=== PATIENT | female | born 1970 ===

== ENCOUNTER 2020-04-12 15:49 | Outpatient (REF) | payer OTHER, SELFPAY ==
[2020-04-12 18:01] LABS: Albumin Level 4.2 g/dL (3.5-5.0); Calcium 10.2 mg/dL (8.4-10.2); Phosphorus 2.2 mg/dL (2.7-4.5)
[2020-04-12 18:25] LABS: Free T4 (Free Thyroxine) 0.84 ng/dL (0.71-1.85); Thyroid Stimulating Hormone 0.88 mIU/mL (0.32-4.0)
[2020-04-14 20:11] LABS: Calcium (PTHI) 9.9 mg/dL (8.6-10.2); PTHI 131 pg/mL (14-64)
[2020-04-17 10:26] LABS: Calcium, Ionized 5.5 mg/dL (4.8-5.6)
== END 2020-04-12 15:50 | disposition home or self-care (01) ==
LOC: HO.LAB 15:49
PROVIDERS: PCP Internal Medicine; Referring Provider Internal Medicine; Visit Provider Internal Medicine
DX: E20.9 Hypoparathyroidism, unspecified (principal); E21.3 Hyperparathyroidism, unspecified; E55.9 Vitamin D deficiency, unspecified
CPT/HCPCS: 82040; 82306; 82310; 82330; 83970; 84100; 84439; 84443; 99202; 99204

== ENCOUNTER 2021-03-23 16:54 | Emergency (ER) | payer OTHER, SELFPAY ==
--- NOTE | ~2021-03-23 | XR_ITS ---
EXAMINATION: XR CHEST CLINICAL INFORMATION: Chest pain COMPARISON: 05/10/2019 TECHNIQUE: Frontal view of the chest was obtained. FINDINGS: No significant abnormality is noted involving the heart, lungs, mediastinum, bony thorax or soft tissues. XR/XR chest 1V IMPRESSION: Unremarkable examination.
--- NOTE | 2021-03-23 16:56 | ECG_ITS ---
Test Reason : CHEST PAIN Blood Pressure : / mmHG Vent. Rate : 073 BPM Atrial Rate : 073 BPM P-R Int : 134 ms QRS Dur : 078 ms QT Int : 386 ms P-R-T Axes : 078 003 043 degrees QTc Int : 425 ms Normal sinus rhythm Normal ECG When compared with ECG of 10-MAY-2019 17:54, No significant change was found Referred By: Generic ED Physician Electronically Signed By:ESTEBAN LEOS
[2021-03-23 18:28] VITALS: BP 147/87; PULSE 77; RESP 18; TEMP 36.3; O2SAT 100; BMI 28.5
== END 2021-03-23 19:10 | disposition left against medical advice (07) ==
PROVIDERS: Emergency Provider Emergency Medicine; PCP Internal Medicine
DX: R07.9 Chest pain, unspecified (principal)
CPT/HCPCS: 71045; 93005; 99283

== ENCOUNTER 2021-06-25 13:06 | Outpatient (REF) | payer OTHER, SELFPAY ==
--- NOTE | ~2021-06-25 | XR_ITS ---
EXAMINATION: XR LUMBAR SPINE CLINICAL INFORMATION: Low back pain, unspecified. COMPARISON: Radiograph dated 08/18/2019. TECHNIQUE: AP and lateral views of the lumbar spine and lateral view of the lumbosacral junction. FINDINGS: Vertebral body heights are normal. No fracture or spondylolisthesis. Intervertebral disc heights are maintained without significant degenerative disc disease. Bone mineralization is normal. Soft tissues are unremarkable. Minimal osteoarthritis in the right SI joint. XR/XR lumbar spine 2-3V IMPRESSION: Lumbar spine appears relatively well preserved without significant spondylosis.
== END 2021-06-25 13:07 | disposition home or self-care (01) ==
LOC: HO.HMGCX 13:06
PROVIDERS: PCP Internal Medicine; Visit Provider Internal Medicine
DX: M54.50 Low back pain, unspecified (principal); K21.9 Gastro-esophageal reflux disease without esophagitis
CPT/HCPCS: 72100

== ENCOUNTER 2021-07-30 13:26 | Outpatient (REF) | payer OTHER, SELFPAY ==
--- NOTE | ~2021-07-30 | XR_ITS ---
EXAMINATION: XR CHEST CLINICAL INFORMATION: Dyspnea COMPARISON: Previous chest x-ray most recent March 2021 TECHNIQUE: 2 views of the chest were obtained. FINDINGS: No significant abnormality is noted involving the heart, lungs, mediastinum, bony thorax or soft tissues. XR/XR chest 2V IMPRESSION: Unremarkable examination.
== END 2021-07-30 13:27 | disposition home or self-care (01) ==
LOC: HO.XRAY 13:26
PROVIDERS: PCP Internal Medicine; Visit Provider Internal Medicine
DX: R06.00 Dyspnea, unspecified (principal); G47.19 Other hypersomnia
CPT/HCPCS: 71046; 99202

== ENCOUNTER → 2021-09-17 12:49 | Outpatient (REF) | payer OTHER, SELFPAY ==
--- NOTE | 2021-09-17 14:40 | PFT_ITS ---
INDICATION: Dyspnea. SPIROMETRY: FEV1 to FVC 86% with an FEV1 of 2.46 L, which is 82% predicted, and an FVC of 2.87 L, which is 78% predicted. No significant response to bronchodilators noted. Maximum voluntary ventilation 94% predicted. LUNG VOLUMES: Total lung capacity 75% predicted with a residual volume of 69% predicted, and an expiratory reserve volume of 45% predicted. DIFFUSION CAPACITY: DLCO 50% predicted. COMPARISONS: None available. INTERPRETATION: No obstructive ventilatory defect. No significant response to bronchodilators noted and normal maximum voluntary ventilation. However, the patient does have a mild restrictive ventilatory defect consistent with mild restrictive lung disease. In addition to that, there is a decrease in the expiratory reserve volume secondary to an elevated BMI. The patient does have a moderate diffusion impairment secondary to the restrictive disease. Need to consider underlying parenchymal lung conditions. Should also correct for hemoglobin. Clinical correlation warranted. Riaz Luis MD MR/MODL / [id number]
== END ==
LOC: HO.SL 12:49
PROVIDERS: PCP Internal Medicine; Visit Provider Internal Medicine
DX: R06.00 Dyspnea, unspecified (principal); G47.19 Other hypersomnia; F17.210 Nicotine dependence, cigarettes, uncomplicated; Z79.899 Other long term (current) drug therapy
CPT/HCPCS: 94060; 94727; 94729; 95806; 99212

== ENCOUNTER 2022-09-19 12:38 | Outpatient (REF) | payer OTHER, SELFPAY ==
--- NOTE | ~2022-09-19 | XR_ITS ---
EXAMINATION: XR RIBS, RIGHT CLINICAL INFORMATION: Chest wall pain COMPARISON: Previous chest x-ray July 2021. TECHNIQUE: 3 views of the right ribs were obtained. Single chest x-ray performed. FINDINGS: Lungs are clear. No consolidation, pneumothorax, or pleural effusion. The cardiomediastinal silhouette and pulmonary vasculature are normal. There is a fracture of the distal anterior aspect of the right ninth rib. No other distinct fractures are seen. XR/XR ribs RT min 3V w CXR1V IMPRESSION: Fracture of the distal anterior right ninth rib. No airspace consolidation or pneumothorax seen.
== END 2022-09-19 12:39 | disposition home or self-care (01) ==
LOC: HO.HMGCX 12:38
PROVIDERS: PCP Internal Medicine; Visit Provider Internal Medicine
DX: R07.81 Pleurodynia (principal)
CPT/HCPCS: 71101

== ENCOUNTER 2022-10-07 15:16 | Outpatient (REF) | payer OTHER, SELFPAY ==
--- NOTE | ~2022-10-07 | CT_ITS ---
EXAMINATION: Chest CT without contrast/high-resolution CLINICAL INFORMATION: Other nonspecific abnormal finding of lung field COMPARISON: Previous chest x-ray September 2022 and chest CTA May 2019 TECHNIQUE: Axial images through the chest without contrast. Thin cut high-resolution axial images also performed. Sagittal and coronal reconstructions obtained on the technologist's workstation. This CT examination was performed using dose optimization techniques as appropriate, variously including the following: *Automated exposure control *Adjustment of mA and/or kV according to patient size (this includes techniques or standardized protocols for targeted exams where dose is matched to indication/reason for exam; i.e. extremities or head) *Use of iterative reconstruction technique DLP 1 3 8 mg/cm FINDINGS: There are several small bilateral upper lobe pulmonary nodules or micronodules. Largest left pulmonary nodule measures 2 mm for example axial image 33 series 6. Largest right pulmonary nodule measures 2 mm for example axial image 63 series 6. There is a 3 mm semisolid right middle lobe nodule near the minor fissure axial image 88 series 6. 4 mm calcified right middle lobe nodule axial image 115 series 6. 4 mm peripheral or subpleural right middle lobe nodule adjacent to the major fissure axial image 122 series 6. No evidence of interstitial lung disease. No evidence of emphysema. No bronchiectasis. No endobronchial or endotracheal lesion. The mediastinum is normal. No pleural effusion or pleural thickening. No chest wall mass or enlarged axillary lymph nodes. 3 cm cyst in the right lobe of the liver. Small right renal stones. Question mild compression fractures versus Schmorl's nodes superior endplate of the T4 vertebral body and inferior endplate of the T5 vertebral body. CT/CT chest wo con - High Res IMPRESSION: No evidence of interstitial lung disease. Small pulmonary nodules. According to the UPDATED 2017 Fleischner Society recommendations, the advised follow-up imaging for less than 6 mm solid nodule: Low risk, no chest CT follow-up and high risk, optional chest CT follow-up in one year.:
== END 2022-10-07 15:17 | disposition home or self-care (01) ==
LOC: HO.CT 15:16
PROVIDERS: PCP Internal Medicine; Visit Provider Internal Medicine
DX: R91.8 Other nonspecific abnormal finding of lung field (principal); Z87.891 Personal history of nicotine dependence
CPT/HCPCS: 71250

== ENCOUNTER → 2022-10-30 14:27 | Outpatient (BNVA) | payer OTHER, SELFPAY | PROVIDERS: PCP Internal Medicine; Visit Provider Internal Medicine | DX: G47.33 Obstructive sleep apnea (adult) (pediatric) (principal); R91.8 Other nonspecific abnormal finding of lung field; F17.210 Nicotine dependence, cigarettes, uncomplicated | CPT/HCPCS: 99212 ==

== ENCOUNTER → 2022-12-26 15:03 | Outpatient (BNVA) | payer OTHER, SELFPAY | PROVIDERS: PCP Internal Medicine; Visit Provider Internal Medicine | DX: G47.33 Obstructive sleep apnea (adult) (pediatric) (principal); R91.8 Other nonspecific abnormal finding of lung field; F17.210 Nicotine dependence, cigarettes, uncomplicated | CPT/HCPCS: 99212 ==

== ENCOUNTER 2024-01-20 13:23 | Outpatient (AMB) | payer OTHER, SELFPAY ==
--- NOTE | 2024-01-20 13:33 | MHC.PC.OV ---
Vital Signs 01/20/24 13:34 Height 5 ft 7 in Weight 163 lb BMI 25.5 BP 138/70 Blood Pressure Location Lt brachial Position Sitting Pulse 78 Pulse Source Pulse Oximeter Pulse Oximetry (%) 99 Oxygen Delivery Method Room Air Intake Visit Reasons: Bone spur on right knee Intake Note: Pt is here today c/o Rt knee pain due to spurs Allergies ibuprofen [IBUPROFEN] Allergy (Intermediate, Verified 01/20/24 13:34) STOMACH UPSET, GI upset Medication List - Last Reconciled 01/25/24 by Rose Shine MD bupropion HCl XL 300 mg PO DAILY clobetasol 0.05% 1 appl topical BID 2 weeks clonazepam 0.5 - 1 mg PO DAILY PRN nicotine 1 patch transdermal DAILY 28 days omeprazole 40 mg PO DAILY risperidone 6 mg PO DAILY venlafaxine ER 150 mg PO DAILY Tobacco use date assessed: 01/20/24 Dental Screening Dental Screen Date: 01/20/24 Did you have a dental visit in the last 12 months?: No Did you have a dental problem in the last 6 months where you did not have access to dental care?: No Was dental information given to patient?: Patient has dentist HPI Bone spur on right knee HPI Details 53-year-old lady with history of anxiety depression, followed by psychiatrist at [facility], here today complaining of pain in her right knee joint, mainly in the medial aspect. No history of trauma or falls. Has tried [id number] Tylenol and ibuprofen which affords only temporary relief. Has psoriasis now complaining of recurrent flare-ups of a rash on knees and flexural areas. Would like a referral to see Dermatology again [facility] Medical History (Updated 01/20/24 @ 14:11 by Rose Shine MD) Psoriasis Smoker MAYKEL (obstructive sleep apnea) Anxiety and depression Former smoker, stopped smoking in distant past Multiple lung nodules on CT Upper back pain Cigarette smoker motivated to quit Somnolence Sciatica neuralgia Chronic GERD Excessive daytime sleepiness Witnessed apneic spells Loud snoring Lumbago HSV (herpes simplex virus) infection Anxiety Depression Iron deficiency anemia GERD (gastroesophageal reflux disease) Psoriatic arthritis Vitamin D deficiency Hypercalcemia Hyperparathyroidism Surgical History Hx of myringotomy Hx of tonsillectomy Hx of tubal ligation Family History Father GI disease Mother Type 2 diabetes mellitus Depressed Mental health disorder Paternal Aunt Breast CA Sister Nephrolithiasis Mental health disorder Daughter Substance use disorder Son Substance use disorder Mental health disorder Daughter Mental health disorder Brother Mental health disorder Brother Mental health disorder Brother Mental health disorder Social History Housing: Apartment Patient Tobacco Use Status: Current everyday Tobacco user Cigarette Packs Per Day: 0.5 Cigarettes Per Day: 10 e-Cigarette/Vaping Use: Never Used service: No Current occupational status: unemployed Cognitive needs: No Hearing needs: No Vision needs: Yes Questionnaire PHQ-9 Over the last 2 weeks, how often have you been bothered by any of the following problems? 1. Little interest or pleasure in doing things: nearly every day 2. Feeling down, depressed, or hopeless: more than half the days 3. Trouble falling or staying asleep, or sleeping too much: more than half the days 4. Feeling tired or having little energy: nearly every day 5. Poor appetite or overeating: more than half the days 6. Feeling bad about yourself - or that you are a failure or have let yourself or your family down: more than half the days 7. Trouble concentrating on things, such as reading the newspaper or watching television: nearly every day 8. Moving or speaking so slowly that other people could have noticed. Or the opposite - being so fidgety or restless that you have been moving around a lot more than usual: not at all 9. Thoughts that you would be better off or of hurting yourself in some way: not at all Total score: 17 Depression Screening Interpretation: Positive Depression Screening Follow-up: Existing condition, In treatment and Community Mental Health Worker F/U Depression Screening Done: Yes 99218 - PHQ-9 Billing: Yes Source: Developed by Drs. Checo Kwong, Swati Garcia, Cleve Young and colleagues, with an educational jeromy from [employer]. Thrive Questionnaire Date Thrive assessed: 01/20/24 I am a: Patient What is your living situation today?: I have a steady place to live Within the past 12 months, did the food you bought not last and you didn't have the money to get more?: Sometimes True Within the past 12 months, did you worry whether your food would run out before you got money to buy more?: Sometimes True Do you have trouble paying for medicines?: No Do you have trouble getting transportation to medical appointments?: No Do you have trouble paying your heating and electricity bill?: No Do you have trouble taking care of your child, family member or friend?: No Do you have trouble with day-to-day activities such as bathing, preparing meals, shopping, managing finances, etc.?: Yes Are you currently unemployed and looking for a job?: I choose not to answer this question Are you interested in more education?: No Please select the resources that you would like help with: Housing/Jail and Utilities Currently or been in a relationship where the following occur: No concerns reported THRIVE Score: 2 AUDIT C Alcohol Use Questionnaire (AUDIT-C) 1. How often do you have a drink containing alcohol?: Never Total Score: 0 LYNDSAY-7 AMB Questionnaire LYNDSAY-7 Date LYNDSAY - 7 assessed: 01/20/24 Feeling nervous, anxious, or on edge: 3 = Nearly every day Not being able to stop or control worryin = Nearly every day Worrying too much about different things: 3 = Nearly every day Trouble relaxin = Nearly every day Being so restless that it is hard to sit still: 2 = More than half the days Becoming easily annoyed or irritable: 0 = Not at all Feeling afraid as if something awful might happen: 3 = Nearly every day Total LYNDSAY-7 score (0-4 normal; 5-9 mild; 10-14 moderate; 15-21 severe): 17 Source: Developed by Drs. Checo Kwong, Swati Garcia, Cleve Young and colleagues, with an educational jeromy from [employer]. LYNDSAY-7 Assessment Billing LYNDSAY-7 Assessment Tool: LYNDSAY-7 Assessment 05638 Review of Systems Const All systems reviewed & are unremarkable except as noted in HPI and below Eyes Reports no additional complaints ENT Reports no additional complaints Card Denies chest pain, Denies irregular heart rhythm and Denies leg edema Resp Reports as per HPI GI Reports no additional complaints Reports no additional complaints Musc Reports as per HPI Skin/Breast Reports as per HPI Neuro Reports no additional complaints Psych Reports anxiety, Reports depression and Reports panic attacks Endo Reports no additional complaints Aller/Immun Reports no additional complaints Physical exam (Primary Care) Vital Signs: Last Vital Signs Pulse 78 01/20/24 13:34 BP 138/70 01/20/24 13:34 Pulse Ox 99 01/20/24 13:34 Oxygen Delivery Method Room Air 01/20/24 13:34 BMI result Body Mass Index 25.5 Tobacco/Smoking Status: Tobacco use Status Tobacco use date assessed 01/20/24 01/20/24 13:38 Patient Tobacco Use Status Current everyday Tobacco 01/20/24 13:38 e-Cigarette/Vaping Use Never Used 01/20/24 13:38 PHQ-9: PHQ-9 Score PHQ-9: Total score 17 01/20/24 14:12 Depression Screening Interpretation: Positive Depression Screening Follow-up: Existing condition, In treatment and Community Mental Health Worker F/U Thrive Assessment: Date of Thrive Assessment Date Thrive assessed 01/20/24 01/20/24 13:38 Currently or been in a relationship where the following occur: No concerns reported Const Nutritional Appearance: overweight Orientation/consciousness: patient oriented x3 [facility] General nose exam: Normal external nose present Mouth: Normal oral and palatal mucosa present, oropharynx normal and moist mucous membranes Neck Neck: Yes full ROM, Yes no lymphadenopathy and Yes supple Resp Effort & Inspection: normal respiratory effort and able to speak in complete sentences Auscultation: clear to auscultation bilaterally Cardio Rate: regular rate Rhythm: regular rhythm Heart sounds: S1 normal heart sound present and S2 normal heart sound present GI Palpation (GI): Soft to palpation, nontender, no guarding and no masses Auscultation: normal bowel sounds Skin Other: Scaly slightly raised erythematous patch on Flexeril areas on both upper extremities. Neuro General: patient oriented x3, gait normal, tone normal, moves all extremities, Normal light touch and pain sensation and no focal motor deficits Extrem Other: Positive crepitus on right knee, tender to palpation over medial aspect of right knee no gross bone deformity no joint swelling seen Assessment and Plan Assessment & Plan (1) Right medial knee pain: Code(s): M25.561 - Pain in right knee Plan: X-ray of right knee ordered, (2) Psoriasis: Code(s): L40.9 - Psoriasis, unspecified Plan: Prescription sent for clobetasol 0 point 0 5%, to apply sparingly to affected area twice a day for no more than 2 weeks at a time. Dermatology consult ordered Orders: Orders XR knee RT 4V 01/20/24 M25.561 - Pain in right knee Referrals Dermatology Referral L40.9 - Psoriasis, unspecified Medications: New clobetasol 0.05% 1 appl topical BID 2 weeks 30 grams 0RF L40.9 - Psoriasis, unspecified Coding Level of Care Code Est Pt Level 4 (21167) Diagnoses Right medial knee pain M25.561 Psoriasis L40.9 Additional Codes LYNDSAY-7 Assessment Billing - LYNDSAY-7 Assessment Tool: LYNDSAY-7 Assessment 75129 ([id number])
[2024-01-20 13:34] VITALS: BP 138/70; PULSE 78; O2SAT 99; BMI 25.5
== END 2024-01-20 15:56 | disposition home or self-care (01) ==
PROVIDERS: PCP Internal Medicine; Visit Provider Internal Medicine
DX: M25.561 Pain in right knee (principal); L40.9 Psoriasis, unspecified
CPT/HCPCS: 99214

== ENCOUNTER 2024-01-20 14:14 | Outpatient (REF) | payer OTHER, SELFPAY ==
--- NOTE | ~2024-01-20 | XR_ITS ---
EXAMINATION: XR KNEE, RIGHT CLINICAL INFORMATION: Pain in the right knee COMPARISON: 08/18/2019 TECHNIQUE: Four views of the right knee. FINDINGS: No fracture or joint effusion. Alignment is anatomic. Joint spaces are maintained. No abnormal soft tissue calcification. XR/XR knee RT 4V IMPRESSION: Normal right knee.
== END 2024-01-20 14:15 | disposition home or self-care (01) ==
LOC: HO.HMGCX 14:14
PROVIDERS: PCP Internal Medicine; Visit Provider Internal Medicine
DX: M25.561 Pain in right knee (principal)
CPT/HCPCS: 73564

== ENCOUNTER 2024-03-30 08:00 | Outpatient (AMB) | payer OTHER, SELFPAY ==
--- NOTE | 2024-03-30 08:01 | MHC.OFFWIV ---
Intake Vital Signs 03/30/24 08:02 Height 5 ft 7 in Weight 176 lb BMI 27.6 BP 122/84 Blood Pressure Location Rt brachial Position Sitting Pulse 72 Pulse Source Pulse Oximeter Temp 98.1 F Temp Source Oral Pulse Oximetry (%) 99 Oxygen Delivery Method Room Air Intake Visit Reasons: EP-rt ear infection Intake Note: pt c/o RT ear pain. ? infection. Started 2 weeks ago. Worsening Patient Tobacco Use Status: Former Tobacco user Allergies ibuprofen [IBUPROFEN] Allergy (Intermediate, Verified 03/30/24 08:01) STOMACH UPSET, GI upset Do you need a note to return to daycare/school/sports/work: No HPI HPI Comments History of Present Illness Details In his a 53-year-old female complaining of right ear pain for 2 weeks. She denies any changes in her hearing. She states the pain radiates down to her jaw and into her eye [facility] Medical History (Updated 03/30/24 @ 08:42 by Gabriela Valle PA-C) Psoriasis Smoker MAYKEL (obstructive sleep apnea) Anxiety and depression Former smoker, stopped smoking in distant past Multiple lung nodules on CT Upper back pain Cigarette smoker motivated to quit Somnolence Sciatica neuralgia Chronic GERD Excessive daytime sleepiness Witnessed apneic spells Loud snoring Lumbago HSV (herpes simplex virus) infection Anxiety Depression Iron deficiency anemia GERD (gastroesophageal reflux disease) Psoriatic arthritis Vitamin D deficiency Hypercalcemia Hyperparathyroidism Surgical History Hx of myringotomy Hx of tonsillectomy Hx of tubal ligation Family History Father GI disease Mother Type 2 diabetes mellitus Depressed Mental health disorder Paternal Aunt Breast CA Sister Nephrolithiasis Mental health disorder Daughter Substance use disorder Son Substance use disorder Mental health disorder Daughter Mental health disorder Brother Mental health disorder Brother Mental health disorder Brother Mental health disorder Social History Housing: Apartment Patient Tobacco Use Status: Former Tobacco user Cigarette Packs Per Day: 0.5 Cigarettes Per Day: 10 e-Cigarette/Vaping Use: Never Used service: No Current occupational status: unemployed Cognitive needs: No Hearing needs: No Vision needs: Yes Review of Systems Const All systems reviewed & are unremarkable except as noted in HPI and below Physical Exam Vital Signs: Last Vital Signs Temp 98.1 F 03/30/24 08:02 Pulse 72 03/30/24 08:02 BP 122/84 03/30/24 08:02 Pulse Ox 99 03/30/24 08:02 Oxygen Delivery Method Room Air 03/30/24 08:02 BMI result Body Mass Index 27.6 Const General: cooperative, healthy appearing, comfortable and no acute distress Orientation/consciousness: patient oriented x3 HEENT Head: Yes normal to inspection, Yes No palpable skull fracture present and Yes normocephalic Ears: hearing grossly normal bilaterally, external ears normal, TM normal on the left, EAC's normal, mastoids normal (no TTP) bilaterally, Abnormal EAC present (once cerumen removed, right side) erythema and edema, TM abnormal (once cleared of cerumen, right sided) dull, wth effusion, erythematous and with loss of landmarks and unable to visualize TM bilaterally (Cerumen impaction) General nose exam: Normal external nose present Face and sinus: Yes normal facial exam Mouth: Normal oral and palatal mucosa present Teeth and gingiva: dentition normal Throat: Yes posterior oropharynx normal Eyes General: appearance normal, both eyes and all related structures Neck Neck: Yes normal visual inspection, Yes full ROM, Yes no lymphadenopathy, Yes no meningeal signs, Yes trachea midline and Yes supple Resp Effort & Inspection: normal respiratory effort and able to speak in complete sentences Skin General skin exam: no rashes or lesions noted Neuro General: patient oriented x3 and no meningeal signs Office Procedures Cerumen Removal From which ear canal was the cerumen removed: bilateral Removal: irrigation Notes: patient tolerated procedure well, no complications and ear canal clear [id number] Irrigation/Lavage Assessment & Plan Assessment & Plan (1) Otitis media: Code(s): H66.90 - Otitis media, unspecified, unspecified ear Qualifiers: Otitis media type: suppurative Chronicity: acute Laterality: right Recurrence: non-recurrent Spontaneous tympanic membrane rupture: without spontaneous rupture Qualified Code(s): H66.001 - Acute suppurative otitis media without spontaneous rupture of ear drum, right ear Plan: Once ear canals were clean, infection noted in the right ear, sent abx to pharmacy (2) Otitis externa: Code(s): H60.90 - Unspecified otitis externa, unspecified ear Qualifiers: Otitis externa type: other infective Chronicity: acute Laterality: right Qualified Code(s): H60.391 - Other infective otitis externa, right ear Plan: Once ear canals were clean, infection noted in the right ear Sent drops to pharmacy Plan See above Medications: New amoxicillin 500 mg PO Q12H 20 tabs 0RF [id number] 3.5-10,000-1 mg/mL-unit/mL-% 4 drps otic (ear) right QID 7 days 10 mL 0RF Coding Level of Care Code Est Pt Level 4 (64227) Diagnoses Non-recurrent acute suppurative otitis media of right ear without spontaneous rupture of tympanic membrane H66.001 Otitis media type: suppurative Chronicity: acute Laterality: right Recurrence: non-recurrent Spontaneous tympanic membrane rupture: without spontaneous rupture Other infective acute otitis externa of right ear H60.391 Otitis externa type: other infective Chronicity: acute Laterality: right CPT Codes Office Procedure - CPT: 81854-Nem Irrigation/Lavage ([id number])
[2024-03-30 08:02] VITALS: BP 122/84; PULSE 72; TEMP 36.7; O2SAT 99; BMI 27.6
== END 2024-03-30 11:34 | disposition home or self-care (01) ==
PROVIDERS: PCP Internal Medicine; Visit Provider Physician Assistant
DX: H66.001 Acute suppurative otitis media without spontaneous rupture of ear drum, right ear (principal); H60.391 Other infective otitis externa, right ear; H61.23 Impacted cerumen, bilateral

== ENCOUNTER → 2024-03-30 08:00 | Outpatient (BNVA) | payer OTHER, SELFPAY | PROVIDERS: PCP Internal Medicine | DX: H66.001 Acute suppurative otitis media without spontaneous rupture of ear drum, right ear (principal); H61.23 Impacted cerumen, bilateral | CPT/HCPCS: 69209; 99212 ==

== ENCOUNTER 2024-04-08 08:01 | Outpatient (AMB) | payer OTHER, SELFPAY ==
[2024-04-08 08:06] VITALS: BP 130/80; PULSE 72; O2SAT 98; BMI 27.6
--- NOTE | 2024-04-08 08:06 | AM.OFFWIN_ITS ---
Intake Vital Signs 04/08/24 08:06 Height 5 ft 7 in Weight 176 lb BMI 27.6 BP 130/80 Blood Pressure Location Rt brachial Position Sitting Pulse 72 Pulse Source Pulse Oximeter Pulse Oximetry (%) 98 Oxygen Delivery Method Room Air Intake Visit Reasons: EP RT ear pain/infection not better. Intake Note: Ptient here for right ear pain and was here last week, was put on antibiotics which have not helped and has now traveled to the left ear Patient Tobacco Use Status: Former Tobacco user Allergies ibuprofen [IBUPROFEN] Allergy (Intermediate, Verified 04/08/24 08:08) STOMACH UPSET, GI upset Do you need a note to return to daycare/school/sports/work: No HPI HPI Comments History of Present Illness Details Patient is a 53-year-old female complaining of continued right ear pain that radiates into her jaw as well as now left ear pain. She denies any changes in her hearing or fevers. She was seen in this clinic on 03/30 and pr escribed polymyxin B eardrops as well as amoxicillin. She states she took both medications in fall with no resolution in her symptoms. She denies any history of ear problems or seeing an ENT previously. She denies history of diabetes. [facility] Medical History (Updated 04/08/24 @ 08:24 by Gabriela Valle PA-C) Psoriasis Smoker MAYKLE (obstructive sleep apnea) Anxiety and depression Former smoker, stopped smoking in distant past Multiple lung nodules on CT Upper back pain Cigarette smoker motivated to quit Somnolence Sciatica neuralgia Chronic GERD Excessive daytime sleepiness Witnessed apneic spells Loud snoring Lumbago HSV (herpes simplex virus) infection Anxiety Depression Iron deficiency anemia GERD (gastroesophageal reflux disease) Psoriatic arthritis Vitamin D deficiency Hypercalcemia Hyperparathyroidism Surgical History Hx of myringotomy Hx of tonsillectomy Hx of tubal ligation Family History Father GI disease Mother Type 2 diabetes mellitus Depressed Mental health disorder Paternal Aunt Breast CA Sister Nephrolithiasis Mental health disorder Daughter Substance use disorder Son Substance use disorder Mental health disorder Daughter Mental health disorder Brother Mental health disorder Brother Mental health disorder Brother Mental health disorder Social History Housing: Apartment Patient Tobacco Use Status: Former Tobacco user Cigarette Packs Per Day: 0.5 Cigarettes Per Day: 10 e-Cigarette/Vaping Use: Never Used service: No Current occupational status: unemployed Cognitive needs: No Hearing needs: No Vision needs: Yes Review of Systems Const All systems reviewed & are unremarkable except as noted in HPI and below Physical Exam Vital Signs: Last Vital Signs Pulse 72 04/08/24 08:06 BP 130/80 04/08/24 08:06 Pulse Ox 98 04/08/24 08:06 Oxygen Delivery Method Room Air 04/08/24 08:06 BMI result Body Mass Index 27.6 Const General: cooperative, healthy appearing, comfortable and no acute distress Orientation/consciousness: patient oriented x3 HEENT Head: Yes normal to inspection, Yes No palpable skull fracture present and Yes normocephalic Ears: hearing grossly normal bilaterally, external ears normal, mastoids normal (no TTP) bilaterally, Abnormal EAC present erythema on the right and edema on the right and TM abnormal (bilateral) wth effusion and with loss of landmarks General nose exam: Normal external nose present Face and sinus: Yes normal facial exam Mouth: Normal oral and palatal mucosa present Teeth and gingiva: dentition normal Throat: Yes posterior oropharynx normal Eyes General: appearance normal, both eyes and all related structures Neck Neck: Yes normal visual inspection, Yes full ROM, Yes no lymphadenopathy, Yes no meningeal signs, Yes trachea midline and Yes supple Resp Effort & Inspection: normal respiratory effort and able to speak in complete sentences Skin General skin exam: no rashes or lesions noted Neuro General: patient oriented x3 and no meningeal signs Assessment & Plan Assessment & Plan (1) Otitis media: Code(s): H66.90 - Otitis media, unspecified, unspecified ear Qualifiers: Otitis media type: suppurative Chronicity: acute Laterality: bilateral Recurrence: recurrent Spontaneous tympanic membrane rupture: without spontaneous rupture Qualified Code(s): H66.006 - Acute suppurative otitis media without spontaneous rupture of ear drum, recurrent, bilateral Plan: Increased antibiotics to Augmentin for 10 days, also sent drops for her right ear because it is swollen and erythematous. Advised if this round of antibiotics does not work, she should be referred to an ENT for further workup. Plan See above Medications: New prednisolone acetate 1% Apply one drop to right EAR up to 4 times daily 1 drp ophthalmic (eye) QID 10 mL 0RF amoxicillin-pot clavulanate 875-125 mg 1 tab PO Q12H 10 tabs 0RF Discontinued amoxicillin Discontinued Reason: Patient Completed Course 500 mg PO Q12H 20 tabs 0RF Coding Level of Care Code Est Pt Level 3 (49014) Diagnoses Recurrent acute suppurative otitis media without spontaneous rupture of tympanic membrane of both sides H66.006 Otitis media type: suppurative Chronicity: acute Laterality: bilateral Recurrence: recurrent Spontaneous tympanic membrane rupture: without spontaneous rupture
== END 2024-04-08 08:49 | disposition home or self-care (01) ==
PROVIDERS: PCP Internal Medicine; Visit Provider Physician Assistant
DX: H66.006 Acute suppurative otitis media without spontaneous rupture of ear drum, recurrent, bilateral (principal)

== ENCOUNTER → 2024-04-08 08:01 | Outpatient (BNVA) | payer OTHER, SELFPAY | PROVIDERS: PCP Internal Medicine | DX: H66.006 Acute suppurative otitis media without spontaneous rupture of ear drum, recurrent, bilateral (principal) | CPT/HCPCS: 99212 ==

== ENCOUNTER 2024-05-12 11:54 | Outpatient (AMB) | payer OTHER, SELFPAY ==
--- NOTE | 2024-05-12 12:50 | AM.OFFWIN_ITS ---
Intake Vital Signs 05/12/24 12:52 Height 5 ft 7 in Weight 177 lb BMI 27.7 BP 102/64 Blood Pressure Location Lt brachial Position Sitting Pulse 73 Pulse Source Pulse Oximeter Pulse Oximetry (%) 98 Oxygen Delivery Method Room Air Intake Visit Reasons: EP pain on LT hip, nausea, adominal pain Intake Note: Patient here for lower left back pain, nausea, abdominal pain that has been present for about 3-4 days. denies any UTI symptoms. Patient Tobacco Use Status: Former Tobacco user Allergies ibuprofen [IBUPROFEN] Allergy (Intermediate, Verified 05/12/24 12:51) STOMACH UPSET, GI upset Do you need a note to return to daycare/school/sports/work: No HPI EP pain on LT hip, nausea, adominal pain HPI Details This note is constructed using voice recognition software. While every effort has been made to ensure accuracy, transplant worker errors may have been included. The patient is a 53 year old female who presents to the clinic today with left lower back pain radiating around to the pelvic region with nausea for the past 3 days. She reports normal BM, typically every other day, last yesterday without blood. She denies frequency, urgency, burning on urination or any change in color, odor or volume. She does report a history of kidney stones. She is postmenopausal for the past 2 years. [facility] Medical History (Updated 04/08/24 @ 08:24 by Gabriela Valle PA-C) Psoriasis Smoker MAYKEL (obstructive sleep apnea) Anxiety and depression Former smoker, stopped smoking in distant past Multiple lung nodules on CT Upper back pain Cigarette smoker motivated to quit Somnolence Sciatica neuralgia Chronic GERD Excessive daytime sleepiness Witnessed apneic spells Loud snoring Lumbago HSV (herpes simplex virus) infection Anxiety Depression Iron deficiency anemia GERD (gastroesophageal reflux disease) Psoriatic arthritis Vitamin D deficiency Hypercalcemia Hyperparathyroidism Surgical History Hx of myringotomy Hx of tonsillectomy Hx of tubal ligation Family History Father GI disease Mother Type 2 diabetes mellitus Depressed Mental health disorder Paternal Aunt Breast CA Sister Nephrolithiasis Mental health disorder Daughter Substance use disorder Son Substance use disorder Mental health disorder Daughter Mental health disorder Brother Mental health disorder Brother Mental health disorder Brother Mental health disorder Social History Housing: Apartment Patient Tobacco Use Status: Former Tobacco user Cigarette Packs Per Day: 0.5 Cigarettes Per Day: 10 e-Cigarette/Vaping Use: Never Used service: No Current occupational status: unemployed Cognitive needs: No Hearing needs: No Vision needs: Yes Review of Systems Const All systems reviewed & are unremarkable except as noted in HPI and below Physical Exam Vital Signs: Last Vital Signs Pulse 73 05/12/24 12:52 BP 102/64 05/12/24 12:52 Pulse Ox 98 05/12/24 12:52 Oxygen Delivery Method Room Air 05/12/24 12:52 BMI result Body Mass Index 27.7 Const General: cooperative, healthy appearing, comfortable, no acute distress and well developed Orientation/consciousness: patient oriented x3 Limitations: no limitations Neck Neck: Yes normal visual inspection and Yes full ROM Resp Effort & Inspection: normal respiratory effort and able to speak in complete sentences Auscultation: clear to auscultation bilaterally Cardio Rate: regular rate Rhythm: regular rhythm Heart sounds: normal S1 and S2 GI Inspection: Yes normal to inspection Palpation (GI): Soft to palpation and nontender Back/Spine/Pelvis Other: No area tender to palpation, however has tenderness in left flank on lateral rotation. Skin General skin exam: no rashes or lesions noted Neuro General: patient oriented x3 Extrem General: Yes normal to inspection Assessment & Plan Assessment & Plan (1) Kidney stone: Code(s): N20.0 - Calculus of kidney Plan: In office urine positive for blood and otherwise negative, likely consistent with kidney stone, which would fit picture with physical examination and history. Advised increased hydration. Patient to continue with [id number] NSAIDs for pain management. Advised ER with sudden acute worsening of pain, or inability to urinate. Discussed potential treatment with alpha blockers for expulsion, however patient is already on a medication in his class. In discussing diagnosis, she reports that she had been seeing a specialist in the past, advised to follow up with PCP for referral to Urology should she continue to have symptoms. Plan See above for full details and plan. Coding Level of Care Code Est Pt Level 3 (62728) Diagnoses Kidney stone N20.0
[2024-05-12 12:52] VITALS: BP 102/64; PULSE 73; O2SAT 98; BMI 27.7
== END 2024-05-12 14:53 | disposition home or self-care (01) ==
PROVIDERS: PCP Internal Medicine; Visit Provider Registered Nurse
DX: Z13.9 Encounter for screening, unspecified (principal); N20.0 Calculus of kidney

== ENCOUNTER → 2024-05-12 11:54 | Outpatient (BNVA) | payer OTHER, SELFPAY | PROVIDERS: PCP Internal Medicine; Visit Provider Registered Nurse | DX: N20.0 Calculus of kidney (principal) | CPT/HCPCS: 81003; 99212 ==

== ENCOUNTER 2024-05-17 11:49 | Outpatient (AMB) | payer OTHER, SELFPAY ==
--- NOTE | 2024-05-17 12:09 | MHC.OFFWIV ---
Intake Vital Signs 05/17/24 12:10 Height 5 ft 7 in Weight 175 lb BMI 27.4 BP 110/72 Blood Pressure Location Rt brachial Position Sitting Pulse 83 Pulse Source Pulse Oximeter Pulse Oximetry (%) 100 Intake Visit Reasons: EP severe pain ? kidney stones was here last week Intake Note: pt is here for c/o severe pain, patient states she was told she has kdney stones Patient Tobacco Use Status: Former Tobacco user Allergies ibuprofen [IBUPROFEN] Allergy (Intermediate, Verified 05/17/24 12:14) STOMACH UPSET, GI upset Do you need a note to return to daycare/school/sports/work: No HPI EP severe pain ? kidney stones was here last week HPI Details This note is constructed using voice recognition software. While every effort has been made to ensure accuracy, sack sewer machine errors may have been included. The patient is a 53 year old female who presents to the clinic today with lower abdominal pain, concern for kidney stone. She was last seen in clinic on May 12 for the same, and was advised to be seen in the emergency room should she develop worsening pain. Her pain has gotten worse since that time, and decided to present to the walk-in clinic in the event that there was some different intervention that we could do. She notes she has a history of kidney stones, and used to follow urologist, but has been unable to get back to Urology after insurance changes. She has not requested a referral from her primary care to Urology as she reports that it is difficult to get into an appointment with her primary care. she is taking Tylenol with little to no effect. She reports some nausea with the pain. She denies fever, chills, flank pain. She denies any urgency, burning, or frequency of urine. There are no bowel pattern changes. [facility] Medical History (Updated 04/08/24 @ 08:24 by Gabriela Valle PA-C) Psoriasis Smoker MAYKEL (obstructive sleep apnea) Anxiety and depression Former smoker, stopped smoking in distant past Multiple lung nodules on CT Upper back pain Cigarette smoker motivated to quit Somnolence Sciatica neuralgia Chronic GERD Excessive daytime sleepiness Witnessed apneic spells Loud snoring Lumbago HSV (herpes simplex virus) infection Anxiety Depression Iron deficiency anemia GERD (gastroesophageal reflux disease) Psoriatic arthritis Vitamin D deficiency Hypercalcemia Hyperparathyroidism Surgical History Hx of myringotomy Hx of tonsillectomy Hx of tubal ligation Family History Father GI disease Mother Type 2 diabetes mellitus Depressed Mental health disorder Paternal Aunt Breast CA Sister Nephrolithiasis Mental health disorder Daughter Substance use disorder Son Substance use disorder Mental health disorder Daughter Mental health disorder Brother Mental health disorder Brother Mental health disorder Brother Mental health disorder Social History Housing: Apartment Patient Tobacco Use Status: Former Tobacco user Cigarette Packs Per Day: 0.5 Cigarettes Per Day: 10 e-Cigarette/Vaping Use: Never Used service: No Current occupational status: unemployed Cognitive needs: No Hearing needs: No Vision needs: Yes Review of Systems Const All systems reviewed & are unremarkable except as noted in HPI and below Physical Exam Vital Signs: Last Vital Signs Pulse 83 05/17/24 12:10 BP 110/72 05/17/24 12:10 Pulse Ox 100 05/17/24 12:10 BMI result Body Mass Index 27.4 Const General: cooperative, healthy appearing, comfortable, no acute distress and well developed Orientation/consciousness: patient oriented x3 Limitations: no limitations Resp Effort & Inspection: normal respiratory effort and able to speak in complete sentences Auscultation: clear to auscultation bilaterally Cardio Rate: regular rate Rhythm: regular rhythm Heart sounds: normal S1 and S2 GI Inspection: Yes normal to inspection Palpation (GI): Soft to palpation and nontender General: Yes no CVA tenderness Back/Spine/Pelvis Back: no CVA tenderness Skin General skin exam: no rashes or lesions noted Neuro General: patient oriented x3 Extrem General: Yes normal to inspection Results AMB Urinalysis, Automated UA Leukoctes 0 Adamaris/uL Last Edit by Uyen Palacios CMA on 05/17/24 12:16 UA Nitrite Negative Last Edit by Uyen Palacios CMA on 05/17/24 12:16 UA Urobilinogen 0.2 mg/dL Last Edit by Uyen Palacios CMA on 05/17/24 12:16 UA Protein 0 mg/dL Last Edit by Uyen Palacios CMA on 05/17/24 12:16 UA pH 6.0 Last Edit by Uyen Palacios CMA on 05/17/24 12:16 UA Blood 25 David/uL Last Edit by Uyen Palacios CMA on 05/17/24 12:16 UA Specific Weldon 1.030 Last Edit by Uyen Palacios CMA on 05/17/24 12:16 UA Ketone Negative Last Edit by Uyen Palacios CMA on 05/17/24 12:16 UA Bilirubin 0 mg/dL Last Edit by Uyen Palacios CMA on 05/17/24 12:16 UA Glucose 0 mg/dL Last Edit by Uyen Palacios CMA on 05/17/24 12:16 Results Reviewed Results Reviewed: Laboratory Last Values Urine pH (Auto) 6.0 05/17/24 12:15 Specific Weldon (Auto) 1.030 05/17/24 12:15 Urine Protein (Auto) 0 mg/dL 05/17/24 12:15 Glucose (UA)(Auto) 0 mg/dL 05/17/24 12:15 Urine Ketones (Auto) Negative 05/17/24 12:15 Urine Blood (Auto) 25 David/uL 05/17/24 12:15 Urine Nitrite (Auto) Negative 05/17/24 12:15 Urine Bilirubin (Auto) 0 mg/dL 05/17/24 12:15 Urine Urobilinogen (Auto) 0.2 mg/dL 05/17/24 12:15 Leukocyte Esterase (Auto) 0 Adamaris/uL 05/17/24 12:15 Assessment & Plan Assessment & Plan (1) Kidney stone: Code(s): N20.0 - Calculus of kidney Plan: It is unclear if the patient does have a kidney stone, however she continues to have blood in her urine consistent with likely kidney stone and symptoms that are consistent, with a history of kidney stones. Given that she has had worsening pain since the last visit to the walk-in clinic I advised her to be seen in the emergency room as she may require imaging to determine the source of her pain. I contacted the emergency room of her choice, based 8, and advised them of the expect. She declined need for EMS, and we will drive by private car. Advised patient to follow up with her PCP after discharge from the emergency room. Plan See above for full details and plan. Orders: Orders AMB Urinalysis Automated Today Z13.9 - Encounter for screening, unspecified Coding Level of Care Code Est Pt Level 3 (72971) Diagnoses Kidney stone N20.0
[2024-05-17 12:10] VITALS: BP 110/72; PULSE 83; O2SAT 100; BMI 27.4
== END 2024-05-17 12:34 | disposition home or self-care (01) ==
PROVIDERS: PCP Internal Medicine; Visit Provider Registered Nurse
DX: N20.0 Calculus of kidney (principal); Z13.9 Encounter for screening, unspecified

== ENCOUNTER → 2024-05-17 11:49 | Outpatient (BNVA) | payer OTHER, SELFPAY | PROVIDERS: PCP Internal Medicine; Visit Provider Registered Nurse | DX: N20.0 Calculus of kidney (principal) | CPT/HCPCS: 81003; 99212 ==

== ENCOUNTER 2024-05-20 13:24 | Outpatient (AMB) | payer OTHER, SELFPAY ==
[2024-05-20 13:35] VITALS: BP 128/78; BMI 24.6
--- NOTE | 2024-05-20 13:35 | MHC.OFFVIS ---
Vital Signs 05/20/24 13:35 Height 5 ft 7 in Weight 157 lb BMI 24.6 BP 128/78 Intake Visit Reasons: STD testing ONLY ok per Ericka Tenter Feeder Required: No Information Interpreted: clinical only Final Operations Technician: Final Operations Technician Present Allergies ibuprofen [IBUPROFEN] Allergy (Intermediate, Verified 05/20/24 13:37) STOMACH UPSET, GI upset Medication List - Last Reconciled 05/20/24 by Zaynab Cordoba CNM bupropion HCl XL 300 mg PO DAILY bupropion HCl XL 150 mg PO DAILY clobetasol 0.05% 1 appl topical BID 2 weeks clonazepam 0.5 - 1 mg PO DAILY PRN diphenhydramine HCl (Banophen) 50 mg PO BEDTIME csqlmjta-tuczqhwyx-[id number] 3.5-10,000-1 mg/mL-unit/mL-% 4 drps otic (ear) right QID 7 days olanzapine 15 mg PO BEDTIME omeprazole 40 mg PO DAILY prazosin 2 mg PO BEDTIME prednisolone acetate 1% 1 drp ophthalmic (eye) QID risperidone 6 mg PO DAILY venlafaxine ER 150 mg PO DAILY venlafaxine ER 75 mg PO DAILY Post menopausal: Yes (2021) HPI HPI STD testing ONLY ok per Ericka: Details: Patient is here because she wants to get checked for STD results she said she was in the emergency room the other day and they told her to follow-up with property appraiser and also urologist. She does not have a urologist in the area she has her primary care provider who she has been seen for several years but has not established with urology here she says she has a known history of kidney stones but they told her at [facility] ER that the stones are not moving and there should be causing pain they are not in her ureters. Her pain is in her pelvic region if feels deep and inside and it is also her mons pubis area that is what she keeps pointing to she calls it her groin. She wants it checking for STDs though she is not particularly worried she has been with her partner for 13 years she is not having any abnormal odor discharge itching or anything. The last time she had sex was 3 weeks ago she is not having any urgency of her urination or pain either before or after urination. The pain is constant and steady in her lower abdomen. She said that nothing showed up at [facility] and they could not find anything to explain her pain. She said that she brought her records to the 5th floor and they were received there but review of the system does not reveal any records that are scanned in from any ER she was seen at urgent care on 05/17 in [place] and assessed there and had a UA that was within normal limits but it was not sent for culture. Please see their note. [facility] Medical History Psoriasis Smoker MAYKEL (obstructive sleep apnea) Anxiety and depression Former smoker, stopped smoking in distant past Multiple lung nodules on CT Upper back pain Cigarette smoker motivated to quit Somnolence Sciatica neuralgia Chronic GERD Excessive daytime sleepiness Witnessed apneic spells Loud snoring Lumbago HSV (herpes simplex virus) infection Anxiety Depression Iron deficiency anemia GERD (gastroesophageal reflux disease) Psoriatic arthritis Vitamin D deficiency Hypercalcemia Hyperparathyroidism Surgical History Hx of myringotomy Hx of tonsillectomy Hx of tubal ligation Family History Father GI disease Mother Type 2 diabetes mellitus Depressed Mental health disorder Paternal Aunt Breast CA Sister Nephrolithiasis Mental health disorder Daughter Substance use disorder Son Substance use disorder Mental health disorder Daughter Mental health disorder Brother Mental health disorder Brother Mental health disorder Brother Mental health disorder Social History Housing: Apartment Patient Tobacco Use Status: Former Tobacco user Cigarette Packs Per Day: 0.5 Cigarettes Per Day: 10 e-Cigarette/Vaping Use: Never Used service: No Current occupational status: unemployed Cognitive needs: No Hearing needs: No Vision needs: Yes Female Reproductive History Menstrual Age of Menarche: 12 control method: permanent sterilization Full term: 3 Date of last pap smear: 08/05/19 (negative per patient) History of abnormal pap smear: Yes (30 yrs ago) Physical Exam Vital Signs: Last Vital Signs BP 128/78 05/20/24 13:35 BMI result Body Mass Index 24.6 Other: Normal pelvic exam no abnormal discharge thin white discharge patient is very tense with exam before the exam was initiated. Her tenderness is suprapubically and over her mons pubis but does not include her uterus or adnexa it is more in her bladder area or potentially her peritoneum gastrointestinal organs. Results Reviewed Results Reviewed: There were no scanned documents currently in her chart from [facility] ER no scanned CT scan no lab culture results. Assessment & Plan Assessment & Plan (1) Pelvic pain: Code(s): R10.2 - Pelvic and perineal pain Category: Medical Plan Patient is here because she wants to get checked for STD results she said she was in the emergency room the other day and they told her to follow-up with property appraiser and also urologist. She does not have a urologist in the area she has her primary care provider who she has been seen for several years but has not established with urology here she says she has a known history of kidney stones but they told her at [facility] ER that the stones are not moving and there should be causing pain they are not in her ureters. Her pain is in her pelvic region if feels deep and inside and it is also her mons pubis area that is what she keeps pointing to she calls it her groin. She wants it checking for STDs though she is not particularly worried she has been with her partner for 13 years she is not having any abnormal odor discharge itching or anything. The last time she had sex was 3 weeks ago she is not having any urgency of her urination or pain either before or after urination. The pain is constant and steady in her lower abdomen. She said that nothing showed up at [facility] and they could not find anything to explain her pain. She said that she brought her records to the 5th floor and they were received there but review of the system does not reveal any records that are scanned in from any ER she was seen at urgent care on 05/17 in [place] and assessed there and had a UA that was within normal limits but it was not sent for culture. Please see their note. Patient is tense with the pelvic exam her cervix is pink and smooth there is a thin white discharge no particular abnormal discharge noted. She is nontender with her uterus and adnexa she is tender suprapubically and she also complains of tenderness in her mons pubis. She has some healing folliculitis scars in groin area. Testing was done for gonorrhea chlamydia trichomoniasis Gardnerella and Keely I shared with the patient that I do not see anything that can explain her pain from a gynecologic point of view since there no CT scans available I can not hair. Patient says she has not been seen by welder repair since a visit with me about more than 3 years ago when this computer system has been in use in last 3 years. She may call for the results tomorrow as she is not on the portal she should be scheduled for welder repair annual exam as well I am also going to order a pelvic ultrasound for her and that will get reviewed in the future. Most of all she needs to follow-up with her primary care provider and urology and possibly gastroenterology. Orders: Orders US pelvic and transvaginal Today R10.2 - Pelvic and perineal pain Coding Level of Care Code New Pt Level 4 (99813) Diagnoses Pelvic pain R10.2 Time Spent (min) 35 Comment
== END 2024-05-20 14:39 | disposition home or self-care (01) ==
PROVIDERS: PCP Internal Medicine; Visit Provider Advanced Practice Midwife
DX: R10.2 Pelvic and perineal pain (principal)
CPT/HCPCS: 99204

== ENCOUNTER 2024-05-20 13:24 | Outpatient (REF) | payer OTHER, SELFPAY ==
[2024-05-21 04:55] LABS: CT PCR NOT DETECTED (Not Detect.); NG PCR NOT DETECTED (Not Detect.)
[2024-05-21 09:47] LABS: Bacterial Vaginosis PCR POSITIVE (Negative); Candida Group PCR NOT DETECTED (Not Detect); Candida glab krusei PCR NOT DETECTED (Not Detect); Trichomonas vaginalis PCR NOT DETECTED (Not Detect)
== END 2024-05-20 13:25 | disposition home or self-care (01) ==
LOC: HO.LAB 13:24
PROVIDERS: PCP Internal Medicine; Visit Provider Advanced Practice Midwife
DX: R10.2 Pelvic and perineal pain (principal); Z20.2 Contact with and (suspected) exposure to infections with a predominantly sexual mode of transmission; N89.8 Other specified noninflammatory disorders of vagina
CPT/HCPCS: 0352U; 87086; 87491; 87591; 99202

== ENCOUNTER 2024-05-20 15:15 | Outpatient (REF) | payer OTHER, SELFPAY | END 2024-05-20 15:16 | disposition home or self-care (01) | LOC: HO.LNP 15:15 | PROVIDERS: Visit Provider Advanced Practice Midwife | DX: Z13.89 Encounter for screening for other disorder (principal) ==

== ENCOUNTER 2024-05-27 07:41 | Outpatient (AMB) | payer OTHER, SELFPAY ==
--- NOTE | 2024-05-27 07:54 | A.OFFPC_ITS ---
Vital Signs 05/27/24 07:55 Height 5 ft 7 in Weight 172 lb BMI 26.9 BP 90/60 Blood Pressure Location Lt brachial Position Sitting Pulse 72 Pulse Source Pulse Oximeter Pulse Oximetry (%) 98 Oxygen Delivery Method Room Air Intake Visit Reasons: ER f/u Intake Note: Pt is here today for her ER f/u Allergies ibuprofen [IBUPROFEN] Allergy (Intermediate, Verified 05/27/24 08:12) STOMACH UPSET, GI upset Medication List - Last Reconciled 05/27/24 by Rose Shine MD bupropion HCl XL 300 mg PO DAILY bupropion HCl XL 150 mg PO DAILY clobetasol 0.05% 1 appl topical BID 2 weeks clonazepam 0.5 - 1 mg PO DAILY PRN diphenhydramine HCl (Banophen) 50 mg PO BEDTIME olanzapine 15 mg PO BEDTIME omeprazole 40 mg PO DAILY prazosin 2 mg PO BEDTIME risperidone 6 mg PO DAILY venlafaxine ER 150 mg PO DAILY venlafaxine ER 75 mg PO DAILY Tobacco use date assessed: 05/27/24 Dental Screening Dental Screen Date: 01/20/24 HPI ER f/u HPI Details The patient is a 53-year-old female presenting with lower abdominal and pelvic pain. She reports a history of nephrolithiasis, with recent kidney stone diagnosis following a visit to the emergency room on May 17. Past similar pains were less intense than the current episode. The pain, described as severe and debilitating, radiates throughout the lower abdomen and vaginal area, significantly hindering mobility. No interventions for stone removal were performed at the previous facility. An ultrasound was scheduled for the following month. Recent CAT scan revealed multiple non-obstructing calculi in the right kidney, a normal uterus and ovaries, and an under-distended bladder with haziness. Blood in the urine has been persistent, and currently, the pain is constant in the lower back and vaginal region, yet urinary frequency and dysuria are absent. [facility] Medical History (Updated 05/27/24 @ 08:42 by Rose Shine MD) Nephrolithiasis Microhematuria Psoriasis Smoker MAYKEL (obstructive sleep apnea) Anxiety and depression Former smoker, stopped smoking in distant past Multiple lung nodules on CT Upper back pain Cigarette smoker motivated to quit Somnolence Sciatica neuralgia Chronic GERD Excessive daytime sleepiness Witnessed apneic spells Loud snoring Lumbago HSV (herpes simplex virus) infection Anxiety Depression Iron deficiency anemia GERD (gastroesophageal reflux disease) Psoriatic arthritis Vitamin D deficiency Hypercalcemia Hyperparathyroidism Surgical History Hx of myringotomy Hx of tonsillectomy Hx of tubal ligation Family History Father GI disease Mother Type 2 diabetes mellitus Depressed Mental health disorder Paternal Aunt Breast CA Sister Nephrolithiasis Mental health disorder Daughter Substance use disorder Son Substance use disorder Mental health disorder Daughter Mental health disorder Brother Mental health disorder Brother Mental health disorder Brother Mental health disorder Social History Housing: Apartment Patient Tobacco Use Status: Former Tobacco user Cigarette Packs Per Day: 0.5 Cigarettes Per Day: 10 e-Cigarette/Vaping Use: Never Used service: No Current occupational status: unemployed Cognitive needs: No Hearing needs: No Vision needs: Yes Female Reproductive History Menstrual Age of Menarche: 12 Questionnaire Thrive Questionnaire Date Thrive assessed: 01/20/24 I am a: Patient What is your living situation today?: I have a steady place to live Within the past 12 months, did the food you bought not last and you didn't have the money to get more?: Sometimes True Within the past 12 months, did you worry whether your food would run out before you got money to buy more?: Sometimes True Do you have trouble paying for medicines?: No Do you have trouble getting transportation to medical appointments?: No Do you have trouble paying your heating and electricity bill?: No Do you have trouble taking care of your child, family member or friend?: No Do you have trouble with day-to-day activities such as bathing, preparing meals, shopping, managing finances, etc.?: Yes Are you currently unemployed and looking for a job?: I choose not to answer this question Are you interested in more education?: No Currently or been in a relationship where the following occur: No concerns reported THRIVE Score: 2 LYNDSAY-7 AMB Questionnaire LYNDSAY-7 Date LYNDSAY - 7 assessed: 01/20/24 Source: Developed by Drs. Checo Kwong, Swati B.Cleve Corrigan and colleagues, with an educational jeromy from [employer]. Review of Systems Const All systems reviewed & are unremarkable except as noted in HPI and below Physical exam (Primary Care) Vital Signs: Last Vital Signs Pulse 72 05/27/24 07:55 BP 90/60 05/27/24 07:55 Pulse Ox 98 05/27/24 07:55 Oxygen Delivery Method Room Air 05/27/24 07:55 BMI result Body Mass Index 26.9 Tobacco/Smoking Status: Tobacco use Status Tobacco use date assessed 05/27/24 05/27/24 08:00 Patient Tobacco Use Status Former Tobacco user 05/27/24 08:00 e-Cigarette/Vaping Use Never Used 05/27/24 08:00 Thrive Assessment: Date of Thrive Assessment Date Thrive assessed 01/20/24 05/27/24 08:00 Currently or been in a relationship where the following occur: No concerns reported Const Nutritional Appearance: overweight Orientation/consciousness: patient oriented x3 HENMT General nose exam: Normal external nose present Mouth: Normal oral and palatal mucosa present, oropharynx normal and moist mucous membranes Neck Neck: Yes full ROM, Yes no lymphadenopathy and Yes supple Resp Effort & Inspection: normal respiratory effort and able to speak in complete sentences Auscultation: clear to auscultation bilaterally Cardio Rate: regular rate Rhythm: regular rhythm Heart sounds: S1 normal heart sound present and S2 normal heart sound present GI Palpation (GI): Soft to palpation, nontender, no guarding and no masses Auscultation: normal bowel sounds Neuro General: patient oriented x3, gait normal, tone normal, moves all extremities, Normal light touch and pain sensation and no focal motor deficits Results AMB Urinalysis, Automated UA Leukoctes 0 Adamaris/uL Last Edit by Uyen Palacios CMA on 05/27/24 08:14 UA Nitrite Negative Last Edit by Uyen Palacios CMA on 05/27/24 08:14 UA Urobilinogen 0.2 mg/dL Last Edit by Uyen Palacios CMA on 05/27/24 08:14 UA Protein 0 mg/dL Last Edit by Uyen Palacios CMA on 05/27/24 08:14 UA pH 6.0 Last Edit by Uyen Palacios CMA on 05/27/24 08:14 UA Blood 80 David/uL Last Edit by Uyen Palacios CMA on 05/27/24 08:14 UA Specific [place] 1.030 Last Edit by Uyen Palacios CMA on 05/27/24 08:14 UA Ketone Last Edit by Uyen Palacios CMA on 05/27/24 08:14 UA Bilirubin 0 mg/dL Last Edit by Uyen Palacios CMA on 05/27/24 08:14 UA Glucose 0 mg/dL Last Edit by Uyen Palacios CMA on 05/27/24 08:14 Results Reviewed Results Reviewed: Laboratory Last Values Urine pH (Auto) 6.0 05/27/24 08:03 Specific [place] (Auto) 1.030 05/27/24 08:03 Urine Protein (Auto) 0 mg/dL 05/27/24 08:03 Glucose (UA)(Auto) 0 mg/dL 05/27/24 08:03 Urine Blood (Auto) 80 David/uL 05/27/24 08:03 Urine Nitrite (Auto) Negative 05/27/24 08:03 Urine Bilirubin (Auto) 0 mg/dL 05/27/24 08:03 Urine Urobilinogen (Auto) 0.2 mg/dL 05/27/24 08:03 Leukocyte Esterase (Auto) 0 Adamaris/uL 05/27/24 08:03 Coding Level of Care Code Est Pt Level 4 (61227) Diagnoses Chronic suprapubic pain R10.2; G89.29 Abnormal computed tomography of bladder R93.41 Assessment & Plan Assessment & Plan (1) Chronic suprapubic pain: Code(s): R10.2 - Pelvic and perineal pain; G89.29 - Other chronic pain (2) Abnormal computed tomography of bladder: Code(s): R93.41 - Abnormal radiologic findings on diagnostic imaging of renal pelvis, ureter, or bladder Plan - Nephrolithiasis: Continue monitoring as the stones are non-obstructing. No immediate intervention required. - Blood in urine: Initiate antibiotic therapy with Bactrim for possible bladder wall inflammation. Follow up with urinalysis to assess for resolution of hematuria. - Bladder wall inflammation: Start Bactrim for 10 days, reassess symptoms. referred to Urology to further examine bladder anomalies. Patient was informed and verbally consented to the use of an ambient scribe for clinic note documentation during this visit. Orders: Orders AMB Urinalysis Automated 05/27/24 Z13.9 - Encounter for screening, unspecified Referrals Urology Referral G89.29 - Other chronic pain, N20.0 - Calculus of kidney, R10.2 - Pelvic and perineal pain, R31.29 - Other microscopic hematuria, R93.41 - Abnormal radiologic findings on diagnostic imaging of renal pelvis, ureter, or bladder Medications: New sulfamethoxazole-trimethoprim 800-160 mg (Bactrim DS) 1 tab PO Q12H 20 tabs 0RF
[2024-05-27 07:55] VITALS: BP 90/60; PULSE 72; O2SAT 98; BMI 26.9
== END 2024-05-27 08:38 | disposition home or self-care (01) ==
PROVIDERS: PCP Internal Medicine; Visit Provider Internal Medicine
DX: R10.2 Pelvic and perineal pain (principal); G89.29 Other chronic pain; R93.41 Abnormal radiologic findings on diagnostic imaging of renal pelvis, ureter, or bladder

== ENCOUNTER → 2024-05-27 07:41 | Outpatient (BNVA) | payer OTHER, SELFPAY | PROVIDERS: PCP Internal Medicine; Visit Provider Internal Medicine | DX: R10.2 Pelvic and perineal pain (principal); G89.29 Other chronic pain; R93.41 Abnormal radiologic findings on diagnostic imaging of renal pelvis, ureter, or bladder | CPT/HCPCS: 81003; 99212 ==

== ENCOUNTER 2024-06-28 10:51 | Outpatient (REF) | payer OTHER, SELFPAY ==
--- OUTSIDE RECORDS SUMMARY | 2024-06-28 10:54 | XMS_ITS | Clinical Summary ---
Author Organization Unknown Care Team Providers Care Graphics Specialist Name Role Phone ALECIA DELEON, MUKESH LESTER Unavailable Unavaila isael ELLISON RN, TRAE Unavailable Unavailable Payers Payer Name Policy Type Policy Number Effective Date Expira tion Date [facility] ([facility] [id number] MEDICAID [facility] [id number] Problems Condition Name Condition Details Condition Category Status Onset Date Resolution Date Last Treatment Date Treating Clinician Comments MAJOR DEPRESSIVE DISORDER, RECURRENT, UNSPECIFIED Active 2023-07 00:00: 00 Allergies, Adverse Reactions, Alerts Allergy Name Allergy Type Status Severity Reaction(s) Onset Date Inactive Date Treating Clinician Comments NKA Propensity to adverse reactions Active 2024-06 11:23:0 9 Medications Ordered Medication Name Filled Medication Name Start Date Stop Date Current Medication? Ordering Clinician Indication Dosage Frequency Signature (SIG) Comments Components bupropion HCl XL 300 mg 24 hr tablet, extended release 2023-07 00:00: 00 Yes [id number] 300 mg DAILY 300 mg DAILY (route: oral) Med Classific ation: Central Nervous System Agents clonazepam 0.5 mg disintegrat ing tablet 2023-07 00:00: 00 Yes [id number] 0.5 mg 2 TIMES DAILY 0.5 mg 2 TIMES DAILY (route: oral) Med Classific ation: Central Nervous System Agents diphenhydra mine 50 mg capsule 2023-07 00:00: 00 Yes [id number] 50 mg BEDTIME 50 mg BEDTIME (route: oral) Med Classific ation: Respirato ry Therapy Agents olanzapine 15 mg tablet 2023-07 00:00: 00 Yes [id number] 15 mg BEDTIME 15 mg BEDTIME (route: oral) Med Classific ation: Central Nervous System Agents omeprazole 40 mg capsule,del ayed release 2023-07 00:00: 00 Yes [id number] 40 mg DAILY 40 mg DAILY (route: oral) Med Classific ation: Gastroint estinal Therapy Agents prazosin 2 mg capsule 2023-07 00:00: 00 Yes [id number] 2 mg BEDTIME 2 mg BEDTIME (route: oral) Med Classific ation: Cardiovas cular Therapy Agents venlafaxine ER 225 mg tablet,exte nded release 24 hr 2023-07 00:00: 00 Yes [id number] 225 mg DAILY 225 mg DAILY (route: oral) Med Classific ation: Central Nervous System Agents Vital Signs Vital Name Observation Time Observation Value Commen ts Temperature 2024-06-21 22:32:00.000 98 [degF] Temperature 2024-06-18 11:48:00.000 98 [degF] Temperature 2024-06-12 21:10:00.000 98 [degF] BMI (%) 2024-06-12 21:10:00.000 28 kg/m2 Height 2024-06-12 21:10:00.000 64 [in_us] Pulse 2024-06-21 22:32:00.000 77 /min Pulse 2024-06-18 11:48:00.000 79 /min Pulse 2024-06-12 21:10:00.000 80 /min Respirations 2024-06-21 22:32:00.000 14 /min Respirations 2024-06-18 11:48:00.000 14 /min Respirations 2024-06-12 21:10:00.000 14 /min Weight (lbs) 2024-06-12 21:10:00.000 165 [lb_av] Systolic Blood Pressure 2024-06-21 22:32:00.000 122 mm [Hg] Systolic Blood Pressure 2024-06-18 11:48:00.000 121 mm [Hg] Systolic Blood Pressure 2024-06-12 21:10:00.000 135 mm [Hg] Diastolic Blood Pressure 2024-06-21 22:32:00.000 75 mm [Hg] Diastolic Blood Pressure 2024-06-18 11:48:00.000 70 mm [Hg] Diastolic Blood Pressure 2024-06-12 21:10:00.000 83 mm [Hg] Plan of Treatment Planned Activity Planned Date Details Comments Future Scheduled Test SKILLED NU RSE TO EVALUATE PATIENT, IDENTIFY PRIMARY AND CO-MORBID CONDITIONS CODED PER CODING GUIDELINES, AND DEVELOP PATIENT SPECIFIC PLAN OF CARE THAT INCLUDES PATIENT GOAL FOR HOME HEALTH. [code = SKILLED NURSE TO EVALUATE PATIENT, IDENTIFY PRIMARY AND CO-MORBID CONDITIONS CODED PER CODING GUIDELINES, AND DEVELOP PATIENT SPECIFIC PLAN OF CARE THAT INCLUDES PATIENT GOAL FOR HOME HEALTH.] Future Scheduled Test SKILLED NU RSE TO REVIEW PATIENT MEDICATIONS. INSTRUCT PATIENT/CAREGIVER ON MONITORING OF EFFECTIVENESS, ADVERSE DRUG REACTIONS, SIDE EFFECTS OF ALL MEDICATIONS (PRESCRIPTION/-OTC), AND HOW AND WHEN TO REPORT PROBLEMS. [code = SKILLED NURSE TO REVIEW PATIENT MEDICATIONS. INSTRUCT PATIENT/CAREGIVER ON MONITORING OF EFFECTIVENESS, ADVERSE DRUG REACTIONS, SIDE EFFECTS OF ALL MEDICATIONS (PRESCRIPTION/-OTC), AND HOW AND WHEN TO REPORT PROBLEMS.] Future Scheduled Test SKILLED NU RSE TO PRE-POUR MEDICATION PER MEDICATION LIST EVERY SN VISIT [code = SKILLED NURSE TO PRE-POUR MEDICATION PER MEDICATION LIST EVERY SN VISIT] Future Scheduled Test SKILLED NU RSE TO O/A OF PATIENTS MENTAL/BEHAVIORAL STATUS, ASSESS VITAL SIGNS WEEKLY. ALLOW 2 PRNS FOR MEDICATION MANAGEMENT. [code = SKILLED NURSE TO O/A OF PATIENTS MENTAL/BEHAVIORAL STATUS, ASSESS VITAL SIGNS WEEKLY. ALLOW 2 PRNS FOR MEDICATION MANAGEMENT.] Future Scheduled Test SKILLED NU RSE FOR O/A OF PATIENT'S RISK FOR VIOLENCE (TOWARD SELF OR OTHERS) AND TO PROVIDE INTERVENTION TECHNIQUES TO PROMOTE SAFETY TO PATIENT AND OTHERS [code = SKILLED NURSE FOR O/A OF PATIENT'S RISK FOR VIOLENCE (TOWARD SELF OR OTHERS) AND TO PROVIDE INTERVENTION TECHNIQUES TO PROMOTE SAFETY TO PATIENT AND OTHERS] Future Scheduled Test SKILLED NU RSE FOR O/A AND SKILLED TEACHING OF COPING SKILLS TO MANAGE ANXIETY AND MAINTAIN SAFETY. [code = SKILLED NURSE FOR O/A AND SKILLED TEACHING OF COPING SKILLS TO MANAGE ANXIETY AND MAINTAIN SAFETY.] Future Scheduled Test SKILLED NU RSE FOR O/A AND SKILLED TEACHING RELATED TO MANAGEMENT OF DEPRESSIVE SYMPTOMS AND/OR DEPRESSION. SN TO REPORT SIGNIFICANT CHANGE IN DEPRESSIVE SYMPTOMS TO CLINICAL PROVIDER FOR EARLY INTERVENTION. [code = SKILLED NURSE FOR O/A AND SKILLED TEACHING RELATED TO MANAGEMENT OF DEPRESSIVE SYMPTOMS AND/OR DEPRESSION. SN TO REPORT SIGNIFICANT CHANGE IN DEPRESSIVE SYMPTOMS TO CLINICAL PROVIDER FOR EARLY INTERVENTION.] Future Scheduled Test SKILLED NU RSE TO PROVIDE INSTRUCTION TO PATIENT/CAREGIVER RELATED TO DISCHARGE PLANNING. [code = SKILLED NURSE TO PROVIDE INSTRUCTION TO PATIENT/CAREGIVER RELATED TO DISCHARGE PLANNING.] Future Scheduled Test MEDICAL SO CIAL WORKER TO EVALUATE PATIENT FOR COMMUNITY RESOURCES RT HOUSING. [code = PAPER STEAMER TO EVALUATE PATIENT FOR COMMUNITY RESOURCES RT HOUSING. ] Future Scheduled Test SKILLED NU RSE FOR O/A OF CLIENT'S CURRENT DEGREE OF HOPELESSNESS AND PROVIDE THERAPEUTIC INTERVENTIONS AND TEACHING DESIGNED TO ENHANCE THE CLIENT'S WELL BEING. [code = SKILLED NURSE FOR O/A OF CLIENT'S CURRENT DEGREE OF HOPELESSNESS AND PROVIDE THERAPEUTIC INTERVENTIONS AND TEACHING DESIGNED TO ENHANCE THE CLIENT'S WELL BEING.] Future Scheduled Test SKILLED NU RSE TO ASSESS PATIENTS PSYCHOSOCIAL STATUS TO IDENTIFY POTENTIAL ISSUES THAT MAY COMPLICATE THE PROVISION OF THE PLAN OF CARE INCLUDING THE PATIENTS ABILITY TO ACCESS COMMUNITY RESOURCES AND PSYCHOSOCIAL SUPPORT SERVICES. [code = SKILLED NURSE TO ASSESS PATIENTS PSYCHOSOCIAL STATUS TO IDENTIFY POTENTIAL ISSUES THAT MAY COMPLICATE THE PROVISION OF THE PLAN OF CARE INCLUDING THE PATIENTS ABILITY TO ACCESS COMMUNITY RESOURCES AND PSYCHOSOCIAL SUPPORT SERVICES.] Future Scheduled Test SKILLED NU RSE TO ASSESS HIGH RISK PATIENT FOR CHANGE IN CONDITION: MOOD/BEHAVIOR, MISSED MEDICATIONS, CHANGE IN LIVING SITUATION, HOMICIDAL IDEATION, ACTIVE SUBSTANCE USE WITH MOOD ALTERING SUBSTANCES INCLUDING BUT NOT LIMITED TO COCAINE, CRACK, HEROIN, FENTANYL AND ENSURE EARLY IDENTIFICATION TO MAINTAIN SAFETY. SKILLED NURSE WILL MAINTAIN SITUATIONAL AWARENESS FOR SAFETY AND WILL NOTIFY CLINICAL SHAKER REPAIRER AND PHYSICIAN/PROVIDER WITH ANY CHANGE IN CONDITION. [code = SKILLED NURSE TO ASSESS HIGH RISK PATIENT FOR CHANGE IN CONDITION: MOOD/BEHAVIOR, MISSED MEDICATIONS, CHANGE IN LIVING SITUATION, HOMICIDAL IDEATION, ACTIVE SUBSTANCE USE WITH MOOD ALTERING SUBSTANCES INCLUDING BUT NOT LIMITED TO COCAINE, CRACK, HEROIN, FENTANYL AND ENSURE EARLY IDENTIFICATION TO MAINTAIN SAFETY. SKILLED NURSE WILL MAINTAIN SITUATIONAL AWARENESS FOR SAFETY AND WILL NOTIFY CLINICAL SHAKER REPAIRER AND PHYSICIAN/PROVIDER WITH ANY CHANGE IN CONDITION.] Future Scheduled Test SKILLED NU RSE WILL MAINTAIN SITUATIONAL AWARENESS FOR SAFETY AND WILL NOTIFY CLINICAL SHAKER REPAIRER AND PHYSICIAN/PROVIDER WITH ANY CHANGE IN CONDITION. [code = SKILLED NURSE WILL MAINTAIN SITUATIONAL AWARENESS FOR SAFETY AND WILL NOTIFY CLINICAL SHAKER REPAIRER AND PHYSICIAN/PROVIDER WITH ANY CHANGE IN CONDITION.] Future Scheduled Test MEDICAL SO CIAL SERVICES FOR EVALUATION TO ASSESS SOCIAL AND EMOTIONAL FACTORS RELATED TO THE PATIENT'S ILLNESS, NEED FOR CARE, RESPONSE TO TREATMENT AND ADJUSTMENT TO CARE; TO BE FOLLOWED BY COLLABORATION WITH THE PHYSICIAN AND NURSE TO DEVELOP A PLAN OF CARE SUMMARY OF EDGE TRIMMER EVAL/ASSESSMENT FINDINGS AND REASON(S) ASSEMBLY ASSOCIATE IS INDICATED: EDGE TRIMMER EVALUATION: JEAN IS A 53 YEAR OLD FEMALE REFERRED TO [facility] FOLLOWING HOSPITALIZATION FOR SUICIDE ATTEMPT BY INTENTIONAL OVERDOSING ON BENEDRYL AND KL[place]OP[place]. PMH INCLUDES GERD, PSORIASIS, KIDNEY STONES AND INSOMIA. EDGE TRIMMER FACILITATED COMMUNITY RESOURCE ASSESSMENT AND LTC PLANNING ASSESSMENT. ENVIRONMENT: JEAN LIVES IN AN APARTMENT ON THE [address] WITH HER SON. CHERY SON UNABLE TO ASSIST WITH ANY NEEDS. JEAN HAS FAMILY AND HER BOYFRIEND THAT ARE INVOLVED AND SUPPORTIVE. JEAN REPORTS SHES BEEN HAVING TROUBLE WITH CLEANING, LAUNDRY AND GROCERY SHOPPING. JEAN HAS SECTION 8 AND HAS NO PROBLEMS WITH PAYING BILLS CURRENTLY. PRESENTATION: JEAN IS ALERT AND ORIENTED X4. JEAN PRESENTED VERY ANXIOUS AND DEPRESSED DURING VISIT. EDGE TRIMMER PROVIDED THERAPEUTIC SUPPORT. NO CURRENT SI/HI. SHE REPORTS SHE JUST BEEN DEALING WITH ALSO BUT HAVING HER COUSIN AND BOYFRIEND WITH HER AT HOME HAS BEEN HELPING. JEAN HAS A PSYCHOTHERAPIST AND PSYCHIATRIST THROUGH [facility] IN [place]. EDGE TRIMMER PROVIDED CRISIS INFORMATION IF NEEDED. INTERVENTION: SINCE CHERY DEPRESSION HAS BEEN EFFECTING HER DAILY TASK EDGE TRIMMER RECOMMENDED A DMH APPLICATION MAY BE APPROPRIATE FOR ADDITIONAL SUPPORT. EDGE TRIMMER PLANS TO FOLLOW UP 1 X TO COMPLETE DMH APPLICATION ON NEXT VISIT. MEDICAL MEDICAL DATA ENTRY CLERK FOR COMMUNITY RESOURCE PLANNING. [code = MEDICAL MEDICAL DATA ENTRY CLERK FOR EVALUATION TO ASSESS SOCIAL AND EMOTIONAL FACTORS RELATED TO THE PATIENT'S ILLNESS, NEED FOR CARE, RESPONSE TO TREATMENT AND ADJUSTMENT TO CARE; TO BE FOLLOWED BY COLLABORATION WITH THE PHYSICIAN AND NURSE TO DEVELOP A PLAN OF CARE SUMMARY OF EDGE TRIMMER EVAL/ASSESSMENT FINDINGS AND REASON(S) ASSEMBLY ASSOCIATE IS INDICATED: EDGE TRIMMER EVALUATION: JEAN IS A 53 YEAR OLD FEMALE REFERRED TO [facility] FOLLOWING HOSPITALIZATION FOR SUICIDE ATTEMPT BY INTENTIONAL OVERDOSING ON BENEDRYL AND KL[place]OPIN. PMH INCLUDES GERD, PSORIASIS, KIDNEY STONES AND INSOMIA. EDGE TRIMMER FACILITATED COMMUNITY RESOURCE ASSESSMENT AND LTC PLANNING ASSESSMENT. ENVIRONMENT: JEAN LIVES IN AN APARTMENT ON THE [address] WITH HER SON. [place]OL[place]OLS SON UNABLE TO ASSIST WITH ANY NEEDS. JEAN HAS FAMILY AND HER BOYFRIEND THAT ARE INVOLVED AND SUPPORTIVE. JEAN REPORTS SHES BEEN HAVING TROUBLE WITH CLEANING, LAUNDRY AND GROCERY SHOPPING. JEAN HAS SECTION 8 AND HAS NO PROBLEMS WITH PAYING BILLS CURRENTLY. PRESENTATION: JEAN IS ALERT AND ORIENTED X4. JEAN PRESENTED VERY ANXIOUS AND DEPRESSED DURING VISIT. EDGE TRIMMER PROVIDED THERAPEUTIC SUPPORT. NO CURRENT SI/HI. SHE REPORTS SHE JUST BEEN DEALING WITH ALSO BUT HAVING HER COUSIN AND BOYFRIEND WITH HER AT HOME HAS BEEN HELPING. JEAN HAS A PSYCHOTHERAPIST AND PSYCHIATRIST THROUGH [facility] IN [place]. EDGE TRIMMER PROVIDED CRISIS INFORMATION IF NEEDED. INTERVENTION: SINCE CHERY DEPRESSION HAS BEEN EFFECTING HER DAILY TASK EDGE TRIMMER RECOMMENDED A DMH APPLICATION MAY BE APPROPRIATE FOR ADDITIONAL SUPPORT. EDGE TRIMMER PLANS TO FOLLOW UP 1 X TO COMPLETE DMH APPLICATION ON NEXT VISIT. MEDICAL MEDICAL DATA ENTRY CLERK FOR COMMUNITY RESOURCE PLANNING.] Goal Patient Goal - L EARN HOW TO TAKE MEDS RIGHT. Goal Provider Goal - A PLAN OF CARE WILL BE ESTABLISHED THAT MEETS PATIENT'S LONG-TERM NEEDS AND INCLUDES PATIENT GOAL FOR HOME HEALTH. Goal Provider Goal - PATIENT/CAREGIVER WILL VERBALIZE UNDERSTANDING OF EDUCATION PROVIDED ON MEDICATIONS BY THE END OF THE CERTIFICATION PERIOD. Goal Provider Goal - PATIENT WILL COMPLY WITH MEDICATION WHEN SKILLED NURSE PRE-POURS MEDICATION THROUGHOUT CERTIFICATION PERIOD. Goal Provider Goal - ALTERED MENTAL/BEHAVIORAL STATUS WILL BE IDENTIFIED PROMPTLY AND INTERVENTION INITIATED QUICKLY TO MINIMIZE ASSOCIATED RISKS THROUGHOUT CERTIFICATION PERIOD. Goal Provider Goal - PATIENT WILL REMAIN SAFE IN COMMUNITY WITHOUT EVIDENCE OF INJURY/HARM TO SELF OR OTHERS THROUGHOUT CERTIFICATION PERIOD. Goal Provider Goal - PATIENT WILL BE ABLE TO PERFORM DAILY FUNCTIONS AND HAVE OPTIMAL IMPROVEMENT IN LEVEL OF ANXIETY THROUGHOUT CERTIFICATION PERIOD. Goal Provider Goal - PATIENT WILL REMAIN SAFE WITHOUT DECOMPENSATION IN DEPRESSIVE CONDITION, WHILE MAINTAINING OPTIMAL LEVEL OF MENTAL HEALTH AND WELL BEING THROUGHOUT CERTIFICATION PERIOD. Goal Provider Goal - PATIENT/CAREGIVER WILL VERBALIZE UNDERSTANDING OF DISCHARGE PLANNING INSTRUCTIONS BY DATE OF DISCHARGE. Goal Provider Goal - PAPER STEAMER TO COMPLETE EVALUATION TO ADDRESS THE PATIENTS SOCIAL AND EMOTIONAL FACTORS AND/OR WRITTEN PLAN OF TREATMENT ESTABLISHED FOR THE PHYSICIAN'S SIGNATURE. Goal Provider Goal - PATIENT WILL VERBALIZE OWN ASSOCIATION OF FEELINGS OF HOPELESSNESS, AND 3 THERAPEUTIC TECHNIQUES TO DECREASE THESE FEELINGS BY THE END OF THIS CERTIFICATION. Goal Provider Goal - PSYCHOSOCIAL NEEDS WILL BE IDENTIFIED AND PLAN IMPLEMENTED TO MINIMIZE RISK THROUGHOUT CERTIFICATION PERIOD. Goal Provider Goal - HIGH RISK PATIENT WILL REMAIN SAFE IN THE COMMUNITY AND WILL BE FREE FROM DANGER TO SELF AND OTHERS THROUGHOUT CERTIFICATION PERIOD. Goal Provider Goal - PATIENT WILL REMAIN SAFE IN THE COMMUNITY AND WILL BE FREE OF DANGER TO SELF AND OTHERS THROUGHOUT THE CERTIFICATION PERIOD. Goal Provider Goal - A MEDICAL MEDICAL DATA ENTRY CLERK CONSULT PRN WILL BE COMPLETED FOR THE ENHANCEMENT OF THE PATIENT'S SOCIAL AND EMOTIONAL FACTORS, NEED FOR CARE, RESPONSE TO TREATMENT AND ADJUSTMENT TO CARE, TO FOSTER INDEPENDENT LIVING AT HOME USING COMMUNITY RESOURCES, INCREASED FAMILY INVOLVEMENT OR BOTH WITHIN 2 WEEKS. PATIENT/CAREGIVER WILL VERBALIZE/DEMONSTRATE EFFECTIVE COMMUNITY RESOURCE PLANNING, EVIDENCED BY ACCEPTANCE OF ASSISTANCE FROM THOSE SERVICES FOR WHICH THEY ARE ELIGIBLE, EXTENDING THE PERIOD OF INDEPENDENCE IN THE HOME. Progress Notes Progress Notes <paragraph>[Visit Date: 2023 by HONORIO JIANG]:</paragraph><paragraph>EDGE TRIMMER REVISIT: EDGE TRIMMER MET WITH JEAN TODAY FOR FOLLOW UP AND REASSESSMENT OF NEEDS. ENVIRONMENT IS UNCHANGED SINCE LAST VISIT. JEAN REPORTS STILL FEELING DEPRESSED BUT NO SI/HI. EDGE TRIMMER COMPLETED DMH APPLICATION DURING VISIT TODAY. EDGE TRIMMER WILL FAX APPLICATION FOLLOWING VISIT. JEAN DOES NOT NEED ANY FURTHER ASSISTANCE FROM EDGE TRIMMER AT THIS TIME. EDGE TRIMMER PROVIDED CLOSURE BY RESTATING RESOURCES AVAILABLE IN THE COMMUNITY AND ENCOURAGED HER TO CONTACT EDGE TRIMMER IF THERE WAS ANYTHING ELSE THE EDGE TRIMMER COULD ASSIST WITH.</paragraph> Encounters Start Date/Time End Date/Time Encounter Type Admission Type Attending [facility] Care Department Encounter ID Discharge Date Discharge Status Discharge Condition Discharge Reason Percent Goals Met 2024-06-11 00:00:00 2024-08-09 00:00:00 Outpatient NEW ADMISSION BERENICEElías TRAE [facility] [id number] 36.11
== END 2024-06-28 10:52 | disposition home or self-care (01) ==
LOC: HO.US 10:51
PROVIDERS: PCP Internal Medicine; Visit Provider Advanced Practice Midwife
DX: R10.2 Pelvic and perineal pain (principal)
CPT/HCPCS: 76830; 76856

== ENCOUNTER 2024-07-21 12:49 | Outpatient (REF) | payer OTHER, SELFPAY ==
--- OUTSIDE RECORDS SUMMARY | 2024-07-21 15:52 | XMS_ITS | Clinical Summary ---
Author Organization Unknown Care Team Providers Care American History Professor Name Role Phone ALECIA DELEON, MUKESH LESTER Unavailable Unavaila isael ELLISON RN, TRAE Unavailable Unavailable Payers Payer Name Policy Type Policy Number Effective Date Expira tion Date [facility] ([facility] [id number] MEDICAID [facility] [id number] Problems Condition Name Condition Details Condition Category [...] tablet, extended release 2023-07 00:00: 00 Yes [id number] 300 mg DAILY 300 mg DAILY (route: oral) Med Classific ation: Central Nervous System Agents clonazepam 0.5 mg disintegrat ing tablet 2023-07 00:00: 00 Yes [id number] 0.5 mg 2 TIMES DAILY 0.5 mg 2 TIMES DAILY (route: oral) Med Classific ation: Central Nervous System Agents diphenhydra mine 50 mg capsule 2023-07 00:00: 00 Yes [id number] 50 mg BEDTIME 50 mg BEDTIME (route: oral) Med Classific ation: Respirato ry Therapy Agents olanzapine 15 mg tablet 2023-07 00:00: 00 Yes [id number] 15 mg BEDTIME 15 mg BEDTIME (route: oral) Med Classific ation: Central Nervous System Agents omeprazole 40 mg capsule,del ayed release 2023-07 00:00: 00 Yes [id number] 40 mg DAILY 40 mg DAILY (route: oral) Med Classific ation: Gastroint estinal Therapy Agents prazosin 2 mg capsule 2023-07 00:00: 00 Yes [id number] 2 mg BEDTIME 2 mg BEDTIME (route: oral) Med Classific ation: Cardiovas cular Therapy Agents venlafaxine ER 225 mg tablet,exte nded release 24 hr 2023-07 00:00: 00 Yes [id number] 225 mg DAILY 225 mg DAILY (route: [...] FOR COMMUNITY RESOURCES RT HOUSING. [code = DOOR OPENER TO EVALUATE PATIENT FOR COMMUNITY RESOURCES RT [...] AWARENESS FOR SAFETY AND WILL NOTIFY CLINICAL NET SORTER AND PHYSICIAN/PROVIDER WITH ANY CHANGE IN CONDITION. [...] AWARENESS FOR SAFETY AND WILL NOTIFY CLINICAL NET SORTER AND PHYSICIAN/PROVIDER WITH ANY CHANGE IN CONDITION.] Future Scheduled Test SKILLED NU RSE WILL MAINTAIN SITUATIONAL AWARENESS FOR SAFETY AND WILL NOTIFY CLINICAL NET SORTER AND PHYSICIAN/PROVIDER WITH ANY CHANGE IN CONDITION. [code = SKILLED NURSE WILL MAINTAIN SITUATIONAL AWARENESS FOR SAFETY AND WILL NOTIFY CLINICAL NET SORTER AND PHYSICIAN/PROVIDER WITH ANY CHANGE IN CONDITION.] Future Scheduled Test MEDICAL SO CIAL SERVICES FOR EVALUATION TO ASSESS SOCIAL AND EMOTIONAL FACTORS RELATED TO THE PATIENT'S ILLNESS, NEED FOR CARE, RESPONSE TO TREATMENT AND ADJUSTMENT TO CARE; TO BE FOLLOWED BY COLLABORATION WITH THE PHYSICIAN AND NURSE TO DEVELOP A PLAN OF CARE SUMMARY OF RETIREMENT PLAN SPECIALIST EVAL/ASSESSMENT FINDINGS AND REASON(S) CARTON MARKER MACHINE IS INDICATED: RETIREMENT PLAN SPECIALIST EVALUATION: JEAN IS A 53 YEAR OLD FEMALE RE[facility]ERRED [facility] FOLLOWING HOSPITALIZATION FOR SUICIDE ATTEMPT BY INTENTIONAL OVERDOSING ON BENEDRYL AND [place]. PMH INCLUDES GERD, PSORIASIS, KIDNEY STONES AND INSOMIA. RETIREMENT PLAN SPECIALIST FACILITATED COMMUNITY RESOURCE ASSESSMENT AND LTC PLANNING [...] PRESENTED VERY ANXIOUS AND DEPRESSED DURING VISIT. RETIREMENT PLAN SPECIALIST PROVIDED THERAPEUTIC SUPPORT. NO CURRENT SI/HI. SHE REPORTS SHE JUST BEEN DEALING WITH ALSO BUT HAVING HER COUSIN AND BOYFRIEND WITH HER AT HOME HAS BEEN HELPING. JEAN HAS A PSYCHOTHERAPIST AND PSYCHIATRIST THROUGH [facility] IN [place]. RETIREMENT PLAN SPECIALIST PROVIDED CRISIS INFORMATION IF NEEDED. INTERVENTION: SINCE CHERY DEPRESSION HAS BEEN EFFECTING HER DAILY TASK RETIREMENT PLAN SPECIALIST RECOMMENDED A [facility] APPLICATION MAY BE APPROPRIATE FOR ADDITIONAL SUPPORT. RETIREMENT PLAN SPECIALIST PLANS TO FOLLOW UP 1 X TO COMPLETE [facility] APPLICATION ON NEXT VISIT. MEDICAL FOOD SCIENCE PROFESSOR FOR COMMUNITY RESOURCE PLANNING. [code = MEDICAL FOOD SCIENCE PROFESSOR FOR EVALUATION TO ASSESS SOCIAL AND EMOTIONAL FACTORS RELATED TO THE PATIENT'S ILLNESS, NEED FOR CARE, RESPONSE TO TREATMENT AND ADJUSTMENT TO CARE; TO BE FOLLOWED BY COLLABORATION WITH THE PHYSICIAN AND NURSE TO DEVELOP A PLAN OF CARE SUMMARY OF RETIREMENT PLAN SPECIALIST EVAL/ASSESSMENT FINDINGS AND REASON(S) CARTON MARKER MACHINE IS INDICATED: RETIREMENT PLAN SPECIALIST EVALUATION: JEAN IS A 53 YEAR OLD FEMALE [facility] FOLLOWING HOSPITALIZATION FOR SUICIDE ATTEMPT BY INTENTIONAL OVERDOSING ON BENEDRYL AND [place]. PMH INCLUDES GERD, PSORIASIS, KIDNEY STONES AND INSOMIA. RETIREMENT PLAN SPECIALIST FACILITATED COMMUNITY RESOURCE ASSESSMENT AND LTC PLANNING [...] PRESENTED VERY ANXIOUS AND DEPRESSED DURING VISIT. RETIREMENT PLAN SPECIALIST PROVIDED THERAPEUTIC SUPPORT. NO CURRENT SI/HI. SHE REPORTS SHE JUST BEEN DEALING WITH ALSO BUT HAVING HER COUSIN AND BOYFRIEND WITH HER AT HOME HAS BEEN HELPING. JEAN HAS A PSYCHOTHERAPIST AND PSYCHIATRIST THROUGH [facility] IN [place]. RETIREMENT PLAN SPECIALIST PROVIDED CRISIS INFORMATION IF NEEDED. INTERVENTION: SINCE CHERY DEPRESSION HAS BEEN EFFECTING HER DAILY TASK RETIREMENT PLAN SPECIALIST RECOMMENDED A [facility] APPLICATION MAY BE APPROPRIATE FOR ADDITIONAL SUPPORT. RETIREMENT PLAN SPECIALIST PLANS TO FOLLOW UP 1 X TO COMPLETE [facility] APPLICATION ON NEXT VISIT. MEDICAL FOOD SCIENCE PROFESSOR FOR COMMUNITY RESOURCE PLANNING.] Goal Patient Goal - L EARN HOW TO TAKE MEDS RIGHT. Goal Provider Goal - A PLAN OF CARE WILL BE ESTABLISHED THAT MEETS PATIENT'S HALF-WAY NEEDS AND INCLUDES PATIENT GOAL FOR HOME [...] DATE OF DISCHARGE. Goal Provider Goal - DOOR OPENER TO COMPLETE EVALUATION TO ADDRESS THE PATIENTS [...] PERIOD. Goal Provider Goal - A MEDICAL FOOD SCIENCE PROFESSOR CONSULT PRN WILL BE COMPLETED FOR THE [...] End Date/Time Encounter Type Admission Type Attending [facility] Facility Care Department Encounter ID Discharge Date Discharge Status Discharge Condition Discharge Reason Percent Goals Met 2024-06-11 00:00:00 2024-08-09 00:00:00 Outpatient NEW ADMISSION TRAE ELLISON [facility] [id number] 19.44
--- OUTSIDE RECORDS SUMMARY | 2024-07-21 15:52 | XMS_ITS | Clinical Summary ---
Author Organization Unknown Care Team Providers Care Risk And Compliance Analytics Director Name Role Phone ALECIA DELEON, MUKESH LESTER Unavailable Unavaila isael ELLISON RN, TRAE Unavailable Unavailable Payers Payer Name Policy Type Policy Number Effective Date Expira tion Date [facility] [place] [id number] MEDICAID [facility] [id number] Problems Condition Name Condition Details Condition Category [...] tablet, extended release 2023-07 00:00: 00 Yes [id number] 300 mg DAILY 300 mg DAILY (route: oral) Med Classific ation: Central Nervous System Agents clonazepam 0.5 mg disintegrat ing tablet 2023-07 00:00: 00 Yes [id number] 0.5 mg 2 TIMES DAILY 0.5 mg 2 TIMES DAILY (route: oral) Med Classific ation: Central Nervous System Agents diphenhydra mine 50 mg capsule 2023-07 00:00: 00 Yes [id number] 50 mg BEDTIME 50 mg BEDTIME (route: oral) Med Classific ation: Respirato ry Therapy Agents olanzapine 15 mg tablet 2023-07 00:00: 00 Yes [id number] 15 mg BEDTIME 15 mg BEDTIME (route: oral) Med Classific ation: Central Nervous System Agents omeprazole 40 mg capsule,del ayed release 2023-07 00:00: 00 Yes [id number] 40 mg DAILY 40 mg DAILY (route: oral) Med Classific ation: Gastroint estinal Therapy Agents prazosin 2 mg capsule 2023-07 00:00: 00 Yes [id number] 2 mg BEDTIME 2 mg BEDTIME (route: oral) Med Classific ation: Cardiovas cular Therapy Agents venlafaxine ER 225 mg tablet,exte nded release 24 hr 2023-07 00:00: 00 Yes [id number] 225 mg DAILY 225 mg DAILY (route: [...] FOR COMMUNITY RESOURCES RT HOUSING. [code = INSULATION SUPERVISOR TO EVALUATE PATIENT FOR COMMUNITY RESOURCES RT [...] AWARENESS FOR SAFETY AND WILL NOTIFY CLINICAL IMPROVEMENT COORDINATOR AND PHYSICIAN/PROVIDER WITH ANY CHANGE IN CONDITION. [...] AWARENESS FOR SAFETY AND WILL NOTIFY CLINICAL IMPROVEMENT COORDINATOR AND PHYSICIAN/PROVIDER WITH ANY CHANGE IN CONDITION.] Future Scheduled Test SKILLED NU RSE WILL MAINTAIN SITUATIONAL AWARENESS FOR SAFETY AND WILL NOTIFY CLINICAL IMPROVEMENT COORDINATOR AND PHYSICIAN/PROVIDER WITH ANY CHANGE IN CONDITION. [code = SKILLED NURSE WILL MAINTAIN SITUATIONAL AWARENESS FOR SAFETY AND WILL NOTIFY CLINICAL IMPROVEMENT COORDINATOR AND PHYSICIAN/PROVIDER WITH ANY CHANGE IN CONDITION.] Future Scheduled Test MEDICAL SO CIAL SERVICES FOR EVALUATION TO ASSESS SOCIAL AND EMOTIONAL FACTORS RELATED TO THE PATIENT'S ILLNESS, NEED FOR CARE, RESPONSE TO TREATMENT AND ADJUSTMENT TO CARE; TO BE FOLLOWED BY COLLABORATION WITH THE PHYSICIAN AND NURSE TO DEVELOP A PLAN OF CARE SUMMARY OF DRAWING BOX TENDER EVAL/ASSESSMENT FINDINGS AND REASON(S) FIBERGLASS SKI MAKER IS INDICATED: DRAWING BOX TENDER EVALUATION: JEAN IS A 53 YEAR OLD FEMALE RE[facility]ERRED [facility]LLOWING H[facility]PITALIZATION FOR SUICIDE ATTEMPT BY INTENTIONAL OVERDOSING ON BENEDRYL AND [place]. PMH INCLUDES GERD, PSORIASIS, KIDNEY STONES AND INSOMIA. DRAWING BOX TENDER FACILITATED COMMUNITY RESOURCE ASSESSMENT AND LTC PLANNING [...] PRESENTED VERY ANXIOUS AND DEPRESSED DURING VISIT. DRAWING BOX TENDER PROVIDED THERAPEUTIC SUPPORT. NO CURRENT SI/HI. SHE REPORTS SHE JUST BEEN DEALING WITH ALSO BUT HAVING HER COUSIN AND BOYFRIEND WITH HER AT HOME HAS BEEN HELPING. JEAN HAS A PSYCHOTHERAPIST AND PSYCHIATRIST THROUGH [facility] IN [place]. DRAWING BOX TENDER PROVIDED CRISIS INFORMATION IF NEEDED. INTERVENTION: SINCE CHERY DEPRESSION HAS BEEN EFFECTING HER DAILY TASK DRAWING BOX TENDER RECOMMENDED A DMH APPLICATION MAY BE APPROPRIATE FOR ADDITIONAL SUPPORT. DRAWING BOX TENDER PLANS TO FOLLOW UP 1 X TO COMPLETE DMH APPLICATION ON NEXT VISIT. MEDICAL POLEYARD SUPERVISOR FOR COMMUNITY RESOURCE PLANNING. [code = MEDICAL POLEYARD SUPERVISOR FOR EVALUATION TO ASSESS SOCIAL AND EMOTIONAL FACTORS RELATED TO THE PATIENT'S ILLNESS, NEED FOR CARE, RESPONSE TO TREATMENT AND ADJUSTMENT TO CARE; TO BE FOLLOWED BY COLLABORATION WITH THE PHYSICIAN AND NURSE TO DEVELOP A PLAN OF CARE SUMMARY OF DRAWING BOX TENDER EVAL/ASSESSMENT FINDINGS AND REASON(S) FIBERGLASS SKI MAKER IS INDICATED: DRAWING BOX TENDER EVALUATION: JEAN IS A 53 YEAR OLD FEMALE [facility] FOLLOWING HOSPITALIZATION FOR SUICIDE ATTEMPT BY INTENTIONAL OVERDOSING ON BENEDRYL AND [place]. PMH INCLUDES GERD, PSORIASIS, KIDNEY STONES AND INSOMIA. DRAWING BOX TENDER FACILITATED COMMUNITY RESOURCE ASSESSMENT AND LTC PLANNING [...] PRESENTED VERY ANXIOUS AND DEPRESSED DURING VISIT. DRAWING BOX TENDER PROVIDED THERAPEUTIC SUPPORT. NO CURRENT SI/HI. SHE REPORTS SHE JUST BEEN DEALING WITH ALSO BUT HAVING HER COUSIN AND BOYFRIEND WITH HER AT HOME HAS BEEN HELPING. JEAN HAS A PSYCHOTHERAPIST AND PSYCHIATRIST THROUGH [facility] IN [place]. DRAWING BOX TENDER PROVIDED CRISIS INFORMATION IF NEEDED. INTERVENTION: SINCE CHERY DEPRESSION HAS BEEN EFFECTING HER DAILY TASK DRAWING BOX TENDER RECOMMENDED A DMH APPLICATION MAY BE APPROPRIATE FOR ADDITIONAL SUPPORT. DRAWING BOX TENDER PLANS TO FOLLOW UP 1 X TO COMPLETE DMH APPLICATION ON NEXT VISIT. MEDICAL POLEYARD SUPERVISOR FOR COMMUNITY RESOURCE PLANNING.] Goal Patient Goal [...] DATE OF DISCHARGE. Goal Provider Goal - INSULATION SUPERVISOR TO COMPLETE EVALUATION TO ADDRESS THE PATIENTS [...] PERIOD. Goal Provider Goal - A MEDICAL POLEYARD SUPERVISOR CONSULT PRN WILL BE COMPLETED FOR THE [...] End Date/Time Encounter Type Admission Type Attending [facility] Facility Care Department Encounter ID Discharge Date Discharge Status Discharge Condition Discharge Reason Percent Goals Met 2024-06-11 00:00:00 2024-08-09 00:00:00 Outpatient NEW ADMISSION TRAE ELLISON [facility] [id number] 19.44
[2024-07-21 17:08] LABS: Urine Cytology See Pathology rpt
== END 2024-07-21 12:50 | disposition home or self-care (01) ==
LOC: HO.LAB 12:49
PROVIDERS: PCP Internal Medicine; Visit Provider Nurse Practitioner Family
DX: R31.29 Other microscopic hematuria (principal); F17.200 Nicotine dependence, unspecified, uncomplicated; N20.0 Calculus of kidney; N39.46 Mixed incontinence
CPT/HCPCS: 81003; 88112; 99202

== ENCOUNTER 2024-07-21 12:49 | Outpatient (AMB) | payer OTHER, SELFPAY ==
--- NOTE | 2024-07-21 13:03 | A.OFFVIS_ITS ---
Intake Visit Reasons: microscopic hematuria/ rahul pain Intake Note: New patient Presents for Microscopic Hematuria/Flank Pain Any Urology Medication: None Antibiotic Allergies:None Blood Thinners: None Matlab Developer Required: No Accompanied by: Self / Same As Patient Allergies ibuprofen [IBUPROFEN] Allergy (Intermediate, Verified 07/21/24 13:28) STOMACH UPSET, GI upset Medication List - Last Reconciled 07/21/24 by ALFREDA SmithP- bupropion HCl XL 300 mg PO DAILY bupropion HCl XL 150 mg PO DAILY clobetasol 0.05% 1 appl topical BID 2 weeks clonazepam 0.5 - 1 mg PO DAILY PRN diphenhydramine HCl (Banophen) 50 mg PO BEDTIME olanzapine 15 mg PO BEDTIME omeprazole 40 mg PO DAILY prazosin 2 mg PO BEDTIME risperidone 6 mg PO DAILY venlafaxine ER 150 mg PO DAILY venlafaxine ER 75 mg PO DAILY HPI Comments Details: Eda is a pleasant 53-year-old female patient of . She has a past medical history of nephrolithiasis, psoriasis, nicotine dependence, obstructive sleep apnea, anxiety, depression, somnolence, sciatic neuralgia, chronic GERD, lumbago, vitamin-D deficiency, hypercalcemia, and hair hyperparathyroidism. She presents to the office today as a new patient for nephrolithiasis and microscopic hematuria in the setting of nicotine dependence. In discussion with the patient today she reports having previously followed up with a urologist in [facility] many years ago and underwent an office cystoscopy with bladder biopsy however is unsure as to diagnosis or why she had this performed. She reports having followed up at [facility] late last year for lower back pain she had been experiencing at which time a CT KUB was ordered for further assessment evaluation. In review of patient's chart these results were reviewed CT without contrast noted bilateral kidneys with no hydronephrosis right kidney with nonobstructing stones however sizing of calculi was not documented. In office urinalysis results reviewed with the patient today 3+ microscopic hematuria. She reports a longstanding history of nephrolithiasis however never requiring surgical intervention. When asked she does report episodes of urge/stress incontinence and bladder pressure. She otherwise denies dysuria, foul smelling urine, changes to urinary stream, fever, and or chills. She does continue to report bilateral lower back pain. No CVA tenderness noted bilaterally on exam today. We discussed at length potential causes of microscopic hematuria. We discussed further workup to include imaging with contrast as well as in office cystoscopy for further assessment evaluation. Patient reports she has smoked on and off for over 35 years. She most recently quit this past summer. She discusses her family history of renal disease. She also discusses her parents being first cousins. She otherwise offers no other issues or concerns at this time. [facility] Medical History Nephrolithiasis Microhematuria Psoriasis Smoker MAYKEL (obstructive sleep apnea) Anxiety and depression Former smoker, stopped smoking in distant past Multiple lung nodules on CT Upper back pain Cigarette smoker motivated to quit Somnolence Sciatica neuralgia Chronic GERD Excessive daytime sleepiness Witnessed apneic spells Loud snoring Lumbago HSV (herpes simplex virus) infection Anxiety Depression Iron deficiency anemia GERD (gastroesophageal reflux disease) Psoriatic arthritis Vitamin D deficiency Hypercalcemia Hyperparathyroidism Surgical History Hx of myringotomy Hx of tonsillectomy Hx of tubal ligation Family History Father GI disease Mother Type 2 diabetes mellitus Depressed Mental health disorder Paternal Aunt Breast CA Sister Nephrolithiasis Mental health disorder Daughter Substance use disorder Son Substance use disorder Mental health disorder Daughter Mental health disorder Brother Mental health disorder Brother Mental health disorder Brother Mental health disorder Social History Housing: Apartment Patient Tobacco Use Status: Former Tobacco user Cigarette Packs Per Day: 0.5 Cigarettes Per Day: 10 e-Cigarette/Vaping Use: Never Used service: No Current occupational status: unemployed Cognitive needs: No Hearing needs: No Vision needs: Yes Female Reproductive History Menstrual Age of Menarche: 12 Review of Systems Const All systems reviewed & are unremarkable except as noted in HPI and below Physical Exam Const General: cooperative, healthy appearing, comfortable, no acute distress, well developed, alert and awake Orientation/consciousness: patient oriented x3 Limitations: no limitations HEENT Head: Yes normal to inspection, Yes normocephalic and Yes atraumatic Ears: hearing grossly normal bilaterally Eyes General: appearance normal, both eyes and all related structures Neck Neck: Yes normal visual inspection and Yes trachea midline Chest Chest palpation & inspection: normal inspection of the chest Resp Effort & Inspection: normal respiratory effort and able to speak in complete sentences Cardio Rate: regular rate GI Inspection: Yes normal to inspection General: Yes no CVA tenderness Back/Spine/Pelvis Back: no CVA tenderness Skin General skin exam: no rashes or lesions noted Neuro General: patient oriented x3 Extrem General: Yes normal to inspection Psych Appearance: grossly normal and well kempt Mental Status: mental status grossly normal Speech and movement: Normal speech and movement present and Clear speech present Affect: normal affect Attitude: cooperative Thought process: Normal thought process present Thought content: Normal thought content present Insight: Fair insight present (Psych) Judgement: Fair judgement present (Psych) Results AMB Urinalysis, Automated UA Leukoctes 0 Adamaris/uL Last Edit by Marialuisa Lara [facility] on 07/21/24 13:16 UA Nitrite Negative Last Edit by Marialuisa Lara [facility] on 07/21/24 13:16 UA Urobilinogen 0.2 mg/dL Last Edit by Marialuisa Lara [facility] on 07/21/24 13:1 6 UA Protein 0 mg/dL Last Edit by Marialuisa Lara [facility] on 07/21/24 13:16 UA pH 6.0 Last Edit by Marialuisa Lara [facility] on 07/21/24 13:16 UA Blood 200 David/uL Last Edit by Marialuisa Lara [facility] on 07/21/24 13:16 UA Specific [place] 1.020 Last Edit by Marialuisa Lara [facility] on 07/21/24 13: 16 UA Ketone Negative Last Edit by Marialuisa Lara [facility] on 07/21/24 13:16 UA Bilirubin 0 mg/dL Last Edit by Marialuisa Lara [facility] on 07/21/24 13:16 UA Glucose 0 mg/dL Last Edit by Marialuisa Lara [facility] on 07/21/24 13:16 Results Reviewed Results Reviewed: Laboratory Last Values Urine pH (Auto) 6.0 07/21/24 13:10 Specific [place] (Auto) 1.020 07/21/24 13:10 Urine Protein (Auto) 0 mg/dL 07/21/24 13:10 Glucose (UA)(Auto) 0 mg/dL 07/21/24 13:10 Urine Ketones (Auto) Negative 07/21/24 13:10 Urine Blood (Auto) 200 David/uL 07/21/24 13:10 Urine Nitrite (Auto) Negative 07/21/24 13:10 Urine Bilirubin (Auto) 0 mg/dL 07/21/24 13:10 Urine Urobilinogen (Auto) 0.2 mg/dL 07/21/24 13:10 Leukocyte Esterase (Auto) 0 Adamaris/uL 07/21/24 13:10 Assessment & Plan Assessment & Plan (1) Smoker: Comment: PATIENT HAD QUIT SMOKING AT 1 TIME BUT THEN RESTARTED SMOKING AND NOW DOWN TO 5- 6 CIGARETTES A DAY. TX : COUNSELED THAT SHE MUST QUIT COMPLETELY. CONTINUE USING NICOTINE PATCH 14 MG DAILY Code(s): F17.200 - Nicotine dependence, unspecified, uncomplicated Category: Social Hx (2) Microhematuria: Code(s): R31.29 - Other microscopic hematuria Category: Medical (3) Nephrolithiasis: Code(s): N20.0 - Calculus of kidney Category: Medical (4) Mixed incontinence urge and stress: Code(s): N39.46 - Mixed incontinence Category: Medical Plan In office urinalysis results reviewed with the patient today; as noted above; will send for urine cytology. We discussed and stressed the importance of adequate hydration in relation to nephrolithiasis as well as lower urinary tract symptoms. Will obtain CT urogram for further assessment evaluation. BUN and creatinine ordered for imaging. Discussed potential causes of microscopic hematuria. We discussed further treatment options of stress/urge incontinence. Follow-up next available in office cystoscopy with imaging and labs to be completed prior; or sooner with any issues, concerns, and or questions. Orders: Orders AMB Urinalysis Automated Today Z13.9 - Encounter for screening, unspecified Blood Urea Nitrogen Today F17.200 - Nicotine dependence, unspecified, uncomplicated, N20.0 - Calculus of kidney, R31.29 - Other microscopic hematuria Creatinine Today F17.200 - Nicotine dependence, unspecified, uncomplicated, N20.0 - Calculus of kidney, R31.29 - Other microscopic hematuria Urine Cytology Today R31.29 - Other microscopic hematuria CT urogram Today F17.200 - Nicotine dependence, unspecified, uncomplicated, N20.0 - Calculus of kidney, R31.29 - Other microscopic hematuria Patient Instructions: The patient had an opportunity to ask questions regarding the treatment plan. All questions were answered. Physical exam, labs, and imaging were discussed and reviewed in detail. As well as risks, benefits, and discussion of treatment choices. No major barriers to understanding were identified. The patient expressed understanding and agreement with the above treatment plan. The patient was made aware they should contact our office by phone for worsening of their current condition, the appearance of new symptoms, or with any questions or concerns. Compliance is encouraged with any medications and follow up testing that is ordered. It is a privilege to be allowed the opportunity to participate in? your urological care.? Again, if you have any questions or concerns If you have any questions or concerns please do not hesitate to contact me. The office is [phone]. This note is constructed using voice recognition software. While every effort has been made to ensure accuracy printing shop supervisor errors may have been included. Yours sincerely, JOANN Smith Coding Level of Care Code New Pt Level 3 (42158) Diagnoses Smoker F17.200 Microhematuria R31.29 Nephrolithiasis N20.0 Mixed incontinence urge and stress N39.46
--- OUTSIDE RECORDS SUMMARY | 2024-07-21 15:14 | XMS_ITS | Clinical Summary ---
Author Organization Unknown Care Team Providers Care Pe Manager Name Role Phone ALECIA DELEON, MUKESH LESTER Unavailable Unavaila isael ELLISON RN, TRAE Unavailable Unavailable Payers Payer Name Policy Type Policy Number Effective Date Expira tion Date [facility] [id number] MEDICAID [facility] [id number] Problems Condition Name Condition Details Condition Category [...] tablet, extended release 2023-07 00:00: 00 Yes [id number] 300 mg DAILY 300 mg DAILY (route: oral) Med Classific ation: Central Nervous System Agents clonazepam 0.5 mg disintegrat ing tablet 2023-07 00:00: 00 Yes [id number] 0.5 mg 2 TIMES DAILY 0.5 mg 2 TIMES DAILY (route: oral) Med Classific ation: Central Nervous System Agents diphenhydra mine 50 mg capsule 2023-07 00:00: 00 Yes [id number] 50 mg BEDTIME 50 mg BEDTIME (route: oral) Med Classific ation: Respirato ry Therapy Agents olanzapine 15 mg tablet 2023-07 00:00: 00 Yes [id number] 15 mg BEDTIME 15 mg BEDTIME (route: oral) Med Classific ation: Central Nervous System Agents omeprazole 40 mg capsule,del ayed release 2023-07 00:00: 00 Yes [id number] 40 mg DAILY 40 mg DAILY (route: oral) Med Classific ation: Gastroint estinal Therapy Agents prazosin 2 mg capsule 2023-07 00:00: 00 Yes [id number] 2 mg BEDTIME 2 mg BEDTIME (route: oral) Med Classific ation: Cardiovas cular Therapy Agents venlafaxine ER 225 mg tablet,exte nded release 24 hr 2023-07 00:00: 00 Yes [id number] 225 mg DAILY 225 mg DAILY (route: oral) Med Classific ation: Central Nervous System Agents Vital Signs Vital Name Observation Time Observation Value Commen ts Temperature 2024-07-16 14:44:00.000 98 [degF] Temperature 2024-07-13 22:56:00.000 98 [degF] Temperature 2024-07-06 22:56:00.000 98 [degF] Temperature 2024-07-02 23:01:00.000 98 [degF] Temperature 2024-06-28 20:08:00.000 98 [degF] Temperature 2024-06-24 23:42:00.000 98 [degF] Temperature 2024-06-21 22:32:00.000 98 [degF] Temperature 2024-06-18 11:48:00.000 98 [degF] Temperature 2024-06-12 21:10:00.000 98 [degF] BMI (%) 2024-06-12 21:10:00.000 28 kg/m2 Height 2024-06-12 21:10:00.000 64 [in_us] Pulse 2024-07-16 14:44:00.000 75 /min Pulse 2024-07-13 22:56:00.000 69 /min Pulse 2024-07-06 22:56:00.000 77 /min Pulse 2024-07-02 23:01:00.000 78 /min Pulse 2024-06-28 20:08:00.000 68 /min Pulse 2024-06-24 23:42:00.000 63 /min Pulse 2024-06-21 22:32:00.000 77 /min Pulse 2024-06-18 11:48:00.000 79 /min Pulse 2024-06-12 21:10:00.000 80 /min Respirations 2024-07-16 14:44:00.000 12 /min Respirations 2024-07-13 22:56:00.000 14 /min Respirations 2024-07-06 22:56:00.000 14 /min Respirations 2024-07-02 23:01:00.000 12 /min Respirations 2024-06-28 20:08:00.000 14 /min Respirations 2024-06-24 23:42:00.000 14 /min Respirations 2024-06-21 22:32:00.000 14 /min Respirations 2024-06-18 11:48:00.000 14 /min Respirations 2024-06-12 21:10:00.000 14 /min Weight (lbs) 2024-06-12 21:10:00.000 165 [lb_av] Systolic Blood Pressure 2024-07-16 14:44:00.000 122 mm [Hg] Systolic Blood Pressure 2024-07-13 22:56:00.000 112 mm [Hg] Systolic Blood Pressure 2024-07-06 22:56:00.000 114 mm [Hg] Systolic Blood Pressure 2024-07-02 23:01:00.000 112 mm [Hg] Systolic Blood Pressure 2024-06-28 20:08:00.000 118 mm [Hg] Systolic Blood Pressure 2024-06-24 23:42:00.000 116 mm [Hg] Systolic Blood Pressure 2024-06-21 22:32:00.000 122 mm [Hg] Systolic Blood Pressure 2024-06-18 11:48:00.000 121 mm [Hg] Systolic Blood Pressure 2024-06-12 21:10:00.000 135 mm [Hg] Diastolic Blood Pressure 2024-07-16 14:44:00.000 74 mm [Hg] Diastolic Blood Pressure 2024-07-13 22:56:00.000 68 mm [Hg] Diastolic Blood Pressure 2024-07-06 22:56:00.000 70 mm [Hg] Diastolic Blood Pressure 2024-07-02 23:01:00.000 71 mm [Hg] Diastolic Blood Pressure 2024-06-28 20:08:00.000 70 mm [Hg] Diastolic Blood Pressure 2024-06-24 23:42:00.000 72 mm [Hg] Diastolic Blood Pressure 2024-06-21 22:32:00.000 [...] FOR COMMUNITY RESOURCES RT HOUSING. [code = SALARY MANAGER TO EVALUATE PATIENT FOR COMMUNITY RESOURCES RT [...] AWARENESS FOR SAFETY AND WILL NOTIFY CLINICAL MIDDLE SCHOOL COACH AND PHYSICIAN/PROVIDER WITH ANY CHANGE IN CONDITION. [...] AWARENESS FOR SAFETY AND WILL NOTIFY CLINICAL MIDDLE SCHOOL COACH AND PHYSICIAN/PROVIDER WITH ANY CHANGE IN CONDITION.] Future Scheduled Test SKILLED NU RSE WILL MAINTAIN SITUATIONAL AWARENESS FOR SAFETY AND WILL NOTIFY CLINICAL MIDDLE SCHOOL COACH AND PHYSICIAN/PROVIDER WITH ANY CHANGE IN CONDITION. [code = SKILLED NURSE WILL MAINTAIN SITUATIONAL AWARENESS FOR SAFETY AND WILL NOTIFY CLINICAL MIDDLE SCHOOL COACH AND PHYSICIAN/PROVIDER WITH ANY CHANGE IN CONDITION.] Future Scheduled Test MEDICAL SO CIAL SERVICES FOR EVALUATION TO ASSESS SOCIAL AND EMOTIONAL FACTORS RELATED TO THE PATIENT'S ILLNESS, NEED FOR CARE, RESPONSE TO TREATMENT AND ADJUSTMENT TO CARE; TO BE FOLLOWED BY COLLABORATION WITH THE PHYSICIAN AND NURSE TO DEVELOP A PLAN OF CARE SUMMARY OF SCRUM PRODUCT OWNER EVAL/ASSESSMENT FINDINGS AND REASON(S) LEARNING COORDINATOR IS INDICATED: SCRUM PRODUCT OWNER EVALUATION: JEAN IS A 53 YEAR OLD FEMALE REFERRED TO [facility] FOLLOWING HOSPITALIZATION FOR SUICIDE ATTEMPT BY INTENTIONAL OVERDOSING ON BENEDRYL AND KL[place]OP[place]. PMH INCLUDES GERD, PSORIASIS, KIDNEY STONES AND INSOMIA. SCRUM PRODUCT OWNER FACILITATED COMMUNITY RESOURCE ASSESSMENT AND LTC PLANNING [...] PRESENTED VERY ANXIOUS AND DEPRESSED DURING VISIT. SCRUM PRODUCT OWNER PROVIDED THERAPEUTIC SUPPORT. NO CURRENT SI/HI. SHE REPORTS SHE JUST BEEN DEALING WITH ALSO BUT HAVING HER COUSIN AND BOYFRIEND WITH HER AT HOME HAS BEEN HELPING. JEAN HAS A PSYCHOTHERAPIST AND PSYCHIATRIST THROUGH [facility] IN [place]. SCRUM PRODUCT OWNER PROVIDED CRISIS INFORMATION IF NEEDED. INTERVENTION: SINCE CHERY DEPRESSION HAS BEEN EFFECTING HER DAILY TASK SCRUM PRODUCT OWNER RECOMMENDED A [facility] APPLICATION MAY BE APPROPRIATE FOR ADDITIONAL SUPPORT. SCRUM PRODUCT OWNER PLANS TO FOLLOW UP 1 X TO COMPLETE [facility] APPLICATION ON NEXT VISIT. MEDICAL MODEL ARTISTS' FOR COMMUNITY RESOURCE PLANNING. [code = MEDICAL MODEL ARTISTS' FOR EVALUATION TO ASSESS SOCIAL AND EMOTIONAL FACTORS RELATED TO THE PATIENT'S ILLNESS, NEED FOR CARE, RESPONSE TO TREATMENT AND ADJUSTMENT TO CARE; TO BE FOLLOWED BY COLLABORATION WITH THE PHYSICIAN AND NURSE TO DEVELOP A PLAN OF CARE SUMMARY OF SCRUM PRODUCT OWNER EVAL/ASSESSMENT FINDINGS AND REASON(S) LEARNING COORDINATOR IS INDICATED: SCRUM PRODUCT OWNER EVALUATION: JEAN IS A 53 YEAR OLD FEMALE [facility] FOLLOWING HOSPITALIZATION FOR SUICIDE ATTEMPT BY INTENTIONAL OVERDOSING ON BENEDRYL AND [place]. PMH INCLUDES GERD, PSORIASIS, KIDNEY STONES AND INSOMIA. SCRUM PRODUCT OWNER FACILITATED COMMUNITY RESOURCE ASSESSMENT AND LTC PLANNING [...] PRESENTED VERY ANXIOUS AND DEPRESSED DURING VISIT. SCRUM PRODUCT OWNER PROVIDED THERAPEUTIC SUPPORT. NO CURRENT SI/HI. SHE REPORTS SHE JUST BEEN DEALING WITH ALSO BUT HAVING HER COUSIN AND BOYFRIEND WITH HER AT HOME HAS BEEN HELPING. JEAN HAS A PSYCHOTHERAPIST AND PSYCHIATRIST THROUGH [facility] IN [place]. SCRUM PRODUCT OWNER PROVIDED CRISIS INFORMATION IF NEEDED. INTERVENTION: SINCE CHERY DEPRESSION HAS BEEN EFFECTING HER DAILY TASK SCRUM PRODUCT OWNER RECOMMENDED A [facility] APPLICATION MAY BE APPROPRIATE FOR ADDITIONAL SUPPORT. SCRUM PRODUCT OWNER PLANS TO FOLLOW UP 1 X TO COMPLETE [facility] APPLICATION ON NEXT VISIT. MEDICAL MODEL ARTISTS' FOR COMMUNITY RESOURCE PLANNING.] Goal Patient Goal - L EARN HOW TO TAKE MEDS RIGHT. Goal Provider Goal - A PLAN OF CARE WILL BE ESTABLISHED THAT MEETS PATIENT'S RESIDENTIAL NEEDS AND INCLUDES PATIENT GOAL FOR HOME [...] DATE OF DISCHARGE. Goal Provider Goal - SALARY MANAGER TO COMPLETE EVALUATION TO ADDRESS THE PATIENTS [...] PERIOD. Goal Provider Goal - A MEDICAL MODEL ARTISTS' CONSULT PRN WILL BE COMPLETED FOR THE [...] HOME. Progress Notes Progress Notes <paragraph>[Visit Date: 2024 by TRAE ELLISON RN]:</paragraph><paragraph>MEDICATION PRE-POURED AND ADMINISTERED. NO ISSUES. PT APPEARS TO BE IN GOOD SPIRITS TODAY. PT VERBALIZED COMPLETE UNDERSTANDING OF MEDICATION EDUCATION.</paragraph> Encounters Start Date/Time End Date/Time Encounter Type Admission Type Attending [facility] Facility Care Department Encounter ID Discharge Date Discharge Status Discharge Condition Discharge Reason Percent Goals Met 2024-06-11 00:00:00 2024-08-09 00:00:00 Outpatient NEW ADMISSION TRAE ELLISON [facility] [id number] 19.44
== END 2024-07-21 13:32 | disposition home or self-care (01) ==
PROVIDERS: PCP Internal Medicine; Visit Provider Nurse Practitioner Family
DX: F17.200 Nicotine dependence, unspecified, uncomplicated (principal); R31.29 Other microscopic hematuria; N20.0 Calculus of kidney; N39.46 Mixed incontinence; Z13.9 Encounter for screening, unspecified
CPT/HCPCS: 99203

== ENCOUNTER 2024-08-12 12:21 | Outpatient (REF) | payer OTHER, SELFPAY ==
--- OUTSIDE RECORDS SUMMARY | 2024-08-12 12:51 | XMS_ITS | Clinical Summary ---
Author Organization [facility] ity Address [address] [place] [address] Care Team Providers Care Automatic Cigar Wrapper Tender Name Role Phone Unavailable Primary Care Provider Unavailabl e Social History Tobacco Use Types Packs/Day Years Used Date Smoking Tobacco: Never Assessed Sex and Gender Information Value Date Recorded Sex Assigned at Not on file Gender Identity Not on file Sexual Orientation Not on file Last Filed Vital Signs Vital Sign Reading Time Taken Comments Blood Pressure 124/80 08/12/2018 12:00 AM EST Pulse 81 08/12/2018 12:00 AM EST Temperature - - Respiratory Rate - - Oxygen Saturation - - Inhaled Oxygen Concentration - - Weight 68 kg (150 lb) 08/12/2018 12:00 AM EST Height 164.5 cm (5' 4.75 ) 08/12/2018 12:[address] Body Mass Index 25.15 08/12/2018 12:00 AM EST Plan of Treatment Health Maintenance Due Date Last Done Comments DTaP,Tdap,and Td Vaccines (1 - Tdap) 1989 Hepatitis B Vaccines (1 of 3 - 19+ 3-dose series) 1989 Breast Cancer Screening 06/09/2020 06/09/2018 Zoster Vaccines (1 of 2) 2020 Cervical Cancer Screening: P ap Smear 10/31/2020 10/31/2017 COVID-19 Vaccine ( - 2023-2 5 season) 2024 Influenza Vaccine (#1) 2024 HIB Vaccines Aged Out No longer eligi ble based on patient's age to complete this topic HPV Vaccines Aged Out No longer eligi ble based on patient's age to complete this topic Hepatitis A Vaccines Aged Out No long er eligible based on patient's age to complete this topic IPV Vaccines Aged Out No longer eligi ble based on patient's age to complete this topic MMR Vaccines Aged Out No longer eligi ble based on patient's age to complete this topic Meningococcal ACWY Vaccine Aged Out N o longer eligible based on patient's age to complete this topic Pneumococcal Vaccine: Pediat rics (0 to 5 Years) and At-Risk Patients (6 to 64 Years) Aged Out No longer eligi ble based on patient's age to complete this topic RSV Immunization Patients Un nirmala 20 months Aged Out No longer eligible b ased on patient's age to complete this topic Varicella Vaccines Aged Out No longer eligible based on patient's age to complete this topic Procedures Procedure Name Priority Date/Time Associated Diagnosis Comments 3D DIGITAL RUTHANN SCREEN BILAT W/CAD Routine 06/09/2018 4:39 PM EST PAP SMEAR Routine 10/31/2017 11:51 AM EDT from Last 3 Months or Most Recently Relevant to Health Maintenance Results * 3D DIGITAL RUTHANN SCREEN BILAT W/CAD (06/09/2018 4:39 PM EST) Anatomical Region Laterality Modality Mammography 06/09/2018 12:5 6 PM EST Narrative 06/09/2018 4:39 PM EST EXAMINATION: [id number] - MG 3D Dig Ruthann Screen Bilat w/CA [id number] Exam Date: Jun ??2017 WORKING DIAGNOSIS: ?? occult ca FINDINGS: ?? Clinical: 47 years old Female presents for baseline screening mammography study. No active breast symptoms. This is the patient's baseline mammogram. Bilateral MLO and CC combo views were obtained in addition to Tomosynthesis imaging. The breast tissue is heterogeneously dense, which could obscure detection of small masses. This parenchymal pattern appears symmetric. There are no suspicious masses, suspicious calcifications or regions of architectural distortion. This study was reviewed utilizing CAD R2. IMPRESSION: ?? . BIRADS 2. FINAL ASSESSMENT: BENIGN FINDINGS. Breast Density 3- The breast tissue is heterogeneously dense, which could obscure detection of small masses. Normal appearing screening mammogram with no radiographic findings to suggest malignancy. ??If there are no findings on your clinical evaluation, annual mammographic followup is advised. This study was reviewed utilizing CAD R2 version 1.3. INTERPRETED BY: JALIL RUELAS MD on Jun ??2017 ??4:37P Transcribed by: MIA on Jun? 2018 ??4:37P Approved Electronically by: JALIL RUELAS MD on Jun ??4:37P The patient information was entered into a reminder system with a target due date for the next mammogram. Procedure Note Jalil Ruelas MD - 05/30/2019 EXAMINATION: [id number] - MG 3D Dig Ruthann Screen Bilat w/CA [id number] Exam Date: Jun 09 2018 WORKING DIAGNOSIS: occult ca FINDINGS: Clinical: 47 years old Female presents for baseline screening mammography study. No active breast symptoms. This is the patient's baseline mammogram. Bilateral MLO and CC combo views were obtained in addition to Tomosynthesis imaging. The breast tissue is heterogeneously dense, which could obscure detection of small masses. This parenchymal pattern appears symmetric. There are no suspicious masses, suspicious calcifications or regions of architectural distortion. This study was reviewed utilizing CAD R2. IMPRESSION: . BIRADS 2. FINAL ASSESSMENT: BENIGN FINDINGS. Breast Density 3- The breast tissue is heterogeneously dense, which could obscure detection of small masses. Normal appearing screening mammogram with no radiographic findings to suggest malignancy. If there are no findings on your clinical evaluation, annual mammographic followup is advised. This study was reviewed utilizing CAD R2 version 1.3. INTERPRETED BY: JALIL RUELAS MD on Jun 09 2018 4:37P Transcribed by: MIA on Jun 09 2018 4:37P Approved Electronically by: JALIL RUELAS MD on Jun 09 2018 4:37P The patient information was entered into a reminder system with a target due date for the next mammogram. Pallavi Wang SOFTWARE RELIABILITY ENGINEER IMG BI PROCEDURES * Pap smear (10/31/2017 11:51 AM EDT) Case Results [facility] [address] [place] [address] CYTOPATHOLOGY REPORT Patient Name: EDA ROLLINS : 1970 Location: [facility] Case #: [id number] Procedure Date: 10/31/2017 Received: 10/31/2017 Reported: 11/05/2017 13:29 Submitted By: ZOEY MAGUIRE Copy To: Specimens Submitted: THINPREP PAP TEST (SCREENING) Diagnosis: Negative for intraepithelial lesion or malignancy Specimen Adequacy: Satisfactory for evaluation Endocervical/ transformation zone component absent. Gela VELÁZQUEZ(ASCP) Document reviewed and electronically signed Clinical History: Date of Last Menstrual Period: ??3 months Other Clinical Conditions: Source: Cervical/Endocervi delgado ICD-9: A: V76.2 Ref Codes: A: 142 HISTORICAL TESTING LAB RESULTING AGENCY 10/31/2017 11:5 1 AM EDT Zoey Maguire DO LAB CYTOLOGY ORDERAB LES HISTORICAL TESTING LAB RESULTING AGENCY from Last 3 Months or Most Recently Relevant to Health Maintenance
[2024-08-12 16:43] LABS: Influenza A PCR POSITIVE (Negative); Influenza B PCR NEGATIVE (Negative); Resp Syncy Virus RNA Qual PCR NEGATIVE (Negative); SARS COV2 PCR INHOUSE NEGATIVE (Negative)
== END 2024-08-12 12:22 | disposition home or self-care (01) ==
LOC: HO.LAB 12:21
PROVIDERS: Nurse Practitioner Family; PCP Internal Medicine
DX: J06.9 Acute upper respiratory infection, unspecified (principal)
CPT/HCPCS: 0241U; 99212

== ENCOUNTER 2024-09-01 11:34 | Outpatient (AMB) | payer OTHER, SELFPAY ==
[2024-09-01 11:34] VITALS: BP 98/66; BMI 30.2
--- NOTE | 2024-09-01 11:34 | A.OFFVIS_ITS ---
Vital Signs 09/01/24 11:34 Height 5 ft 7 in Weight 193 lb BMI 30.2 BP 98/66 Intake Visit Reasons: u/s follow up Patient Accounts Coordinator Services: Patient Accounts Coordinator Present Information Interpreted: clinical only Plaster Caster: Plaster Caster Present Allergies ibuprofen [IBUPROFEN] Allergy (Intermediate, Verified 09/01/24 11:35) STOMACH UPSET, GI upset Post menopausal: Yes (2021) HPI HPI u/s follow up: Details: Patient is here to review her ultrasound results done in June. She had been seen in the emergency room for probable kidney stones and so was referred for follow-up in various other possible reasons for her pain. She thinks she is having a recurrence with her kidney stone which she has had for years. She is a family history of kidney stones and she has 2 relatives on dialysis as well. She has an appointment tomorrow with urology. She does not know when her next obstetrics gynecology md annual she thinks her last Pap smear was a few years ago. She only had a abnormal 1 once in her 20s. [facility] Medical History Acute respiratory disease Nephrolithiasis Microhematuria Psoriasis Smoker MAYKEL (obstructive sleep apnea) Anxiety and depression Former smoker, stopped smoking in distant past Multiple lung nodules on CT Upper back pain Cigarette smoker motivated to quit Somnolence Sciatica neuralgia Chronic GERD Excessive daytime sleepiness Witnessed apneic spells Loud snoring Lumbago HSV (herpes simplex virus) infection Anxiety Depression Iron deficiency anemia GERD (gastroesophageal reflux disease) Psoriatic arthritis Vitamin D deficiency Hypercalcemia Hyperparathyroidism Surgical History Hx of myringotomy Hx of tonsillectomy Hx of tubal ligation Family History Father GI disease Mother Type 2 diabetes mellitus Depressed Mental health disorder Paternal Aunt Breast CA Sister Nephrolithiasis Mental health disorder Daughter Substance use disorder Son Substance use disorder Mental health disorder Daughter Mental health disorder Brother Mental health disorder Brother Mental health disorder Brother Mental health disorder Social History Housing: Apartment Patient Tobacco Use Status: Former Tobacco user Cigarette Packs Per Day: 0.5 Cigarettes Per Day: 10 e-Cigarette/Vaping Use: Never Used service: No Current occupational status: unemployed Cognitive needs: No Hearing needs: No Vision needs: Yes Female Reproductive History Menstrual Age of Menarche: 12 control method: permanent sterilization Total pregnancies: 3 Full term: 3 Date of last pap smear: 07/09/19 (negative) Physical Exam Vital Signs: Last Vital Signs BP 98/66 09/01/24 11:34 BMI result Body Mass Index 30.2 Results Reviewed Results Reviewed: Patient: Eda Rollins MR#: [id number] : 1970 Acct:[id number] Age/Sex: 53 / F ADM Date: 06/28/24 Loc: HO.US Attending Dr: Zaynab Cordoba CNM Ordering Physician: Zaynab Cordoba CNM Date of Service: 06/28/24 Procedure(s): US pelvic and transvaginal Accession Number(s): [id number] cc: Rose Shine MD; Zaynab Cordoba CNM~ EXAMINATION: US PELVIS CLINICAL INFORMATION: Pelvic and perineal pain; the last menstrual period is not specified. COMPARISON: Pelvic ultrasound dated 07/13/2019. TECHNIQUE: Ultrasound of the pelvis is performed using both transabdominal and transvaginal transducers along with Doppler. Transvaginal imaging is performed due to inadequate visualization transabdominally. FINDINGS: Uterus: The uterus is retroverted and measures 7.5 x 3.5 x 4.3 cm. The double wall endometrial thickness is 0.4 mm. The uterus is smooth in contour and has normal myometrial echogenicity. No visible fibroid. Adnexa: Both ovaries are nonvisualized. No adnexal mass or pelvic free fluid is seen. US/US pelvic and transvaginal IMPRESSION: Unremarkable examination, with the ovaries nonvisualized. Electronically signed by: Sav Waldrop MD 07/28/2024 11:31 AM [facility] [place], [place] Dictated By: Sav Waldrop MD Signed By: <Electronically signed by Sav Waldrop MD in OV> 07/28/24 1131 DD/ 1121 TD/TT: 06/28/24 1133 [employer] Sticker: KEVIN Name: Eda Rollins Age/Sex: 53/F : 1970 Unit#: [id number] Attend Dr: Zaynab Cordoba CNM Re05/20/24 Status: DEP [facility] Disch: SPEC : [id number] SRINIVASA: 05/20/24-UNK STATUS: COMP REQ : [id number] RECD: 05/20/[address]: Zaynab Cordoba CNM COMP: 05/21/24 ENTERED: 05/20/24 [facility] DR: Rose Shine MD ORDERED: CT NG by PCR QUERIES: CT NG Source: Vaginal Test Result Flag Reference CT PCR NOT DETECTED Not Detect. A not detected test result does not exclude the possibility of infection because test results can be affected by improper specimen collection, concurrent antibiotic therapy, or the number of organisms in the specimen which may be below the sensitivity of the test. As with many diagnostic tests, results from the Xpert CT/NG assay should be interpreted in conjunction with other laboratory and clinical data available to the clinician. Xpert CT/NG performance has not been evaluated in patients less than 14 years of age. The assay should not be used for the evaluation of suspected sexual abuse or for other medico-legal indications. Additional testing is recommended in any circumstance when false positive or false negative results could lead to adverse medical, social or psychological consequences. NG PCR NOT DETECTED Not Detect. A not detected test result does not exclude the possibility of infection because test results can be affected by improper specimen collection, concurrent antibiotic therapy, or the number of organisms in the specimen which may be below the sensitivity of the test. As with many diagnostic tests, results from the Xpert CT/NG assay should be interpreted in conjunction with other laboratory and clinical data available to the clinician. Xpert CT/NG performance has not been evaluated in patients less than 14 years of age. The assay should not be used for the evaluation of suspected sexual abuse or for other medico-legal indications. Additional testing is recommended in any circumstance when false positive or false negative results could lead to adverse medical, social or psychological consequences. Also last Pap in system negative with negative HPV ---jun 2019 END OF REPORT Assessment & Plan Assessment & Plan (1) Nephrolithiasis: Code(s): N20.0 - Calculus of kidney Category: Medical (2) Breast cancer screening: Code(s): Z12.39 - Encounter for other screening for malignant neoplasm of breast Category: Medical (3) Encounter to discuss test results: Code(s): Z71.2 - Person consulting for explanation of examination or test findings Category: Medical (4) Pelvic pain: Comment: 09/01/2024 patient says it has resolved now but it is more right abdominal pain which she thinks is any stones, has urology appointment tomorrow. Code(s): R10.2 - Pelvic and perineal pain Category: Medical Plan I reviewed her normal pelvic ultrasound reviewed other findings that I found in the chart reviewed her negative Pap from 2019 it was in historical data. She says she has not had a mammogram in many years so her next appointment we will be for annual exam but I am ordering her mammogram ahead of time. I wished her luck with her urology assessment and testing tomorrow. She says she drinks a lot a water. I reviewed that her ultrasound findings were reassuring end even though her ovaries were not seen there was no enlargement or evidence of a problem. annual and pap this year mammogram Orders: Orders MM tomosynthesis screening BI Today Z12.31 - Encounter for screening mammogram for malignant neoplasm of breast, Z12.39 - Encounter for other screening for malignant neoplasm of breast Coding Level of Care Code Est Pt Level 3 (93560) Diagnoses Nephrolithiasis N20.0 Breast cancer screening Z12.39 Encounter to discuss test results Z71.2 Pelvic pain R10.2
--- OUTSIDE RECORDS SUMMARY | 2024-09-01 14:32 | XMS_ITS | Clinical Summary ---
Author Organization [facility] it[facility] Address [address] [place] [address] Care Team Providers Care Enterostomal Nurse Name Role Phone Unavailable Primary Care Provider Unavailabl e Social History Tobacco Use Types Packs/Day Years Used Date Smoking Tobacco: Never Assessed Comments Unknown Sex and Gender Information Value Date Recorded Sex Assigned at Not on file Legal Sex Female 6:56 PM EDT Gender Identity Not on file Sexual Orientation [...] series) 1989 Breast Cancer Screening 06/09/2020 06/09/2018 Pneumococcal Vaccine: 50+ Ye ars (1 of 1 - PCV) 2020 Zoster Vaccines (1 of 2) 2020 Cervical [...] patient's age to complete this topic Meningococcal B Vacine Aged Out No lo nger eligible based on patient's age to complete [...] EST Narrative 06/09/2018 4:39 PM EST EXAMINATION: [id number] - MG 3D Dig Ruthann Screen Bilat w/CA [id number] Exam Date: Jun WORKING DIAGNOSIS: ?? occult ca FINDINGS: ?? [...] INTERPRETED BY: JALIL RUELAS MD on Jun ?? 2018 ??4:37P Transcribed by: MIA on Jun?2017 ??4:37P Approved Electronically by: JALIL RUELAS MD on Jun ?? 2018 ??4:37P The patient information was entered into a reminder system with a target due date for the next mammogram. Procedure Note Jalil Ruelas MD - 05/30/2019 EXAMINATION: [id number] - MG 3D Dig Ruthann Screen Bilat w/CA [id number] Exam Date: Jun 09 2018 WORKING DIAGNOSIS: [...] utilizing CAD R2 version 1.3. INTERPRETED BY: JLAIL RUELAS MD on Jun 09 2018 4:37P Transcribed by: MIA on Jun 09 2018 4:37P Approved Electronically by: JALIL RUELAS MD on Jun 09 2018 4:37P The patient information was entered into a reminder system with a target due date for the next mammogram. us Pallavi Wang EXPEDITER SERVICE ORDER IMG BI PROCEDURES Final R esult * Pap smear (10/31/2017 11:51 AM EDT) Case Results [facility] [address] [place] [address] CYTOPATHOLOGY REPORT Patient Name: EDA ROLLINS : 1970 Location: [facility] Case #: [id number] Procedure Date: 10/31/2017 Received: 10/31/2017 Reported: 11/05/2017 [...] RESULTING AGENCY 10/31/2017 11:5 1 AM EDT us Zoey Maguire DO LAB CYTOLOGY ORDERABLES Final R esult HISTORICAL TESTING LAB RESULTING AGENCY from Last 3 Months or Most Recently Relevant to Health Maintenance
== END 2024-09-01 13:06 | disposition home or self-care (01) ==
PROVIDERS: PCP Internal Medicine; Visit Provider Advanced Practice Midwife
DX: N20.0 Calculus of kidney (principal); Z12.39 Encounter for other screening for malignant neoplasm of breast; Z71.2 Person consulting for explanation of examination or test findings; R10.2 Pelvic and perineal pain
CPT/HCPCS: 99213

== ENCOUNTER → 2024-09-01 11:34 | Outpatient (BNVA) | payer OTHER, SELFPAY | PROVIDERS: PCP Internal Medicine; Visit Provider Advanced Practice Midwife | DX: N20.0 Calculus of kidney (principal); R10.2 Pelvic and perineal pain; Z71.2 Person consulting for explanation of examination or test findings | CPT/HCPCS: 99212 ==

== ENCOUNTER 2024-09-02 14:21 | Outpatient (REF) | payer OTHER, SELFPAY ==
[2024-09-02 16:30] LABS: Blood Urea Nitrogen 14 mg/dL (9-16); Estimated Glomerular Filt Rate > 60
--- OUTSIDE RECORDS SUMMARY | 2024-09-02 19:02 | XMS_ITS | Clinical Summary ---
Author Organization Unknown Care Team Providers Care Electrical Engineering Manager Name Role Phone ALECIA DELEON, MUKESH LESTER Unavailable Unavaila isael ELLISON RN, TRAE Unavailable Unavailable Payers Payer Name Policy Type Policy Number Effective Date Expira tion Date [facility] [place] [place] [facility] [id number] MEDICAID [facility] [id number] Problems Condition Name Condition Details Condition Category [...] tablet, extended release 2023-07 00:00: 00 Yes [id number] 300 mg DAILY 300 mg DAILY (route: oral) Med Classific ation: Central Nervous System Agents clonazepam 0.5 mg disintegrat ing tablet 2023-07 00:00: 00 Yes [id number] 0.5 mg 2 TIMES DAILY 0.5 mg 2 TIMES DAILY (route: oral) Med Classific ation: Central Nervous System Agents diphenhydra mine 50 mg capsule 2023-07 00:00: 00 Yes [id number] 50 mg BEDTIME 50 mg BEDTIME (route: oral) Med Classific ation: Respirato ry Therapy Agents olanzapine 15 mg tablet 2023-07 00:00: 00 07-28 23:59 :00 No [id number] 15 mg BEDTIME 15 mg BEDTIME (route: oral) Med Classific ation: Central Nervous System Agents omeprazole 40 mg capsule,del ayed release 2023-07 00:00: 00 Yes [id number] 40 mg DAILY 40 mg DAILY (route: oral) Med Classific ation: Gastroint estinal Therapy Agents prazosin 2 mg capsule 2023-07 00:00: 00 07-28 23:59 :00 No [id number] 2 mg BEDTIME 2 mg BEDTIME (route: oral) Med Classific ation: Cardiovas cular Therapy Agents venlafaxine ER 225 mg tablet,exte nded release 24 hr 2023-07 00:00: 00 Yes [id number] 225 mg DAILY 225 mg DAILY (route: oral) Med Classific ation: Central Nervous System Agents olanzapine 20 mg tablet 07-26 00:00: 00 Yes [id number] 20 mg BEDTIME 20 mg BEDTIME (route: oral) Med Classific ation: Central Nervous System Agents prazosin 5 mg capsule 07-28 00:00: 00 Yes [id number] 5 mg BEDTIME 5 mg BEDTIME (route: oral) Med Classific ation: Cardiovas cular Therapy Agents bupropion HCl SR 150 mg tablet,12 hr sustained-r elease 08-10 00:00: 00 Yes [id number] 150 mg DAILY 150 mg DAILY (route: [...] AWARENESS FOR SAFETY AND WILL NOTIFY CLINICAL CASINO CONTROLLER AND PHYSICIAN/PROVIDER WITH ANY CHANGE IN CONDITION. [code = SKILLED NURSE WILL MAINTAIN SITUATIONAL AWARENESS FOR SAFETY AND WILL NOTIFY CLINICAL CASINO CONTROLLER AND PHYSICIAN/PROVIDER WITH ANY CHANGE IN CONDITION.] Goal 2024-08-09 Patient Goal - L EARN HOW TO TAKE MEDS RIGHT. Goal Patient Goal - L EARN HOW TO TAKE MEDS RIGHT. Goal Provider Goal - A PLAN OF CARE WILL BE ESTABLISHED THAT MEETS PATIENT'S PRISON NEEDS AND INCLUDES PATIENT GOAL FOR HOME [...] End Date/Time Encounter Type Admission Type Attending [facility] Care Facility Care Department Encounter ID Discharge Date Discharge Status Discharge Condition Discharge Reason Percent Goals Met 2024-06-11 00:00:00 2024-10-08 00:00:00 Outpatient RECERTIFIC ATTRAE ARANDA [facility] [id number] 38.10
--- OUTSIDE RECORDS SUMMARY | 2024-09-02 19:02 | XMS_ITS | Clinical Summary ---
Author Organization Unknown Care Team Providers Care Supervisor Boat Outfitting Name Role Phone ALECIA DELEON, MUKESH LESTER Unavailable Unavaila isael ELLISON RN, TRAE Unavailable Unavailable Payers Payer Name Policy Type Policy Number Effective Date Expira tion Date [facility] [place] [facility] [id number] MEDICAID [facility] [id number] Problems Condition Name Condition Details Condition Category [...] tablet, extended release 2023-07 00:00: 00 Yes [id number] 300 mg DAILY 300 mg DAILY (route: oral) Med Classific ation: Central Nervous System Agents clonazepam 0.5 mg disintegrat ing tablet 2023-07 00:00: 00 Yes [id number] 0.5 mg 2 TIMES DAILY 0.5 mg 2 TIMES DAILY (route: oral) Med Classific ation: Central Nervous System Agents diphenhydra mine 50 mg capsule 2023-07 00:00: 00 Yes [id number] 50 mg BEDTIME 50 mg BEDTIME (route: oral) Med Classific ation: Respirato ry Therapy Agents olanzapine 15 mg tablet 2023-07 00:00: 00 07-28 23:59 :00 No [id number] 15 mg BEDTIME 15 mg BEDTIME (route: oral) Med Classific ation: Central Nervous System Agents omeprazole 40 mg capsule,del ayed release 2023-07 00:00: 00 Yes [id number] 40 mg DAILY 40 mg DAILY (route: oral) Med Classific ation: Gastroint estinal Therapy Agents prazosin 2 mg capsule 2023-07 00:00: 00 07-28 23:59 :00 No [id number] 2 mg BEDTIME 2 mg BEDTIME (route: oral) Med Classific ation: Cardiovas cular Therapy Agents venlafaxine ER 225 mg tablet,exte nded release 24 hr 2023-07 00:00: 00 Yes [id number] 225 mg DAILY 225 mg DAILY (route: oral) Med Classific ation: Central Nervous System Agents olanzapine 20 mg tablet 07-26 00:00: 00 Yes [id number] 20 mg BEDTIME 20 mg BEDTIME (route: oral) Med Classific ation: Central Nervous System Agents prazosin 5 mg capsule 07-28 00:00: 00 Yes [id number] 5 mg BEDTIME 5 mg BEDTIME (route: oral) Med Classific ation: Cardiovas cular Therapy Agents bupropion HCl SR 150 mg tablet,12 hr sustained-r elease 08-10 00:00: 00 Yes [id number] 150 mg DAILY 150 mg DAILY (route: [...] AWARENESS FOR SAFETY AND WILL NOTIFY CLINICAL ELECTRICAL TESTS SUPERVISOR AND PHYSICIAN/PROVIDER WITH ANY CHANGE IN CONDITION. [code = SKILLED NURSE WILL MAINTAIN SITUATIONAL AWARENESS FOR SAFETY AND WILL NOTIFY CLINICAL ELECTRICAL TESTS SUPERVISOR AND PHYSICIAN/PROVIDER WITH ANY CHANGE IN CONDITION.] Goal 2024-08-09 Patient Goal - L EARN HOW TO TAKE MEDS RIGHT. Goal Patient Goal - L EARN HOW TO TAKE MEDS RIGHT. Goal Provider Goal - A PLAN OF CARE WILL BE ESTABLISHED THAT MEETS PATIENT'S NURSING HOME NEEDS AND INCLUDES PATIENT GOAL FOR HOME [...] End Date/Time Encounter Type Admission Type Attending [facility] Care Facility Care Department Encounter ID Discharge Date Discharge Status Discharge Condition Discharge Reason Percent Goals Met 2024-06-11 00:00:00 2024-10-08 00:00:00 Outpatient RECERTIFIC ATTRAE ARANDA [facility] [id number] 38.10
--- OUTSIDE RECORDS SUMMARY | 2024-09-02 19:02 | XMS_ITS | Clinical Summary ---
Author Organization [facility] ity Address [address] [place] [address] Care Team Providers Care Keg Washer Name Role Phone Unavailable Primary Care Provider [...] EST Narrative 06/09/2018 4:39 PM EST EXAMINATION: [id number] - MG 3D Dig Ruthann Screen Bilat w/CA [id number] Exam Date: Jun WORKING DIAGNOSIS: ?? occult [...] Note Jalil Ruelas MD - 05/30/2019 EXAMINATION: [id number] - MG 3D Dig Ruthann Screen Bilat w/CA [id number] Exam Date: Jun 09 2018 WORKING DIAGNOSIS: [...] for the next mammogram. us Pallavi Wang RURAL SERVICE ENGINEER IMG BI PROCEDURES Final R esult * Pap smear (10/31/2017 11:51 AM EDT) Case Results [facility] [address] [place] [address] CYTOPATHOLOGY REPORT Patient Name: EDA ROLLINS : 1970 Location: [facility] Case #: [id number] Procedure Date: 10/31/2017 Received: 10/31/2017 Reported: 11/05/2017 [...]
== END 2024-09-02 14:22 | disposition home or self-care (01) ==
LOC: HO.LAB 14:21
PROVIDERS: PCP Internal Medicine; Visit Provider Urology
DX: R31.29 Other microscopic hematuria (principal); N20.0 Calculus of kidney; F17.200 Nicotine dependence, unspecified, uncomplicated; N39.46 Mixed incontinence; Z79.899 Other long term (current) drug therapy
CPT/HCPCS: 36415; 52000; 81003; 82565; 84520; 99212

== ENCOUNTER 2024-09-02 14:21 | Outpatient (AMB) | payer OTHER, SELFPAY ==
--- NOTE | 2024-09-02 14:47 | A.OFFVIS_ITS ---
Intake Visit Reasons: cysto(Microhematuria) Intake Note: Patient is present for cystoscopy Urology Meds: tamsulosin Antibiotic Allergies: no Blood Thinners: none URO G-HD Disposable Cystoscope LOT: [id number] EXP: 11/12/26 Allergies ibuprofen [IBUPROFEN] Allergy (Intermediate, Verified 09/01/24 11:35) STOMACH UPSET, GI upset HPI Comments Details: 09/02/24--Chevy is here for office cystoscopy. The patient is being evaluated for hematuria. She was last evaluated in our office on 07/21/2024 by the nurse practitioner. 54-year-old female presenting with hematuria. The presence of hematuria was initially identified microscopically during a routine examination and subsequently noted as macroscopic approximately two weeks ago, with the patient observing light pink blood and experiencing renal discomfort. She has scheduled another CT scan to assess the current condition. She has a history of smoking since age 15; however, she ceased six months ago after years of intermittent smoking. Her current renal symptoms have prompted this evaluation to determine the cause of hematuria and exclude any additional bladder pathology. She complains of urge incontinence, will trial vesicare. Results - Tests and Diagnostics: - CT scan (05/17/2024): Multiple nonobstructing renal calculi noted. Cystoscopy today--Cystoscopy findings: WNL, no suspicious bladder lesions visualized 07/21/24--Eda is a pleasant 53-year-old f and years so a the the I leg blood in the urine from being around rule out any growth in the bladder smear problems urine in or and any medications for I mean have prescribed medi cation for urine of the bladder wall associated with bladder spasms urgency may help want me to talk Aline you helpful growth in the bladder that and no longer gain Zelaya's avoid and then we will go to a up S scan and then blood anytime now so is already emale patient of . She has a past medical history of nephrolithiasis, psoriasis, nicotine dependence, obstructive sleep apnea, anxiety, depression, somnolence, sciatic neuralgia, chronic GERD, lumbago, vitamin-D deficiency, hypercalcemia, and hair hyperparathyroidism. She presents to the office today as a new patient for nephrolithiasis and microscopic hematuria in the setting of nicotine dependence. In discussion with the patient today she reports having previously followed up with a urologist in [facility] many years ago and underwent an office cystoscopy with bladder biopsy however is unsure as to diagnosis or why she had this performed. She reports having followed up at [facility] late last year for lower back pain she had been experiencing at which time a CT KUB was ordered for further assessment evaluation. In review of patient's chart these results were reviewed CT without contrast noted bilateral kidneys with no hydronephrosis right kidney with nonobstructing stones however sizing of calculi was not documented. In office urinalysis results reviewed with the patient today 3+ microscopic hematuria. She reports a longstanding history of nephrolithiasis however never requiring surgical intervention. When asked she does report episodes of urge/stress incontinence and bladder pressure. She otherwise denies dysuria, foul smelling urine, changes to urinary stream, fever, and or chills. She does continue to report bilateral lower back pain. No CVA tenderness noted bilaterally on exam today. We discussed at length potential causes of microscopic hematuria. We discussed further workup to include imaging with contrast as well as in office cystoscopy for further assessment evaluation. Patient reports she has smoked on and off for over 35 years. She most recently quit this past summer. She discusses her family history of renal disease. She also discusses her parents being first cousins. She otherwise offers no other issues or concerns at this time. [facility] Medical History Acute respiratory disease Nephrolithiasis Microhematuria Psoriasis Smoker MAYKEL (obstructive sleep apnea) Anxiety and depression Former smoker, stopped smoking in distant past Multiple lung nodules on CT Upper back pain Cigarette smoker motivated to quit Somnolence Sciatica neuralgia Chronic GERD Excessive daytime sleepiness Witnessed apneic spells Loud snoring Lumbago HSV (herpes simplex virus) infection Anxiety Depression Iron deficiency anemia GERD (gastroesophageal reflux disease) Psoriatic arthritis Vitamin D deficiency Hypercalcemia Hyperparathyroidism Surgical History Hx of myringotomy Hx of tonsillectomy Hx of tubal ligation Family History Father GI disease Mother Type 2 diabetes mellitus Depressed Mental health disorder Paternal Aunt Breast CA Sister Nephrolithiasis Mental health disorder Daughter Substance use disorder Son Substance use disorder Mental health disorder Daughter Mental health disorder Brother Mental health disorder Brother Mental health disorder Brother Mental health disorder Social History Housing: Apartment Patient Tobacco Use Status: Former Tobacco user Cigarette Packs Per Day: 0.5 Cigarettes Per Day: 10 e-Cigarette/Vaping Use: Never Used service: No Current occupational status: unemployed Cognitive needs: No Hearing needs: No Vision needs: Yes Female Reproductive History Menstrual Age of Menarche: 12 Review of Systems Const All systems reviewed & are unremarkable except as noted in HPI and below Reports no additional complaints Eyes Reports no additional complaints ENT Reports no additional complaints Card Reports no additional complaints Resp Reports no additional complaints GI Reports no additional complaints Reports as per HPI Musc Reports no additional complaints Skin/Breast Reports system reviewed and no additional complaints, except as documented Neuro Reports no additional complaints Psych Reports no additional complaints Endo Reports no additional complaints Tree/Lymph Reports no additional complaints Aller/Immun Reports no additional complaints Office Procedures Cystoscopy Consent Discussed risk and benefit or proposed procedure with the patient. Information consent for procedure given to the patient. Discussed technical aspects, risks, benefits and alternatives in full. Addressed all of the patient's questions and concerns regarding the procedure. The patient demonstrated knowledge and understanding. They wish to proceed with this procedure. Preparation The patient was prepped in the usual manner. A electromedical service engineer was present and in the room. Genitalia was prepped with betadine solution in a sterile manner. Lidocaine Jelly 2% was placed into the urethra and 16Fr flexible Olympus cystoscope was inserted into the meatus after adequate lubrication. Time out per protocol performed. Bladder Inspection Bladder Inspection: The bladder was inspected in its entirety with utilization retroflexion displaying: Tumor(s): no suspicious bladder lesions visualized Trabeculation: NA Mucosal Erthema: NA Orifices: normal shape and position Urethra: normal Cystoscopy findings: WNL, no suspicious bladder lesions visualized [id number]-[id number] DISPOSABLE SCOPE URO-G FLEXIBLE SCOPE Procedure code (CPT) selection complete Office Meds lidocaine HCl 2 % mucosal jelly in applicator Performing Provider: Rashaun Pradhan MD [facility] Administered by: Bertha Goodrich RN on 09/02/24 15:07 Dose Route Admin Location Dispensed Lot Number Expiration Date NDC Advertising Operations Coordinator 10 mL intra-urethral 10 mL ciprofloxacin HCl 500 mg tablet Performing Provider: Rashaun Pradhan MD Per[facility] Administered by: Bertha Goodrich RN on 09/02/24 15:07 Dose Route Admin Location Dispensed Lot Number Expiration Date NDC Advertising Operations Coordinator 500 mg PO 1 tab Results AMB Urinalysis, Automated UA Leukoctes 0 Adamaris/uL Last Edit by Claudia Shankar MA on 09/02/24 15:04 UA Nitrite Negative Last Edit by Claudia Shankar MA on 09/02/24 15:04 UA Urobilinogen 0.2 mg/dL Last Edit by Claudia Shankar MA on 09/02/24 15:04 UA Protein 0 mg/dL Last Edit by Claudia Shankar MA on 09/02/24 15:04 UA pH 7.0 Last Edit by Claudia Shankar MA on 09/02/24 15:04 UA Blood 0 David/uL Last Edit by Claudia Shankar MA on 09/02/24 15:04 UA Specific [place] 1.015 Last Edit by Claudia Shankar MA on 09/02/24 15:04 UA Ketone Negative Last Edit by Claudia Shankar MA on 09/02/24 15:04 UA Bilirubin 0 mg/dL Last Edit by Claudia Shankar MA on 09/02/24 15:04 UA Glucose 0 mg/dL Last Edit by Claudia Shankar MA on 09/02/24 15:04 Results Reviewed Results Reviewed: Laboratory Last Values Urine pH (Auto) 7.0 09/02/24 15:02 Specific [place]wood (Auto) 1.015 09/02/24 15:02 Urine Protein (Auto) 0 mg/dL 09/02/24 15:02 Glucose (UA)(Auto) 0 mg/dL 09/02/24 15:02 Urine Ketones (Auto) Negative 09/02/24 15:02 Urine Blood (Auto) 0 David/uL 09/02/24 15:02 Urine Nitrite (Auto) Negative 09/02/24 15:02 Urine Bilirubin (Auto) 0 mg/dL 09/02/24 15:02 Urine Urobilinogen (Auto) 0.2 mg/dL 09/02/24 15:02 Leukocyte Esterase (Auto) 0 Adamaris/uL 09/02/24 15:02 Assessment & Plan Assessment & Plan (1) Smoker: Comment: PATIENT HAD QUIT SMOKING AT 1 TIME BUT THEN RESTARTED SMOKING AND NOW DOWN TO 5- 6 CIGARETTES A DAY. TX : COUNSELED THAT SHE MUST QUIT COMPLETELY. CONTINUE USING NICOTINE PATCH 14 MG DAILY Code(s): F17.200 - Nicotine dependence, unspecified, uncomplicated Category: Social Hx (2) Microhematuria: Code(s): R31.29 - Other microscopic hematuria Category: Medical (3) Nephrolithiasis: Code(s): N20.0 - Calculus of kidney Category: Medical (4) Mixed incontinence urge and stress: Code(s): N39.46 - Mixed incontinence Category: Medical Plan Plan - Undergo scheduled CT scan as discussed. - Management of urinary symptoms may include medication; discuss with nurse practitioner at follow-up. - Continue to avoid cigarette smoking. - Follow-up with the nurse practitioner to discuss CT results and future management. -Vesicare 10 mg daily for OAB symptoms Orders: Orders CT urogram 08/24/24 R31.29 - Other microscopic hematuria, N20.0 - Calculus of kidney, F17.200 - Nicotine dependence, unspecified, uncomplicated Blood Urea Nitrogen 09/02/24 N20.0 - Calculus of kidney, R31.29 - Other microscopic hematuria, F17.200 - Nicotine dependence, unspecified, uncomplicated AMB Urinalysis Automated 09/02/24 Z13.9 - Encounter for screening, unspecified Creatinine 09/02/24 R31.29 - Other microscopic hematuria, N20.0 - Calculus of kidney, F17.200 - Nicotine dependence, unspecified, uncomplicated AMB Cystoscopy 09/02/24 R31.29 - Other microscopic hematuria Medications: New solifenacin (Vesicare) 10 mg PO DAILY 30 tabs 1RF Discontinued tamsulosin Discontinued Reason: Patient Completed Course 0.4 mg PO BEDTIME 14 days 14 caps 0RF Patient Instructions: The patient had an opportunity to ask questions regarding treatment plan. The patient expressed understanding and agreement with the above treatment plan. The patient is aware they should contact our office by phone for worsening of their current condition or the appearance of new symptoms. Compliance is encouraged with any medications and followup testing that is ordered. It is a privilege to be allowed the opportunity to participate in the urologic care of your patient. If you have any questions or concerns regarding treatment for the above conditions please do not hesitate to contact me. The office telephone contact is [phone]. This note is constructed in part using voice recognition software. While every effort has been made to ensure accuracy information developer errors may have been included. Yours sincerely, Rashaun Pradhan MD Scribe Plan - Not visible on output: Patient was informed and verbally consented to the use of an ambient scribe for clinic note documentation during this visit. Coding Level of Care Code Est Pt Level 4 (40657) Diagnoses Smoker F17.200 Microhematuria R31.29 Nephrolithiasis N20.0 Mixed incontinence urge and stress N39.46 CPT Codes Cystoscopy - CPT: 56861-[id number] ([id number])
--- OUTSIDE RECORDS SUMMARY | 2024-09-02 17:30 | XMS_ITS | Clinical Summary ---
Author Organization Unknown Care Team Providers Care Registered Nurse Fetal Name Role Phone ALECIA DELEON, MUKESH LESTER Unavailable Unavaila isael ELLISON RN, TRAE Unavailable Unavailable Payers Payer Name Policy Type Policy Number Effective Date Expira tion Date [facility] [place] [place] [facility] [id number] MEDICAID [facility] [id number] Problems Condition Name Condition Details Condition Category [...] tablet, extended release 2023-07 00:00: 00 Yes [id number] 300 mg DAILY 300 mg DAILY (route: oral) Med Classific ation: Central Nervous System Agents clonazepam 0.5 mg disintegrat ing tablet 2023-07 00:00: 00 Yes [id number] 0.5 mg 2 TIMES DAILY 0.5 mg 2 TIMES DAILY (route: oral) Med Classific ation: Central Nervous System Agents diphenhydra mine 50 mg capsule 2023-07 00:00: 00 Yes [id number] 50 mg BEDTIME 50 mg BEDTIME (route: oral) Med Classific ation: Respirato ry Therapy Agents olanzapine 15 mg tablet 2023-07 00:00: 00 07-28 23:59 :00 No [id number] 15 mg BEDTIME 15 mg BEDTIME (route: oral) Med Classific ation: Central Nervous System Agents omeprazole 40 mg capsule,del ayed release 2023-07 00:00: 00 Yes [id number] 40 mg DAILY 40 mg DAILY (route: oral) Med Classific ation: Gastroint estinal Therapy Agents prazosin 2 mg capsule 2023-07 00:00: 00 07-28 23:59 :00 No [id number] 2 mg BEDTIME 2 mg BEDTIME (route: oral) Med Classific ation: Cardiovas cular Therapy Agents venlafaxine ER 225 mg tablet,exte nded release 24 hr 2023-07 00:00: 00 Yes [id number] 225 mg DAILY 225 mg DAILY (route: oral) Med Classific ation: Central Nervous System Agents olanzapine 20 mg tablet 07-26 00:00: 00 Yes [id number] 20 mg BEDTIME 20 mg BEDTIME (route: oral) Med Classific ation: Central Nervous System Agents prazosin 5 mg capsule 07-28 00:00: 00 Yes [id number] 5 mg BEDTIME 5 mg BEDTIME (route: oral) Med Classific ation: Cardiovas cular Therapy Agents bupropion HCl SR 150 mg tablet,12 hr sustained-r elease 08-10 00:00: 00 Yes [id number] 150 mg DAILY 150 mg DAILY (route: oral) Med Classific ation: Central Nervous System Agents Vital Signs Vital Name Observation Time Observation Value Commen ts Temperature 2024-08-30 22:00:00.000 98 [degF] Temperature 2024-08-27 16:05:00.000 98 [degF] Temperature 2024-08-23 21:14:00.000 98 [degF] Temperature 2024-08-20 18:48:00.000 98 [degF] Temperature 2024-08-13 14:13:00.000 98 [degF] Pulse 2024-08-30 22:00:00.000 78 /min Pulse 2024-08-27 16:05:00.000 77 /min Pulse 2024-08-23 21:14:00.000 71 /min Pulse 2024-08-20 18:48:00.000 86 /min Pulse 2024-08-13 14:13:00.000 78 /min Respirations 2024-08-30 22:00:00.000 14 /min Respirations 2024-08-27 16:05:00.000 13 /min Respirations 2024-08-23 21:14:00.000 14 /min Respirations 2024-08-20 18:48:00.000 12 /min Respirations 2024-08-13 14:13:00.000 14 /min Systolic Blood Pressure 2024-08-30 22:00:00.000 113 mm [Hg] Systolic Blood Pressure 2024-08-27 16:05:00.000 118 mm [Hg] Systolic Blood Pressure 2024-08-23 21:14:00.000 116 mm [Hg] Systolic Blood Pressure 2024-08-20 18:48:00.000 112 mm [Hg] Systolic Blood Pressure 2024-08-13 14:13:00.000 115 mm [Hg] Diastolic Blood Pressure 2024-08-30 22:00:00.000 74 mm [Hg] Diastolic Blood Pressure 2024-08-27 16:05:00.000 77 mm [Hg] Diastolic Blood Pressure 2024-08-23 21:14:00.000 70 mm [Hg] Diastolic Blood Pressure 2024-08-20 18:48:00.000 70 mm [Hg] Diastolic Blood Pressure 2024-08-13 14:13:00.000 70 mm [Hg] Plan of Treatment Planned Activity [...] MEDICATION PER MEDICATION LIST EVERY SN VISIT ] Future Scheduled Test SKILLED NU RSE TO O/A OF PATIENTS MENTAL/BEHAVIORAL STATUS, ASSESS VITAL SIGNS WEEKLY. ALLOW 2 PRNS FOR MEDICATION MANAGEMENT. [code = SKILLED NURSE TO O/A OF PATIENTS MENTAL/BEHAVIORAL STATUS, ASSESS VITAL SIGNS WEEKLY. ALLOW 2 PRNS FOR MEDICATION MANAGEMENT.] Future Scheduled Test MEDICATION S WILL BE HELD AND STORED IN LOCKBOX [code = MEDICATIONS WILL BE HELD AND STORED IN LOCKBOX] Future Scheduled Test SKILLED NU RSE FOR O/A OF GENERAL HEALTH STATUS OF PAIN, CARDIAC, RESPIRATORY, GASTROINTESTINAL, GENITOURINARY, SKIN, NEUROLOGIC, ENDOCRINE SYSTEMS TO IDENTIFY CHANGES ASSOCIATED WITH EXACERBATION FOR EARLY INTERVENTION OF COMPLICATIONS WEEKLY. [code = SKILLED NURSE FOR O/A OF GENERAL HEALTH STATUS OF PAIN, CARDIAC, RESPIRATORY, GASTROINTESTINAL, GENITOURINARY, SKIN, NEUROLOGIC, ENDOCRINE SYSTEMS TO IDENTIFY CHANGES ASSOCIATED WITH EXACERBATION FOR EARLY INTERVENTION OF COMPLICATIONS WEEKLY.] Future Scheduled Test SKILLED NU RSE FOR [...] RELATED TO DISCHARGE PLANNING.] Future Scheduled Test SKILLED NU RSE TO [...] SERVICES.] Future Scheduled Test SKILLED NU RSE WILL MAINTAIN SITUATIONAL AWARENESS FOR SAFETY AND WILL NOTIFY CLINICAL THEATER PROJECTIONIST AND PHYSICIAN/PROVIDER WITH ANY CHANGE IN CONDITION. [code = SKILLED NURSE WILL MAINTAIN SITUATIONAL AWARENESS FOR SAFETY AND WILL NOTIFY CLINICAL THEATER PROJECTIONIST AND PHYSICIAN/PROVIDER WITH ANY CHANGE IN CONDITION.] Goal 2024-08-09 Patient Goal - L EARN HOW TO TAKE MEDS RIGHT. Goal Patient Goal - L EARN HOW TO TAKE MEDS RIGHT. Goal Provider Goal - A PLAN OF CARE WILL BE ESTABLISHED THAT MEETS PATIENT'S SENIOR LIVING NEEDS AND INCLUDES PATIENT GOAL FOR HOME HEALTH. Goal Provider Goal - PATIENT WILL COMPLY WITH MEDICATION WHEN SKILLED NURSE PRE-POURS MEDICATION THROUGHOUT CERTIFICATION PERIOD. Goal Provider Goal - ALTERED MENTAL/BEHAVIORAL STATUS WILL BE IDENTIFIED PROMPTLY AND INTERVENTION INITIATED QUICKLY TO MINIMIZE ASSOCIATED RISKS THROUGHOUT CERTIFICATION PERIOD. Goal Provider Goal - MEDICATION WILL BE STORED IN LOCKBOX FOR SAFETY. Goal Provider Goal - CHANGE IN GENERAL HEALTH STATUS WILL BE IDENTIFIED AND REPORTED TO PHYSICIAN FOR PROMPT INTERVENTION TO MINIMIZE ASSOCIATED RISKS THROUGHOUT CERTIFICATION PERIOD. [...] DATE OF DISCHARGE. Goal Provider Goal - PSYCHOSOCIAL NEEDS WILL BE IDENTIFIED AND PLAN IMPLEMENTED TO MINIMIZE RISK THROUGHOUT CERTIFICATION PERIOD. Goal Provider Goal - PATIENT WILL REMAIN SAFE IN THE COMMUNITY AND WILL BE FREE OF DANGER TO SELF AND OTHERS THROUGHOUT THE CERTIFICATION PERIOD. Progress Notes Progress Notes <paragraph>[Visit Date: 2024 by TRAE ELLISON RN]:</paragraph><paragraph>PT STATES SHE WAS NOT IN PAIN RT [facility] TODAY. PT STATES SHE'S MED COMPLIANT. MEDS PREPOURED AND MED EDUCATION CONTINUES.</paragraph> Encounters Start Date/Time End Date/Time Encounter Type Admission Type Attending [facility] Care Facility Care Department Encounter ID Discharge Date Discharge Status Discharge Condition Discharge Reason Percent Goals Met 2024-06-11 00:00:00 2024-10-08 00:00:00 Outpatient RECERTIFIC ATTRAE ARANDA [facility] [id number] 38.10
--- OUTSIDE RECORDS SUMMARY | 2024-09-02 17:30 | XMS_ITS | Clinical Summary ---
Author Organization Unknown Care Team Providers Care Cane Furniture Maker Name Role Phone ALECIA DELEON, MUKESH LESTER Unavailable Unavaila isael ELLISON RN, TRAE Unavailable Unavailable Payers Payer Name Policy Type Policy Number Effective Date Expira tion Date [facility] [place] [place] [facility] [id number] MEDICAID [facility] [id number] Problems Condition Name Condition Details Condition Category [...] tablet, extended release 2023-07 00:00: 00 Yes [id number] 300 mg DAILY 300 mg DAILY (route: oral) Med Classific ation: Central Nervous System Agents clonazepam 0.5 mg disintegrat ing tablet 2023-07 00:00: 00 Yes [id number] 0.5 mg 2 TIMES DAILY 0.5 mg 2 TIMES DAILY (route: oral) Med Classific ation: Central Nervous System Agents diphenhydra mine 50 mg capsule 2023-07 00:00: 00 Yes [id number] 50 mg BEDTIME 50 mg BEDTIME (route: oral) Med Classific ation: Respirato ry Therapy Agents olanzapine 15 mg tablet 2023-07 00:00: 00 07-28 23:59 :00 No [id number] 15 mg BEDTIME 15 mg BEDTIME (route: oral) Med Classific ation: Central Nervous System Agents omeprazole 40 mg capsule,del ayed release 2023-07 00:00: 00 Yes [id number] 40 mg DAILY 40 mg DAILY (route: oral) Med Classific ation: Gastroint estinal Therapy Agents prazosin 2 mg capsule 2023-07 00:00: 00 07-28 23:59 :00 No [id number] 2 mg BEDTIME 2 mg BEDTIME (route: oral) Med Classific ation: Cardiovas cular Therapy Agents venlafaxine ER 225 mg tablet,exte nded release 24 hr 2023-07 00:00: 00 Yes [id number] 225 mg DAILY 225 mg DAILY (route: oral) Med Classific ation: Central Nervous System Agents olanzapine 20 mg tablet 07-26 00:00: 00 Yes [id number] 20 mg BEDTIME 20 mg BEDTIME (route: oral) Med Classific ation: Central Nervous System Agents prazosin 5 mg capsule 07-28 00:00: 00 Yes [id number] 5 mg BEDTIME 5 mg BEDTIME (route: oral) Med Classific ation: Cardiovas cular Therapy Agents bupropion HCl SR 150 mg tablet,12 hr sustained-r elease 08-10 00:00: 00 Yes [id number] 150 mg DAILY 150 mg DAILY (route: [...] AWARENESS FOR SAFETY AND WILL NOTIFY CLINICAL WATER FILTERER AND PHYSICIAN/PROVIDER WITH ANY CHANGE IN CONDITION. [code = SKILLED NURSE WILL MAINTAIN SITUATIONAL AWARENESS FOR SAFETY AND WILL NOTIFY CLINICAL WATER FILTERER AND PHYSICIAN/PROVIDER WITH ANY CHANGE IN CONDITION.] Goal 2024-08-09 Patient Goal - L EARN HOW TO TAKE MEDS RIGHT. Goal Patient Goal - L EARN HOW TO TAKE MEDS RIGHT. Goal Provider Goal - A PLAN OF CARE WILL BE ESTABLISHED THAT MEETS PATIENT'S [facility] NEEDS AND INCLUDES PATIENT GOAL FOR HOME [...] End Date/Time Encounter Type Admission Type Attending [facility] Care Department Encounter ID Discharge Date Discharge Status Discharge Condition Discharge Reason Percent Goals Met 2024-06-11 00:00:00 2024-10-08 00:00:00 Outpatient RECERTIFIC ATTRAE ARANDA [facility] [id number] 38.10
--- OUTSIDE RECORDS SUMMARY | 2024-09-02 17:30 | XMS_ITS | Clinical Summary ---
Author Organization [facility] ity Address [address] [place] [address] Care Team Providers Care I&C Technician Name Role Phone Unavailable Primary Care Provider [...] EST Narrative 06/09/2018 4:39 PM EST EXAMINATION: [phone] - MG 3D Dig Ruthann Screen Bilat w/CA [id number] Exam Date: Jun WORKING DIAGNOSIS: ?? occult [...] Note Jalil Ruelas MD - 05/30/2019 EXAMINATION: [id number] - MG 3D Dig Ruthann Screen Bilat w/CA [id number] Exam Date: Jun 09 2018 WORKING DIAGNOSIS: [...] for the next mammogram. us Pallavi Wang HAND SCUDDER IMG BI PROCEDURES Final R esult * Pap smear (10/31/2017 11:51 AM EDT) Case Results [facility] [address] [place] [address] CYTOPATHOLOGY REPORT Patient Name: EDA ROLLINS : 1970 Location: [facility] Case #: ??[id number] Procedure Date: 10/31/2017 Received: 10/31/2017 Reported: 11/05/2017 [...]
== END 2024-09-02 15:29 | disposition home or self-care (01) ==
PROVIDERS: PCP Internal Medicine; Visit Provider Urology
DX: F17.200 Nicotine dependence, unspecified, uncomplicated (principal); R31.29 Other microscopic hematuria; N20.0 Calculus of kidney; N39.46 Mixed incontinence
CPT/HCPCS: 52000; 99214

== ENCOUNTER 2024-09-21 15:26 | Outpatient (REF) | payer OTHER, SELFPAY ==
--- NOTE | ~2024-09-21 | CT_ITS ---
CLINICAL HISTORY: R31.29 - Other microscopic hematuria CT abdomen and pelvis with and without contrast Comparison: None Findings: No consolidation or effusion. 2.5 cm simple right hepatic cyst is present. Additional subcentimeter left hepatic hypodensity is too small to characterize size. There is an extrarenal right renal pelvis. There is no evidence nephrolithiasis or obstructive urolithiasis. 1.2 cm simple left renal cyst is present. The gallbladder, pancreas, spleen, and bilateral adrenal glands appear within normal limits. There is no evidence of bowel obstruction. The appendix appears normal. There is no pneumoperitoneum or ascites. The urinary bladder appears normal for degree of distention. There is no adenopathy. The bones are intact. IMPRESSION: 1. No evidence of nephrolithiasis or obstructive urolithiasis. 2. 1.2 cm simple left renal cyst. This document has been electronically signed by: Bhavik Ling on 09/23/2024 08:15:27
[2024-09-21] MEDS: iohexoL 350 MG/ML 75 ML INFUS..BTL 85 ML IV (17:24)
--- OUTSIDE RECORDS SUMMARY | 2024-09-21 18:19 | XMS_ITS | Clinical Summary ---
Author Organization Unknown Care Team Providers Care Manager Account Management Name Role Phone ALECIA DELEON, MUKESH LESTER Unavailable Unavaila isael ELLISON RN, TRAE Unavailable Unavailable Payers Payer Name Policy Type Policy Number Effective Date Expira tion Date [facility] [place] [place] [facility] [id number] MEDICAID [facility] [id number] Problems Condition Name Condition Details Condition Category [...] tablet, extended release 2023-07 00:00: 00 Yes [id number] 300 mg DAILY 300 mg DAILY (route: oral) Med Classific ation: Central Nervous System Agents clonazepam 0.5 mg disintegrat ing tablet 2023-07 00:00: 00 Yes [id number] 0.5 mg 2 TIMES DAILY 0.5 mg 2 TIMES DAILY (route: oral) Med Classific ation: Central Nervous System Agents diphenhydra mine 50 mg capsule 2023-07 00:00: 00 Yes [id number] 50 mg BEDTIME 50 mg BEDTIME (route: oral) Med Classific ation: Respirato ry Therapy Agents olanzapine 15 mg tablet 2023-07 00:00: 00 07-28 23:59 :00 No [id number] 15 mg BEDTIME 15 mg BEDTIME (route: oral) Med Classific ation: Central Nervous System Agents omeprazole 40 mg capsule,del ayed release 2023-07 00:00: 00 Yes [id number] 40 mg DAILY 40 mg DAILY (route: oral) Med Classific ation: Gastroint estinal Therapy Agents prazosin 2 mg capsule 2023-07 00:00: 00 07-28 23:59 :00 No [id number] 2 mg BEDTIME 2 mg BEDTIME (route: oral) Med Classific ation: Cardiovas cular Therapy Agents venlafaxine ER 225 mg tablet,exte nded release 24 hr 2023-07 00:00: 00 Yes [id number] 225 mg DAILY 225 mg DAILY (route: oral) Med Classific ation: Central Nervous System Agents olanzapine 20 mg tablet 07-26 00:00: 00 Yes [id number] 20 mg BEDTIME 20 mg BEDTIME (route: oral) Med Classific ation: Central Nervous System Agents prazosin 5 mg capsule 07-28 00:00: 00 Yes [id number] 5 mg BEDTIME 5 mg BEDTIME (route: oral) Med Classific ation: Cardiovas cular Therapy Agents bupropion HCl SR 150 mg tablet,12 hr sustained-r elease 08-10 00:00: 00 Yes [id number] 150 mg DAILY 150 mg DAILY (route: oral) Med Classific ation: Central Nervous System Agents Vital Signs Vital Name Observation Time Observation Value Commen ts Temperature 2024-09-15 19:51:00.000 98 [degF] Temperature 2024-09-13 11:52:00.000 98 [degF] Temperature 2024-09-08 21:14:00.000 98 [degF] Temperature 2024-09-06 23:17:00.000 98 [degF] Temperature 2024-09-02 14:21:00.000 98 [degF] Temperature 2024-08-30 22:00:00.000 98 [degF] Temperature 2024-08-27 16:05:00.000 98 [degF] Temperature 2024-08-23 21:14:00.000 98 [degF] Temperature 2024-08-20 18:48:00.000 98 [degF] Temperature 2024-08-13 14:13:00.000 98 [degF] Pulse 2024-09-15 19:51:00.000 74 /min Pulse 2024-09-13 11:52:00.000 75 /min Pulse 2024-09-08 21:14:00.000 74 /min Pulse 2024-09-06 23:17:00.000 77 /min Pulse 2024-09-02 14:21:00.000 76 /min Pulse 2024-08-30 22:00:00.000 78 /min Pulse 2024-08-27 16:05:00.000 77 /min Pulse 2024-08-23 21:14:00.000 71 /min Pulse 2024-08-20 18:48:00.000 86 /min Pulse 2024-08-13 14:13:00.000 78 /min Respirations 2024-09-15 19:51:00.000 12 /min Respirations 2024-09-13 11:52:00.000 12 /min Respirations 2024-09-08 21:14:00.000 12 /min Respirations 2024-09-06 23:17:00.000 12 /min Respirations 2024-09-02 14:21:00.000 12 /min Respirations 2024-08-30 22:00:00.000 14 /min Respirations 2024-08-27 16:05:00.000 13 /min Respirations 2024-08-23 21:14:00.000 14 /min Respirations 2024-08-20 18:48:00.000 12 /min Respirations 2024-08-13 14:13:00.000 14 /min Systolic Blood Pressure 2024-09-15 19:51:00.000 118 mm [Hg] Systolic Blood Pressure 2024-09-13 11:52:00.000 116 mm [Hg] Systolic Blood Pressure 2024-09-08 21:14:00.000 125 mm [Hg] Systolic Blood Pressure 2024-09-06 23:17:00.000 114 mm [Hg] Systolic Blood Pressure 2024-09-02 14:21:00.000 120 mm [Hg] Systolic Blood Pressure 2024-08-30 22:00:00.000 113 mm [Hg] Systolic Blood Pressure 2024-08-27 16:05:00.000 118 mm [Hg] Systolic Blood Pressure 2024-08-23 21:14:00.000 116 mm [Hg] Systolic Blood Pressure 2024-08-20 18:48:00.000 112 mm [Hg] Systolic Blood Pressure 2024-08-13 14:13:00.000 115 mm [Hg] Diastolic Blood Pressure 2024-09-15 19:51:00.000 71 mm [Hg] Diastolic Blood Pressure 2024-09-13 11:52:00.000 75 mm [Hg] Diastolic Blood Pressure 2024-09-08 21:14:00.000 70 mm [Hg] Diastolic Blood Pressure 2024-09-06 23:17:00.000 67 mm [Hg] Diastolic Blood Pressure 2024-09-02 14:21:00.000 78 mm [Hg] Diastolic Blood Pressure 2024-08-30 22:00:00.000 [...] AWARENESS FOR SAFETY AND WILL NOTIFY CLINICAL DIRECTOR OF REIMBURSEMENT AND PHYSICIAN/PROVIDER WITH ANY CHANGE IN CONDITION. [code = SKILLED NURSE WILL MAINTAIN SITUATIONAL AWARENESS FOR SAFETY AND WILL NOTIFY CLINICAL DIRECTOR OF REIMBURSEMENT AND PHYSICIAN/PROVIDER WITH ANY CHANGE IN CONDITION.] Goal 2024-08-09 Patient Goal - L EARN HOW TO TAKE MEDS RIGHT. Goal Patient Goal - L EARN HOW TO TAKE MEDS RIGHT. Goal Provider Goal - A PLAN OF CARE WILL BE ESTABLISHED THAT MEETS PATIENT'S CARE HOME NEEDS AND INCLUDES PATIENT GOAL FOR [...] SELF AND OTHERS THROUGHOUT THE CERTIFICATION PERIOD. Encounters Start Date/Time End Date/Time Encounter Type Admission Type Attending [facility] Care Department Encounter ID Discharge Date Discharge Status Discharge Condition Discharge Reason Percent Goals Met 2024-06-11 00:00:00 2024-10-08 00:00:00 Outpatient RECERTIFIC ATION TRAE ELLISON [facility] [id number] 47.62
--- OUTSIDE RECORDS SUMMARY | 2024-09-21 18:19 | XMS_ITS | Clinical Summary ---
Author Organization [facility] ity Address [address] [place] [address] Care Team Providers Care Train Engineer Name Role Phone Unavailable Primary Care Provider [...] EST Narrative 06/09/2018 4:39 PM EST EXAMINATION: [id number] - MG 3D Dig Ruthann Screen Bilat w/CA [id number] Exam Date: Jun WORKING DIAGNOSIS: ?? occult [...] Note Jalil Ruelas MD - 05/30/2019 EXAMINATION: [id number] - MG 3D Dig Ruthann Screen Bilat w/CA [id number] Exam Date: Jun 09 2018 WORKING DIAGNOSIS: [...] for the next mammogram. us Pallavi Wang INSIDE SALES COORDINATOR IMG BI PROCEDURES Final R esult * Pap smear (10/31/2017 11:51 AM EDT) Case Results [facility] [address] [place] [address] CYTOPATHOLOGY REPORT Patient Name: EDA ROLLINS : 1970 Location: [facility] Case #: ??[id number] Procedure Date: 10/31/2017 Received: 10/31/2017 Reported: 11/05/2017 [...]
--- OUTSIDE RECORDS SUMMARY | 2024-09-21 18:20 | XMS_ITS | Clinical Summary ---
Author Organization Unknown Care Team Providers Care Business Area Director Name Role Phone ALECIA DELEON, MUKESH LESTER Unavailable Unavaila isael ELLISON RN, TRAE Unavailable Unavailable Payers Payer Name Policy Type Policy Number Effective Date Expira tion Date [facility] [place] [facility] [id number] MEDICAID [facility] [id number] Problems Condition Name Condition Details Condition Category [...] tablet, extended release 2023-07 00:00: 00 Yes [id number] 300 mg DAILY 300 mg DAILY (route: oral) Med Classific ation: Central Nervous System Agents clonazepam 0.5 mg disintegrat ing tablet 2023-07 00:00: 00 Yes [id number] 0.5 mg 2 TIMES DAILY 0.5 mg 2 TIMES DAILY (route: oral) Med Classific ation: Central Nervous System Agents diphenhydra mine 50 mg capsule 2023-07 00:00: 00 Yes [id number] 50 mg BEDTIME 50 mg BEDTIME (route: oral) Med Classific ation: Respirato ry Therapy Agents olanzapine 15 mg tablet 2023-07 00:00: 00 07-28 23:59 :00 No [id number] 15 mg BEDTIME 15 mg BEDTIME (route: oral) Med Classific ation: Central Nervous System Agents omeprazole 40 mg capsule,del ayed release 2023-07 00:00: 00 Yes [id number] 40 mg DAILY 40 mg DAILY (route: oral) Med Classific ation: Gastroint estinal Therapy Agents prazosin 2 mg capsule 2023-07 00:00: 00 07-28 23:59 :00 No [id number] 2 mg BEDTIME 2 mg BEDTIME (route: oral) Med Classific ation: Cardiovas cular Therapy Agents venlafaxine ER 225 mg tablet,exte nded release 24 hr 2023-07 00:00: 00 Yes [id number] 225 mg DAILY 225 mg DAILY (route: oral) Med Classific ation: Central Nervous System Agents olanzapine 20 mg tablet 07-26 00:00: 00 Yes [id number] 20 mg BEDTIME 20 mg BEDTIME (route: oral) Med Classific ation: Central Nervous System Agents prazosin 5 mg capsule 07-28 00:00: 00 Yes [id number] 5 mg BEDTIME 5 mg BEDTIME (route: oral) Med Classific ation: Cardiovas cular Therapy Agents bupropion HCl SR 150 mg tablet,12 hr sustained-r elease 08-10 00:00: 00 Yes [id number] 150 mg DAILY 150 mg DAILY (route: [...] AWARENESS FOR SAFETY AND WILL NOTIFY CLINICAL TERMINAL OPERATIONS SUPERVISOR AND PHYSICIAN/PROVIDER WITH ANY CHANGE IN CONDITION. [code = SKILLED NURSE WILL MAINTAIN SITUATIONAL AWARENESS FOR SAFETY AND WILL NOTIFY CLINICAL TERMINAL OPERATIONS SUPERVISOR AND PHYSICIAN/PROVIDER WITH ANY CHANGE IN CONDITION.] Goal 2024-08-09 Patient Goal - L EARN HOW TO TAKE MEDS RIGHT. Goal Patient Goal - L EARN HOW TO TAKE MEDS RIGHT. Goal Provider Goal - A PLAN OF CARE WILL BE ESTABLISHED THAT MEETS PATIENT'S DETENTION NEEDS AND INCLUDES PATIENT GOAL FOR HOME [...] End Date/Time Encounter Type Admission Type Attending [facility] Care Department Encounter ID Discharge Date Discharge Status Discharge Condition Discharge Reason Percent Goals Met 2024-06-11 00:00:00 2024-10-08 00:00:00 Outpatient RECERTIFIC ATION TRAE ELLISON [facility] [id number] 47.62
== END 2024-09-21 15:27 | disposition home or self-care (01) ==
LOC: HO.CT 15:26
PROVIDERS: PCP Internal Medicine; Visit Provider Nurse Practitioner Family
DX: R31.29 Other microscopic hematuria (principal); N20.0 Calculus of kidney; F17.200 Nicotine dependence, unspecified, uncomplicated
CPT/HCPCS: 74178; Q9967

== ENCOUNTER → 2024-09-21 15:28 | Outpatient (BNV) | payer OTHER, SELFPAY | PROVIDERS: PCP Internal Medicine; Visit Provider Radiology Vascular & Interventional Radiology | DX: N28.1 Cyst of kidney, acquired (principal) | CPT/HCPCS: 74178 ==

== ENCOUNTER 2024-10-14 15:31 | Outpatient (AMB) | payer OTHER, SELFPAY ==
--- NOTE | 2024-10-14 15:31 | A.OFFVIS_ITS ---
Intake Visit Reasons: 6wk follow up/CT(set) Intake Note: Patient Presents today for tele visit follow up on:Microscopic Hematuria, Flank Pain, and CT Scan Results Imaging Completed: 09/21/24 Urology Medication: None Antibiotic Allergies:None Blood Thinners: None Glazier Apprentice Required: No Accompanied by: Self / Same As Patient Allergies ibuprofen [IBUPROFEN] Allergy (Intermediate, Verified 10/14/24 15:52) STOMACH UPSET, GI upset Medication List - Last Reconciled 10/14/24 by JOANN Smith acetaminophen 1,000 mg (2 x 500 mg) PO Q6H PRN bupropion HCl XL 300 mg PO DAILY bupropion HCl XL 150 mg PO DAILY clonazepam 0.5 - 1 mg PO DAILY PRN diphenhydramine HCl (Banophen) 50 mg PO BEDTIME naproxen 500 mg PO BID 14 days olanzapine 15 mg PO BEDTIME omeprazole 40 mg PO DAILY prazosin 2 mg PO BEDTIME solifenacin (Vesicare) 10 mg PO DAILY venlafaxine ER 150 mg PO DAILY venlafaxine ER 75 mg PO DAILY HPI Comments Details: Eda is a pleasant 54-year-old female patient of Dr. Shine. She has a past medical history of nephrolithiasis, psoriasis, nicotine dependence, obstructive sleep apnea, anxiety, depression, somnolence, sciatic neuralgia, chronic GERD, lumbago, vitamin-D deficiency, hypercalcemia, and hair hyperparathyroidism. She is being followed up on today via video telehealth for history of nephrolithiasis and microscopic hematuria. Of note, during last office visit approximately 2 months ago patient had an office cystoscopy with Dr. Phu Hull for further assessment evaluation of microscopic hematuria in the setting of nicotine dependence. Cystoscopy findings: WNL, no suspicious bladder lesions visualized. However, CT urogram remain pending therefore this is reviewed with the patient today 09/28 there is no evidence of nephrolithiasis or obstructive urolithiasis. 1.2 cm simple left renal cyst is present. The urinary bladder appears normal for degree of distention. In discussion with the patient today she reports noting improvement in urge incontinence with 10 mg of VESIcare daily. She otherwise denies any bothersome urinary issues or concerns. She denies urinary urgency, urinary frequency, incontinence, nocturia, hematuria, dysuria, foul smelling urine, changes to urinary stream, flank pain, fever, and or chills. She is happy with her current voiding parameters. We discussed importance of limiting/quitting nicotine dependence for overall health and well-being. All questions were answered. She otherwise offers no other issues or concerns at this time. [facility] Medical History Acute respiratory disease Nephrolithiasis Microhematuria Psoriasis Smoker MAYKEL (obstructive sleep apnea) Anxiety and depression Former smoker, stopped smoking in distant past Multiple lung nodules on CT Upper back pain Cigarette smoker motivated to quit Somnolence Sciatica neuralgia Chronic GERD Excessive daytime sleepiness Witnessed apneic spells Loud snoring Lumbago HSV (herpes simplex virus) infection Anxiety Depression Iron deficiency anemia GERD (gastroesophageal reflux disease) Psoriatic arthritis Vitamin D deficiency Hypercalcemia Hyperparathyroidism Surgical History Hx of myringotomy Hx of tonsillectomy Hx of tubal ligation Family History Father GI disease Mother Type 2 diabetes mellitus Depressed Mental health disorder Paternal Aunt Breast CA Sister Nephrolithiasis Mental health disorder Daughter Substance use disorder Son Substance use disorder Mental health disorder Daughter Mental health disorder Brother Mental health disorder Brother Mental health disorder Brother Mental health disorder Social History Housing: Apartment Patient Tobacco Use Status: Former Tobacco user Cigarette Packs Per Day: 0.5 Cigarettes Per Day: 10 e-Cigarette/Vaping Use: Never Used service: No Current occupational status: unemployed Cognitive needs: No Hearing needs: No Vision needs: Yes Female Reproductive History Menstrual Age of Menarche: 12 Review of Systems Const All systems reviewed & are unremarkable except as noted in HPI and below Physical Exam Const General: cooperative, healthy appearing, comfortable, no acute distress, well developed, alert and awake Orientation/consciousness: patient oriented x3 Resp Effort & Inspection: normal respiratory effort and able to speak in complete sentences Neuro General: patient oriented x3 Psych Appearance: grossly normal and well kempt Mental Status: mental status grossly normal Speech and movement: Normal speech and movement present and Clear speech present Affect: normal affect Attitude: cooperative Thought process: Normal thought process present Thought content: Normal thought content present Insight: Fair insight present (Psych) Judgement: Fair judgement present (Psych) Telehealth Telehealth Telehealth Platform: Telephone Location of provider rendering services: practice address Location of patient: address on file Patient Identification confirmed using: Name, : Yes Telehealth method: video Patient verbally consented to treatment: Yes Patient verbally consented to billing insurance company: Yes Patient informed of any privacy concerns related to visit: Yes Minutes spent on Phone/Video with Pt.: 15 Results Reviewed Results Reviewed: Date of Service: 09/21/24 Procedure(s): CT urogram Findings: No consolidation or effusion. 2.5 cm simple right hepatic cyst is present. Additional subcentimeter left hepatic hypodensity is too small to characterize size. There is an extrarenal right renal pelvis. There is no evidence nephrolithiasis or obstructive urolithiasis. 1.2 cm simple left renal cyst is present. The gallbladder, pancreas, spleen, and bilateral adrenal glands appear within normal limits. There is no evidence of bowel obstruction. The appendix appears normal. There is no pneumoperitoneum or ascites. The urinary bladder appears normal for degree of distention. There is no adenopathy. The bones are intact. IMPRESSION: 1. No evidence of nephrolithiasis or obstructive urolithiasis. 2. 1.2 cm simple left renal cyst. Assessment & Plan Assessment & Plan (1) Mixed incontinence urge and stress: Code(s): N39.46 - Mixed incontinence Category: Medical (2) Microhematuria: Code(s): R31.29 - Other microscopic hematuria Category: Medical (3) Smoker: Comment: PATIENT HAD QUIT SMOKING AT 1 TIME BUT THEN RESTARTED SMOKING AND NOW DOWN TO 5- 6 CIGARETTES A DAY. TX : COUNSELED THAT SHE MUST QUIT COMPLETELY. CONTINUE USING NICOTINE PATCH 14 MG DAILY Code(s): F17.200 - Nicotine dependence, unspecified, uncomplicated Category: Social Hx (4) Renal cyst: Code(s): N28.1 - Cyst of kidney, acquired Category: Medical Plan Recent CT results reviewed with the patient today; as noted above. Patient currently denies any bothersome urinary issues or concerns. She reports be happy with current voiding parameters. Continue VESIcare; refill provided Will continue with surveillance monitoring. Discussed, educated, and stressed the importance of quitting/limiting nicotine dependence for overall health and well-being. Follow-up in 1 year; or sooner with any issues, concerns, and or questions. Medications: Changed From solifenacin (Vesicare) 10 mg PO DAILY 30 tabs 1RF To solifenacin (Vesicare) 10 mg PO DAILY 90 days 90 tabs 3RF Patient Instructions: The patient had an opportunity to ask questions regarding the treatment plan. All questions were answered. Physical exam, labs, and imaging were discussed and reviewed in detail. As well as risks, benefits, and discussion of treatment choices. No major barriers to understanding were identified. The patient expressed understanding and agreement with the above treatment plan. The patient was made aware they should contact our office by phone for worsening of their current condition, the appearance of new symptoms, or with any questions or concerns. Compliance is encouraged with any medications and follow up testing that is ordered. It is a privilege to be allowed the opportunity to participate in? your urological care.? Again, if you have any questions or concerns If you have any questions or concerns please do not hesitate to contact me. The office is [phone]. This note is constructed using voice recognition software. While every effort lopez s been made to ensure accuracy clinical geneticist errors may have been included. Yours sincerely, JOANN Smith Coding Level of Care Code Tele Est Pt Level 3 (40563) Diagnoses Mixed incontinence urge and stress N39.46 Microhematuria R31.29 Smoker F17.200 Renal cyst N28.1
--- OUTSIDE RECORDS SUMMARY | 2024-10-14 17:46 | XMS_ITS | Clinical Summary ---
Author Organization [facility] ity Address [address] [place] [address] Care Team Providers Care Leather Grainer Name Role Phone Unavailable Primary Care Provider [...] - 2023-2 5 season) 2024 Influenza Vaccine (Season Ended) 2025 HIB Vaccines Aged Out No longer eligi [...] age to complete this topic Meningococcal B Vaccine Aged Out No l onger eligible based on patient's age to complete [...] EST Narrative 06/09/2018 4:39 PM EST EXAMINATION: [phone] - MG 3D Dig Ruthann Screen Bilat w/CA [id number] Exam Date: Jun WORKING DIAGNOSIS: ?? occult [...] Note Jalil Ruelas MD - 05/30/2019 EXAMINATION: [id number] - MG 3D Dig Ruthann Screen Bilat w/CA [id number] Exam Date: Jun 09 2018 WORKING DIAGNOSIS: [...] for the next mammogram. us Pallavi Wang TAG MAKER IMG BI PROCEDURES Final R esult * Pap smear (10/31/2017 11:51 AM EDT) Case Results [facility] [address] [place] [address] CYTOPATHOLOGY REPORT Patient Name: EDA ROLLINS : 1970 Location: [facility] Case #: ??[id number] Procedure Date: 10/31/2017 Received: 10/31/2017 Reported: 11/05/2017 [...]
== END 2024-10-14 16:00 | disposition home or self-care (01) ==
LOC: HO.HUSH 15:31
PROVIDERS: PCP Internal Medicine; Visit Provider Nurse Practitioner Family
DX: N39.46 Mixed incontinence (principal); R31.29 Other microscopic hematuria; F17.200 Nicotine dependence, unspecified, uncomplicated; N28.1 Cyst of kidney, acquired
CPT/HCPCS: 99213

== ENCOUNTER 2024-10-19 09:45 | Outpatient (AMB) | payer OTHER, SELFPAY ==
[2024-10-19 10:48] VITALS: BP 110/70; PULSE 76; RESP 17; TEMP 36.6; O2SAT 99; BMI 30.1
--- NOTE | 2024-10-19 10:48 | MHC.PC.OV ---
Vital Signs 10/19/24 10:48 Height 5 ft 7 in Weight 192 lb BMI 30.1 BP 110/70 Blood Pressure Location Lt brachial Position Sitting Respiration 17 Pulse 76 Pulse Source Pulse Oximeter Temp 97.9 F Temp Source Oral Pulse Oximetry (%) 99 Oxygen Delivery Method Room Air Intake Visit Reasons: Progressive low back pain and neck pain Intake Note: Pt is here today c/o upper back to lower back pain x2mo.: No injury noted Allergies ibuprofen [IBUPROFEN] Allergy (Intermediate, Verified 10/21/24 17:01) STOMACH UPSET, GI upset Medication List - Last Reconciled 10/21/24 by Rose Shine MD acetaminophen 1,000 mg (2 x 500 mg) PO Q6H PRN bupropion HCl XL 300 mg PO DAILY bupropion HCl XL 150 mg PO DAILY clonazepam 0.5 - 1 mg PO DAILY PRN diphenhydramine HCl (Banophen) 50 mg PO BEDTIME meloxicam 15 mg PO DAILY PRN olanzapine 15 mg PO BEDTIME omeprazole 40 mg PO DAILY prazosin 2 mg PO BEDTIME solifenacin (Vesicare) 10 mg PO DAILY 90 days tizanidine 4 mg PO BEDTIME PRN venlafaxine ER 150 mg PO DAILY venlafaxine ER 75 mg PO DAILY Tobacco use date assessed: 10/19/24 Dental Screening Dental Screen Date: 10/19/24 Did you have a dental visit in the last 12 months?: No Did you have a dental problem in the last 6 months where you did not have access to dental care?: No Was dental information given to patient?: No HPI HPI Comments History of Present Illness Details 54-year-old lady here today complaining of progressive pain in posterior neck and upper back and in her lower back. She has been having intermittent episodes of lower back pain since 2020, which usually improves after taking ibuprofen, application of local heat to affected area and resting. However, patient states that she fell last year, did not go to urgent care or ER , and has been progressive pain in in her lower back, now radiating down buttocks and upper part of leg, on and off for the last several weeks. She has been taking Motrin alternating with Tylenol which has not afforded much improvement of pain pain is aggravated by sitting and standing for extended periods of time and going up and down stairs is very difficult due to the pain. Denies any accompanying urinary incontinence or stool incontinence, no numbness or weakness in lower extremities reported. [facility] Medical History (Updated 10/21/24 @ 17:10 by Rose Shine MD) Chronic low back pain with right-sided sciatica Cervicalgia Acute respiratory disease Nephrolithiasis Microhematuria Psoriasis MAYKEL (obstructive sleep apnea) Anxiety and depression Former smoker, stopped smoking in distant past Multiple lung nodules on CT Upper back pain Cigarette smoker motivated to quit Somnolence Sciatica neuralgia Chronic GERD Lumbago HSV (herpes simplex virus) infection Iron deficiency anemia GERD (gastroesophageal reflux disease) Psoriatic arthritis Vitamin D deficiency Hypercalcemia Hyperparathyroidism Surgical History Hx of myringotomy Hx of tonsillectomy Hx of tubal ligation Family History Father GI disease Mother Type 2 diabetes mellitus Depressed Mental health disorder Paternal Aunt Breast CA Sister Nephrolithiasis Mental health disorder Daughter Substance use disorder Son Substance use disorder Mental health disorder Daughter Mental health disorder Brother Mental health disorder Brother Mental health disorder Brother Mental health disorder Social History Housing: Apartment Patient Tobacco Use Status: Former Tobacco user Cigarette Packs Per Day: 0.5 Cigarettes Per Day: 10 e-Cigarette/Vaping Use: Never Used service: No Current occupational status: unemployed Cognitive needs: No Hearing needs: No Vision needs: Yes Female Reproductive History Menstrual Age of Menarche: 12 Questionnaire Thrive Questionnaire Date Thrive assessed: 01/20/24 LYNDSAY-7 AMB Questionnaire LYNDSAY-7 Date LYNDSAY - 7 assessed: 01/20/24 Source: Developed by Drs. Checo Kwong, Swati Garcia, Cleve Young and colleagues, with an educational jeromy from [employer]. Review of Systems Const All systems reviewed & are unremarkable except as noted in HPI and below Physical exam (Primary Care) Vital Signs: Last Vital Signs Temp 97.9 F 10/19/24 10:48 Pulse 76 10/19/24 10:48 Resp 17 10/19/24 10:48 BP 110/70 10/19/24 10:48 Pulse Ox 99 10/19/24 10:48 Oxygen Delivery Method Room Air 10/19/24 10:48 BMI result Body Mass Index 30.1 Tobacco/Smoking Status: Tobacco use Status Tobacco use date assessed 10/19/24 10/19/24 10:52 Patient Tobacco Use Status Former Tobacco user 10/19/24 10:52 e-Cigarette/Vaping Use Never Used 10/19/24 10:52 Thrive Assessment: Date of Thrive Assessment Date Thrive assessed 01/20/24 10/19/24 10:52 Const Nutritional Appearance: overweight Orientation/consciousness: patient oriented x3 HENMT General nose exam: Normal external nose present Mouth: Normal oral and palatal mucosa present, oropharynx normal and moist mucous membranes Neck Neck: Yes full ROM, Yes no lymphadenopathy and Yes supple Resp Effort & Inspection: normal respiratory effort and able to speak in complete sentences Auscultation: clear to auscultation bilaterally Cardio Rate: regular rate Rhythm: regular rhythm Heart sounds: S1 normal heart sound present and S2 normal heart sound present GI Palpation (GI): Soft to palpation, nontender, no guarding and no masses Auscultation: normal bowel sounds Back/Spine/Pelvis Cervical Spine: other (Prominent dorsal fat pad noted, tender to palpation) Thoracic/Lumbar Spine: Lasegue's sign positive on the right and paraspinal muscle tenderness on the right in the mid lumbar Skin General skin exam: no rashes or lesions noted Neuro General: patient oriented x3, gait normal, tone normal, moves all extremities, Normal light touch and pain sensation and no focal motor deficits Gait exam (Neuro): Antalgic gait present Extrem General: Yes no joint enlargement Coding Level of Care Code Est Pt Level 4 (46288) Diagnoses Chronic low back pain with right-sided sciatica M54.41; G89.29 Cervicalgia M54.2 Assessment & Plan Assessment & Plan (1) Chronic low back pain with right-sided sciatica: Code(s): M54.41 - Lumbago with sciatica, right side; G89.29 - Other chronic pain Category: Medical Plan: No improvement with conservative measures, e.g. taking NSAIDs, alternating with Tylenol applying moist heat to affected area. Ordered MRI of lumbar spine without contrast for further evaluation manage. Prescription sent for meloxicam 15 mg to take once a day as needed for pain, do not take ibuprofen or any other NSAIDs with the medication, prescription also sent for tizanidine 4 mg per tablet to take 1 tablet at bedtime as needed for painful muscle spasm (2) Cervicalgia: Code(s): M54.2 - Cervicalgia Category: Medical Plan: X-ray of cervical spine ordered Orders: Orders XR cervical spine w flex/ext 10/19/24 M54.2 - Cervicalgia MR lumbar spine wo con 10/19/24 G89.29 - Other chronic pain, M54.41 - Lumbago with sciatica, right side, Z91.81 - History of falling Medications: New meloxicam 15 mg PO DAILY PRN 30 tabs 0RF Low back pain tizanidine 4 mg PO BEDTIME PRN 30 tabs 0RF muscle spasticity
--- OUTSIDE RECORDS SUMMARY | 2024-10-19 11:06 | XMS_ITS | Clinical Summary ---
Author Organization [facility] Address [address] [place] [address] Care Team Providers Care Sand Molder Name Role Phone Unavailable Primary Care Provider [...] EST Narrative 06/09/2018 4:39 PM EST EXAMINATION: [phone] - MG 3D Dig Ruthann Screen Bilat w/CA [id number] Exam Date: Jun WORKING DIAGNOSIS: ?? occult [...] Note Jalil Ruelas MD - 05/30/2019 EXAMINATION: [phone] - MG 3D Dig Ruthann Screen Bilat w/CA [id number] Exam Date: Jun 09 2018 WORKING DIAGNOSIS: [...] for the next mammogram. us Pallavi Wang PLASTIC PARTS FABRICATOR IMG BI PROCEDURES Final R esult * Pap smear (10/31/2017 11:51 AM EDT) Case Results [facility] [address] [place] [address] CYTOPATHOLOGY REPORT Patient Name: EDA ROLLINS : 1970 Location: [facility] Case #: ??[id number] Procedure Date: 10/31/2017 Received: 10/31/2017 Reported: 11/05/2017 [...]
== END 2024-10-19 11:18 | disposition home or self-care (01) ==
PROVIDERS: PCP Internal Medicine; Visit Provider Internal Medicine
DX: M54.41 Lumbago with sciatica, right side (principal); G89.29 Other chronic pain; M54.2 Cervicalgia

== ENCOUNTER 2024-10-19 09:45 | Outpatient (REF) | payer OTHER, SELFPAY ==
--- NOTE | ~2024-10-19 | XR_ITS ---
EXAMINATION: XR CERVICAL SPINE CLINICAL INFORMATION: M54.2 - Cervicalgia COMPARISON: None available. TECHNIQUE: 4 views of the cervical spine, inclusive of flexion and extension views, were obtained. FINDINGS: Reversal of the normal lordosis centered at C4. Subtle levoconvex scoliosis. No subluxations. No fracture, compression deformity, or suspicious bone lesion. C1-2 articulation and craniocervical junction are intact and aligned. Normal facet alignment. Disc spaces appear normal. No bony neural foraminal narrowing on either side. The pre and paravertebral soft tissues are normal. The lung apices are clear. XR/XR cervical spine w flex/ext IMPRESSION: 1. Mild reversal of the normal lordosis with minimal levoconvex scoliosis. 2. No evidence of instability on flexion and extension views. Electronically signed by: Jose G Hunter MD 10/20/2024 02:29 PM EDT
--- OUTSIDE RECORDS SUMMARY | 2024-10-19 14:04 | XMS_ITS | Clinical Summary ---
Author Organization [facility]y Address [address] [place] [address] Care Team Providers Care Router Machine Operator Name Role Phone Unavailable Primary Care Provider [...] EST Narrative 06/09/2018 4:39 PM EST EXAMINATION: [id number] - MG 3D Dig Ruthann Screen Bilat w/CA [id number] Exam Date: Jun WORKING DIAGNOSIS: ?? occult [...] Note Jalil Ruelas MD - 05/30/2019 EXAMINATION: [id number] - MG 3D Dig Ruthann Screen Bilat w/CA [id number] Exam Date: Jun 09 2018 WORKING DIAGNOSIS: [...] for the next mammogram. us Pallavi Wang CAFE COOK IMG BI PROCEDURES Final R esult * Pap smear (10/31/2017 11:51 AM EDT) Case Results [facility] [address] [place] [address] CYTOPATHOLOGY REPORT Patient Name: EDA ROLLINS : 1970 Location: [facility] Case #: ??[id number] Procedure Date: 10/31/2017 Received: 10/31/2017 Reported: 11/05/2017 [...]
== END 2024-10-19 09:46 | disposition home or self-care (01) ==
LOC: HO.HMGCX 09:45
PROVIDERS: PCP Internal Medicine; Visit Provider Internal Medicine
DX: M54.2 Cervicalgia (principal); M54.41 Lumbago with sciatica, right side; G89.29 Other chronic pain
CPT/HCPCS: 72052; 99212

== ENCOUNTER → 2024-10-19 11:26 | Outpatient (BNV) | payer OTHER, SELFPAY | PROVIDERS: PCP Internal Medicine; Visit Provider Radiology Diagnostic Radiology | DX: M54.2 Cervicalgia (principal) | CPT/HCPCS: 72052 ==

== ENCOUNTER 2025-01-21 11:38 | Outpatient (AMB) | payer OTHER, SELFPAY ==
[2025-01-21 11:41] VITALS: BP 118/78; PULSE 97; TEMP 36.8; O2SAT 96; BMI 30.2
--- NOTE | 2025-01-21 11:41 | AM.OFFWIN_ITS ---
Intake Vital Signs 01/21/25 11:41 Height 5 ft 7 in Weight 193 lb BMI 30.2 BP 118/78 Blood Pressure Location Lt brachial Position Sitting Pulse 97 Pulse Source Pulse Oximeter Temp 98.3 F Temp Source Oral Pulse Oximetry (%) 96 Oxygen Delivery Method Room Air Intake Visit Reasons: EP severe throat pain Intake Note: presents with severe throat pain, swelling and pain with swallowing for a few days Patient Tobacco Use Status: Former Tobacco user Allergies ibuprofen (IBUPROFEN) Allergy (Intermediate, Verified 01/21/25 11:46) STOMACH UPSET, GI upset Do you need a note to return to daycare/school/sports/work: No HPI EP severe throat pain HPI Details This is a 54-year-old female patient presents to the walk-in clinic today with report of a 3-4 day history of severe throat pain. She states it feels like she is swallowing glass . Has had some body aches. Denies fever. Denies any known exposure to sick contacts. [facility] Medical History Chronic low back pain with right-sided sciatica Cervicalgia Acute respiratory disease Nephrolithiasis Microhematuria Psoriasis MAYKEL (obstructive sleep apnea) Anxiety and depression Former smoker, stopped smoking in distant past Multiple lung nodules on CT Upper back pain Cigarette smoker motivated to quit Somnolence Sciatica neuralgia Chronic GERD Lumbago HSV (herpes simplex virus) infection Iron deficiency anemia GERD (gastroesophageal reflux disease) Psoriatic arthritis Vitamin D deficiency Hypercalcemia Hyperparathyroidism Surgical History Hx of myringotomy Hx of tonsillectomy Hx of tubal ligation Family History Father GI disease Mother Type 2 diabetes mellitus Depressed Mental health disorder Paternal Aunt Breast CA Sister Nephrolithiasis Mental health disorder Daughter Substance use disorder Son Substance use disorder Mental health disorder Daughter Mental health disorder Brother Mental health disorder Brother Mental health disorder Brother Mental health disorder Social History Housing: Apartment Patient Tobacco Use Status: Former Tobacco user Cigarette Packs Per Day: 0.5 Cigarettes Per Day: 10 e-Cigarette/Vaping Use: Never Used service: No Current occupational status: unemployed Cognitive needs: No Hearing needs: No Vision needs: Yes Female Reproductive History Menstrual Age of Menarche: 12 Review of Systems Const All systems reviewed & are unremarkable except as noted in HPI and below Physical Exam Vital Signs: Last Vital Signs Temp 98.3 F 01/21/25 11:41 Pulse 97 01/21/25 11:41 BP 118/78 01/21/25 11:41 Pulse Ox 96 01/21/25 11:41 Oxygen Delivery Method Room Air 01/21/25 11:41 BMI result Body Mass Index 30.2 Const General: cooperative and no acute distress HEENT Head: Yes normal to inspection Ears: hearing grossly normal bilaterally Face and sinus: Yes normal facial exam Mouth: Normal oral and palatal mucosa present Throat: Yes posterior oropharynx abnormal (Erythematous, tonsillar hypertrophy and exudate) Resp Effort & Inspection: normal respiratory effort Auscultation: clear to auscultation bilaterally Cardio Rate: regular rate Rhythm: regular rhythm Skin General skin exam: no rashes or lesions noted Extrem General: Yes capillary refill normal and Yes no clubbing, cyanosis or edema Psych Appearance: grossly normal Mental Status: mental status grossly normal Speech and movement: Normal speech and movement present Assessment & Plan Assessment & Plan (1) Acute pharyngitis: Code(s): J02.9 - Acute pharyngitis, unspecified Qualifiers: Pharyngitis/tonsillitis etiology: unspecified etiology Qualified Code(s): J02.9 - Acute pharyngitis, unspecified Plan: Will treat for strep due to clinical presentation. Patient requesting liquid medication, which I have sent (amoxicillin). We reviewed indications, use, possible side effects of medication. She can utilize Tylenol/Motrin, throat lozenges/drops as needed. If she does not improve with treatment, she can return to the clinic for further evaluation. All questions were answered and patient verbalizes understanding and agrees to plan. Medications: New amoxicillin 500 mg (10 mL) PO BID 140 mL 0RF 7 days J02.9 - Acute pharyngitis, unspecified Coding Level of Care Code Est Pt Level 4 (16789) Diagnoses Acute pharyngitis, unspecified etiology J02.9 Pharyngitis/tonsillitis etiology: unspecified etiology
--- OUTSIDE RECORDS SUMMARY | 2025-01-21 12:00 | XMS_ITS | Clinical Summary ---
Author Organization [facility] ity Address [address] [place] [address] Care Team Providers Care Seafood And Service Meat Manager Name Role Phone Unavailable Primary Care Provider [...] 2023-2 5 season) 2024 Influenza Vaccine (#1) 2025 HIB Vaccines Aged Out No longer [...] EST Narrative 06/09/2018 4:39 PM EST EXAMINATION: [phone] - MG 3D Dig Ruthann Screen Bilat w/CA [id number] Exam Date: Jun 09 2018 WORKING DIAGNOSIS: [...] Note Jalil Ruelas MD - 05/30/2019 EXAMINATION: [phone] - MG 3D Dig Ruthann Screen Bilat w/CA [id number] Exam Date: Jun 09 2018 WORKING DIAGNOSIS: [...] for the next mammogram. us Pallavi Wang DJANGO DEVELOPER IMG BI PROCEDURES Final R esult * Pap smear (10/31/2017 11:51 AM EDT) Case Results [facility] [address] [place] [address] CYTOPATHOLOGY REPORT Patient Name: EDA ROLLINS : 1970 Location: [facility] Case #: [id number] Procedure Date: 10/31/2017 Received: 10/31/2017 Reported: 11/05/2017 13:29 Submitted By: ZOEY MAGUIRE Copy To: Specimens Submitted: THINPREP PAP TEST (SCREENING) Diagnosis: Negative for intraepithelial lesion or malignancy Specimen Adequacy: Satisfactory for evaluation Endocervical/ transformation zone component absent. Gela VELÁZQUEZ(ASCP) Document reviewed and electronically signed Clinical History: Date of Last Menstrual Period: 3 months Other Clinical Conditions: Source: Cervical/Endocervi delgado ICD-9: A: V76.2 Ref Codes: A: 142 HISTORICAL TESTING LAB RESULTING AGENCY 10/31/2017 11:5 1 AM EDT us Zoey Maguire DO LAB CYTOLOGY ORDERABLES Final R esult HISTORICAL TESTING LAB RESULTING AGENCY from Last 3 Months or Most Recently Relevant to Health Maintenance
--- OUTSIDE RECORDS SUMMARY | 2025-02-04 20:00 | XMS_ITS | Clinical Summary ---
Author Organization Unknown Care Team Providers Care Woodworking Machine Operator Name Role Phone ALECIA DELEON, MUKESH LESTER Unavailable Unavaila isael ELLISON RN, TRAE Unavailable Unavailable Payers Payer Name Policy Type Policy Number Effective Date Expira tion Date [facility] [place] [place] [facility] [id number] MEDICAID [facility] [id number] Problems Condition Name Condition Details Condition Category [...] tablet, extended release 2023-07 00:00: 00 Yes [id number] 300 mg DAILY 300 mg DAILY (route: oral) Med Classific ation: Central Nervous System Agents clonazepam 0.5 mg disintegrat ing tablet 2023-07 00:00: 00 Yes [id number] 0.5 mg 2 TIMES DAILY 0.5 mg 2 TIMES DAILY (route: oral) Med Classific ation: Central Nervous System Agents diphenhydra mine 50 mg capsule 2023-07 00:00: 00 09-22 23:59 :00 No [id number] 50 mg BEDTIME 50 mg BEDTIME (route: oral) Med Classific ation: Respirato ry Therapy Agents olanzapine 15 mg tablet 2023-07 00:00: 00 07-28 23:59 :00 No [id number] 15 mg BEDTIME 15 mg BEDTIME (route: oral) Med Classific ation: Central Nervous System Agents omeprazole 40 mg capsule,del ayed release 2023-07 00:00: 00 Yes [id number] 40 mg DAILY 40 mg DAILY (route: oral) Med Classific ation: Gastroint estinal Therapy Agents prazosin 2 mg capsule 2023-07 2 00:00: 00 07-28 23:59 :00 No [id number] 2 mg BEDTIME 2 mg BEDTIME (route: oral) Med Classific ation: Cardiovas cular Therapy Agents venlafaxine ER 225 mg tablet,exte nded release 24 hr 2023-07 00:00: 00 Yes [id number] 225 mg DAILY 225 mg DAILY (route: oral) Med Classific ation: Central Nervous System Agents olanzapine 20 mg tablet 1-20 00:00: 00 Yes [id number] 20 mg BEDTIME 20 mg BEDTIME (route: oral) Med Classific ation: Central Nervous System Agents prazosin 5 mg capsule - 00:00: 00 Yes [id number] 5 mg BEDTIME 5 mg BEDTIME (route: oral) Med Classific ation: Cardiovas cular Therapy Agents bupropion HCl SR 150 mg tablet,12 hr sustained-r elease 2-04 00:00: 00 Yes [id number] 150 mg DAILY 150 mg DAILY (route: oral) Med Classific ation: Central Nervous System Agents diphenhydra mine 50 mg capsule 3-19 00:00: 00 12-28 23:59 :00 No [id number] 2 capsule BEDTIME 2 capsule BEDTIME (route: oral) Med Classific ation: Respirato ry Therapy Agents cholecalcif darlyn (vitamin D3) 50 mcg (2,000 unit) disintegrat ing tablet 12-28 00:00: 00 Yes [id number] 1 tablet DAILY 1 tablet DAILY (route: oral) Med Classific ation: Electroly te Balance-N utritiona l Products diphenhydra mine 50 mg tablet 12-28 00:00: 00 Yes [id number] 50 mg NEEDED 50 mg NEEDED (route: oral) Med Classific ation: Central Nervous System Agents olanzapine 10 mg tablet 24 00:00: 00 Yes [id number] 10 mg DAILY 10 mg DAILY (route: oral) Med Classific ation: Central Nervous System Agents oxybutynin chloride ER 10 mg tablet,exte nded release 24 hr 12-28 00:00: 00 Yes [id number] 10 mg DAILY 10 mg DAILY (route: oral) Med Classific ation: Genitouri nary Therapy solifenacin 10 mg tablet 12-28 00:00: 00 01-14 23:59 :00 No [id number] 10 mg DAILY 10 mg DAILY (route: oral) Med Classific ation: Genitouri nary Therapy Vital Signs Vital Name Observation Time Observation Value Commen ts Temperature 2025-01-17 12:06:00.000 98 [degF] Temperature 2025-01-14 22:18:00.000 98 [degF] Temperature 2025-01-10 12:08:00.000 98 [degF] Temperature 2025-01-03 10:11:00.000 98 [degF] Temperature 2024-12-29 01:02:00.000 98 [degF] Temperature 2024-12-08 22:35:00.000 98 [degF] BMI (%) 2024-12-29 01:02:00.000 28 kg/m2 Height 2024-12-29 01:02:00.000 67 [in_us] Pulse 2025-01-17 12:06:00.000 88 /min Pulse 2025-01-14 22:18:00.000 78 /min Pulse 2025-01-10 12:08:00.000 88 /min Pulse 2025-01-03 10:11:00.000 88 /min Pulse 2024-12-29 01:02:00.000 88 /min Pulse 2024-12-08 22:35:00.000 76 /min Respirations 2025-01-17 12:06:00.000 12 /min Respirations 2025-01-14 22:18:00.000 12 /min Respirations 2025-01-10 12:08:00.000 12 /min Respirations 2025-01-03 10:11:00.000 12 /min Respirations 2024-12-29 01:02:00.000 12 /min Respirations 2024-12-08 22:35:00.000 12 /min Weight (lbs) 2024-12-29 01:02:00.000 185 [lb_av] Systolic Blood Pressure 2025-01-17 12:06:00.000 119 mm [Hg] Systolic Blood Pressure 2025-01-14 22:18:00.000 119 mm [Hg] Systolic Blood Pressure 2025-01-10 12:08:00.000 125 mm [Hg] Systolic Blood Pressure 2025-01-03 10:11:00.000 124 mm [Hg] Systolic Blood Pressure 2024-12-29 01:02:00.000 126 mm [Hg] Systolic Blood Pressure 2024-12-08 22:35:00.000 119 mm [Hg] Diastolic Blood Pressure 2025-01-17 12:06:00.000 80 mm [Hg] Diastolic Blood Pressure 2025-01-14 22:18:00.000 78 mm [Hg] Diastolic Blood Pressure 2025-01-10 12:08:00.000 77 mm [Hg] Diastolic Blood Pressure 2025-01-03 10:11:00.000 80 mm [Hg] Diastolic Blood Pressure 2024-12-29 01:02:00.000 78 mm [Hg] Diastolic Blood Pressure 2024-12-08 22:35:00.000 78 mm [Hg] Plan of Treatment Planned Activity [...] NU RSE TO PRE-POUR MEDICATION PER MEDICATION LISTEVERY SN VISIT [code = SKILLED NURSE TO PRE-POUR MEDICATION PER MEDICATION LISTEVERY SN VISIT ] Future Scheduled Test PATIENT MA Y HAVE ONE SET OF EMERGENCY MEDICATION NOT TO BE PRE-POURED ANY SOONER THAN 24 HOURS BEFORE SEVERE INCLEMENT WEATHER OR EMERGENT EVENT AND FOLLOWING SKILLED NURSE EVALUATION OF PATIENT SAFETY. [code = PATIENT MAY HAVE ONE SET OF EMERGENCY MEDICATION NOT TO BE PRE-POURED ANY SOONER THAN 24 HOURS BEFORE SEVERE INCLEMENT WEATHER OR EMERGENT EVENT AND FOLLOWING SKILLED NURSE EVALUATION OF PATIENT SAFETY.] Future Scheduled Test SKILLED NU RSE TO [...] AWARENESS FOR SAFETY AND WILL NOTIFY CLINICAL EXPANSION JOINT FINISHER AND PHYSICIAN/PROVIDER WITH ANY CHANGE IN CONDITION. [code = SKILLED NURSE WILL MAINTAIN SITUATIONAL AWARENESS FOR SAFETY AND WILL NOTIFY CLINICAL EXPANSION JOINT FINISHER AND PHYSICIAN/PROVIDER WITH ANY CHANGE IN CONDITION.] Goal 2024-08-09 Patient Goal - L EARN HOW TO TAKE MEDS RIGHT. Goal 2024-10-04 Patient Goal - L EARN HOW TO TAKE MEDS RIGHT. Goal 2024-12-06 Patient Goal - L EARN HOW TO TAKE MEDS RIGHT Goal Patient Goal - L EARN HOW TO TAKE MEDS RIGHT Goal Provider Goal - A PLAN OF CARE WILL BE ESTABLISHED THAT MEETS PATIENT'S FDC NEEDS AND INCLUDES PATIENT GOAL FOR HOME HEALTH. Goal Provider Goal - PATIENT WILL COMPLY WITH MEDICATION WHEN SKILLED NURSE PRE-POURS MEDICATION THROUGHOUT CERTIFICATION PERIOD. Goal Provider Goal - MEDICATION WILL BE AVAILABLE DURING INCLEMENT WEATHER OR EMERGENT EVENT THROUGHOUT CERTIFICATION PERIOD. Goal Provider Goal - [...] THROUGHOUT CERTIFICATION PERIOD. Goal Provider Goal - PSYCHOSOCIAL NEEDS WILL BE IDENTIFIED AND PLAN IMPLEMENTED TO MINIMIZE RISK THROUGHOUT CERTIFICATION PERIOD. Goal Provider Goal - PATIENT WILL REMAIN SAFE IN THE COMMUNITY AND WILL BE FREE OF DANGER TO SELF AND OTHERS THROUGHOUT THE CERTIFICATION PERIOD. Progress Notes Progress Notes <paragraph>[Visit Date: 2024 by TRAE ELLISON RN]:</paragraph><paragraph>PT FEELING GOOD TODAY, BUT CO OF ROACHES IN APPT. PT STATED SHE CALLED [facility] TO HANDLE SITUATION. MED EDUCATION CONTINUES. PT VERBALIZED UNDERSTANDING. MED COMLAINT.</paragraph> Encounters Start Date/Time End Date/Time Encounter Type Admission Type Attending [facility] Facility Care Department Encounter ID Discharge Date Discharge Status Discharge Condition Discharge Reason Percent Goals Met 2024-12-08 00:00:00 2025-02-05 00:00:00 Outpatient RECERTIFIC ATION TRAE ELLISON [facility] [id number] 30.77
== END 2025-01-21 12:10 | disposition home or self-care (01) ==
PROVIDERS: PCP Internal Medicine; Visit Provider Nurse Practitioner Family
DX: J02.9 Acute pharyngitis, unspecified (principal); Z13.9 Encounter for screening, unspecified

== ENCOUNTER → 2025-01-21 11:38 | Outpatient (BNVA) | payer OTHER, SELFPAY | PROVIDERS: PCP Internal Medicine; Visit Provider Nurse Practitioner Family | DX: J02.9 Acute pharyngitis, unspecified (principal) | CPT/HCPCS: 87880; 99212 ==

== ENCOUNTER 2025-01-24 12:05 | Outpatient (AMB) | payer OTHER, SELFPAY ==
--- NOTE | 2025-01-24 12:48 | A.OFFPC_ITS ---
Vital Signs 01/24/25 12:58 Height 5 ft 7 in Weight 190 lb BMI 29.8 BP 122/70 Blood Pressure Location Rt brachial Position Sitting Respiration 16 Pulse 86 Pulse Source Pulse Oximeter Temp 98.1 F Temp Source Oral Pulse Oximetry (%) 98 Oxygen Delivery Method Room Air Intake Visit Reasons: Annual PE Intake Note: Pt is here today for her PE: Never had a colonoscopy, mammogrm 5 yrs ago Allergies ibuprofen (IBUPROFEN) Allergy (Intermediate, Verified 01/24/25 13:29) STOMACH UPSET, GI upset Medication List - Last Reconciled 01/24/25 by Rose Shine MD acetaminophen 1,000 mg (2 x 500 mg) PO Q6H PRN amoxicillin 500 mg (10 mL) PO BID 7 days bupropion HCl XL 300 mg PO DAILY bupropion HCl XL 150 mg PO DAILY clonazepam 0.5 - 1 mg PO DAILY PRN diphenhydramine HCl (Banophen) 50 mg PO BEDTIME meloxicam 15 mg PO DAILY PRN olanzapine 15 mg PO BEDTIME omeprazole 40 mg PO DAILY prazosin 5 mg PO BEDTIME solifenacin (Vesicare) 10 mg PO DAILY 90 days tizanidine 4 mg PO BEDTIME PRN venlafaxine ER 150 mg PO DAILY venlafaxine ER 75 mg PO DAILY Tobacco use date assessed: 01/24/25 Dental Screening Dental Screen Date: 01/24/25 Did you have a dental visit in the last 12 months?: No Did you have a dental problem in the last 6 months where you did not have access to dental care?: No Was dental information given to patient?: Patient declined HPI Annual PE HPI Details - The patient is a 54-year-old female pr esenting for a physical examination and management of chronic conditions. - Pharyngitis: The patient experienced s evere throat pain last week, which was not due to streptococcal infection but was noted to be red and swollen. She was prescribed antibiotics, specifically amoxicillin, which she is currently taking and reports improvement. - Gastroesophageal Reflux Disease (GERD) : The patient reports chronic heartburn and takes omeprazole daily to manage symptoms. She has a history of an upper endoscopy but does not recall the results. She experiences difficulty swallowing at times. - Depression and Anxiety: The patient is under psychiatric care and is prescribed venlafaxine, olanzapine, clonazepam, and bupropion. She reports that her depression and anxiety are controlled with this medication regimen. She also sees a therapist weekly. - Preventative Care: The patient has not had a colonoscopy despite a referral in 2020. She had a Pap smear and STD screening, but no recent mammogram. Plans are in place for a GI referral to perform both upper and lower endoscopies. [facility] Medical History (Updated 01/24/25 @ 13:48 by Rose Shine MD) Chronic heartburn Chronic low back pain with right-sided sciatica Cervicalgia Acute respiratory disease Nephrolithiasis Microhematuria Psoriasis MAYKEL (obstructive sleep apnea) Anxiety and depression Former smoker, stopped smoking in distant past Multiple lung nodules on CT Upper back pain Cigarette smoker motivated to quit Somnolence Sciatica neuralgia Lumbago HSV (herpes simplex virus) infection Iron deficiency anemia GERD (gastroesophageal reflux disease) Psoriatic arthritis Vitamin D deficiency Hypercalcemia Hyperparathyroidism Surgical History Hx of myringotomy Hx of tonsillectomy Hx of tubal ligation Family History Father GI disease Mother Type 2 diabetes mellitus Depressed Mental health disorder Paternal Aunt Breast CA Sister Nephrolithiasis Mental health disorder Daughter Substance use disorder Son Substance use disorder Mental health disorder Daughter Mental health disorder Brother Mental health disorder Brother Mental health disorder Brother Mental health disorder Social History Housing: Apartment Patient Tobacco Use Status: Former Tobacco user Cigarette Packs Per Day: 0.5 Cigarettes Per Day: 10 e-Cigarette/Vaping Use: Never Used service: No Current occupational status: unemployed Cognitive needs: No Hearing needs: No Vision needs: Yes Female Reproductive History Menstrual Age of Menarche: 12 Questionnaire PHQ-9 Over the last 2 weeks, how often have you been bothered by any of the following problems? 1. Little interest or pleasure in doing things: not at all 2. Feeling down, depressed, or hopeless: not at all 3. Trouble falling or staying asleep, or sleeping too much: more than half the days 4. Feeling tired or having little energy: several days 5. Poor appetite or overeating: several days 6. Feeling bad about yourself - or that you are a failure or have let yourself or your family down: not at all 7. Trouble concentrating on things, such as reading the newspaper or watching television: several days 8. Moving or speaking so slowly that other people could have noticed. Or the opposite - being so fidgety or restless that you have been moving around a lot more than usual: not at all 9. Thoughts that you would be better off or of hurting yourself in some way: nearly every day Total score: 8 Depression Screening Interpretation: Positive (sees andrés li at [facility] and sees therapist once a week ) Depression Screening Follow-up: Existing condition and In treatment Depression Screening Done: Yes 04892 - PHQ-9 Billing: Yes Source: Developed by Drs. Checo Kwong, Swati Garcia, Cleve Young and colleagues, with an educational jeromy from [employer]. Thrive Questionnaire Date Thrive assessed: 01/24/25 I am a: Patient What is your living situation today?: I have a place to live, but I am worried about losing it in the future Within the past 12 months, did the food you bought not last and you didn't have the money to get more?: Often true Within the past 12 months, did you worry whether your food would run out before you got money to buy more?: Often true Do you have trouble paying for medicines?: No Do you have trouble getting transportation to medical appointments?: No Do you have trouble paying your heating and electricity bill?: Yes Do you have trouble taking care of your child, family member or friend?: No Do you have trouble with day-to-day activities such as bathing, preparing meals, shopping, managing finances, etc.?: No Are you currently unemployed and looking for a job?: No Are you interested in more education?: No Please select the resources that you would like help with: Housing/Correction and Utilities Currently or been in a relationship where the following occur: No concerns reported THRIVE Score: 4 AUDIT C Alcohol Use Questionnaire (AUDIT-C) 1. How often do you have a drink containing alcohol?: Never Total Score: 0 Score Reviewed/Action Taken: Yes LYNDSAY-7 AMB Questionnaire LYNDSAY-7 Date LYNDSAY - 7 assessed: 01/24/25 Feeling nervous, anxious, or on edge: 1 = Several days Not being able to stop or control worryin = Several days Worrying too much about different things: 1 = Several days Trouble relaxin = Not at all Being so restless that it is hard to sit still: 0 = Not at all Becoming easily annoyed or irritable: 0 = Not at all Feeling afraid as if something awful might happen: 0 = Not at all Total LYNDSAY-7 score (0-4 normal; 5-9 mild; 10-14 moderate; 15-21 severe): 3 Source: Developed by Drs. Checo Kwong, Swati Garcia, Cleve Young and colleagues, with an educational jeromy from [employer]. LYNDSAY-7 Assessment Billing LYNDSAY-7 Assessment Tool: LYNDSAY-7 Assessment 71051 (sees KAYLENE , Andrés Li) Review of Systems Const All systems reviewed & are unremarkable except as noted in HPI and below Eyes Reports no additional complaints ENT Reports no additional complaints Card Denies chest pain, Denies irregular heart rhythm and Denies leg edema Resp Reports as per HPI GI Reports no additional complaints Reports no additional complaints Musc Reports no additional complaints Skin/Breast Denies breast pain, Denies breast mass and Denies rash Neuro Reports no additional complaints Psych Reports as per HPI Endo Reports no additional complaints Tree/Lymph Reports no additional complaints Aller/Immun Reports no additional complaints Physical exam (Primary Care) Vital Signs: Last Vital Signs Temp 98.1 F 01/24/25 12:58 Pulse 86 01/24/25 12:58 Resp 16 01/24/25 12:58 BP 122/70 01/24/25 12:58 Pulse Ox 98 01/24/25 12:58 Oxygen Delivery Method Room Air 01/24/25 12:58 BMI result Body Mass Index 29.8 Tobacco/Smoking Status: Tobacco use Status Tobacco use date assessed 01/24/25 01/24/25 13:03 Patient Tobacco Use Status Former Tobacco user 01/24/25 12:48 e-Cigarette/Vaping Use Never Used 01/24/25 12:48 PHQ-9: PHQ-9 Score PHQ-9: Total score 19 01/30/25 01:06 Depression Screening Interpretation: Positive (sees andrés li at [facility] and sees therapist once a week ) Depression Screening Follow-up: Existing condition and In treatment Thrive Assessment: Date of Thrive Assessment Date Thrive assessed 01/24/25 01/24/25 13:03 Currently or been in a relationship where the following occur: No concerns reported Const Nutritional Appearance: overweight Orientation/consciousness: patient oriented x3 [facility] General nose exam: Normal external nose present Mouth: Normal oral and palatal mucosa present, oropharynx normal and moist mucous membranes Neck Neck: Yes full ROM, Yes no lymphadenopathy and Yes supple Resp Effort & Inspection: normal respiratory effort and able to speak in complete sentences Auscultation: clear to auscultation bilaterally Cardio Rate: regular rate Rhythm: regular rhythm Heart sounds: S1 normal heart sound present and S2 normal heart sound present GI Palpation (GI): Soft to palpation, nontender, no guarding and no masses Auscultation: normal bowel sounds Back/Spine/Pelvis Cervical Spine: other (Prominent dorsal fat pad noted, tender to palpation) Skin General skin exam: no rashes or lesions noted Neuro General: patient oriented x3, gait normal, tone normal, moves all extremities, Normal light touch and pain sensation and no focal motor deficits Extrem General: Yes no joint enlargement Psych Appearance: grossly normal and well kempt Mental Status: mental status grossly normal Speech and movement: Normal speech and movement present Affect: normal affect Coding Level of Care Code Est Pt Prev Care 40-64y(22634) Diagnoses Annual visit for general adult medical examination with abnormal findings Z. Encounter for screening for malignant neoplasm of colon Z12.11 Anxiety and depression F41.9; F32.A Chronic heartburn R12 Mixed incontinence urge and stress N39.46 MAYKEL (obstructive sleep apnea) G47.33 Hyperparathyroidism E21.3 Advance directive discussed with patient Z71.89 Additional Codes LYNDSAY-7 Assessment Billing - LYNDSAY-7 Assessment Tool: LYNDSAY-7 Assessment 37106 ([id number]) PHQ-9 - 44479 - PHQ-9 Billing: Yes ([id number]) Assessment & Plan Assessment & Plan (1) Annual visit for general adult medical examination with abnormal findings: Code(s): Z00.01 - Encounter for general adult medical examination with abnormal findings (2) Encounter for screening for malignant neoplasm of colon: Code(s): Z12.11 - Encounter for screening for malignant neoplasm of colon (3) Anxiety and depression: Comment: sees OR SCRUB TECH Code(s): F41.9 - Anxiety disorder, unspecified; F32.A - Depression, unspecified Category: Medical (4) Chronic heartburn: Code(s): R12 - Heartburn Category: Medical (5) Mixed incontinence urge and stress: Code(s): N39.46 - Mixed incontinence Category: Medical (6) MAYKEL (obstructive sleep apnea): Comment: SHE HAS MODERATELY SEVERE OBSTRUCTIVE SLEEP APNEA. 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 CURRENTLY PATIENT IS ON CPAP THERAPY. SHE IS USING IT ALMOST EVERY NIGHT, EXCEPT THAT ON SOME NIGHTS SHE FORGETS TO PUT IT ON BEFORE SHE FALLS ASLEEP. SLEEP IS BETTER, BUT DAYTIME FOR WEAKNESS AND FEELING TIRED, HE IS STILL NOT MUCH IMPROVED. THAT SEEMS TO BE DUE TO MANY OTHER FACTORS. ANYWAY SHE IS ENCOURAGED TO KEEP ON USING THE CPAP EVERY NIGHT REGULARLY. Code(s): G47.33 - Obstructive sleep apnea (adult) (pediatric) Category: Medical (7) Hyperparathyroidism: Code(s): E21.3 - Hyperparathyroidism, unspecified Category: Medical (8) Advance directive discussed with patient: Code(s): Z71.89 - Other specified counseling Plan - The patient is a 54-year-old female presenting for a physical examination and management of chronic conditions. - Pharyngitis: The patient experienced severe throat pain last week, which was not due to streptococcal infection but was noted to be red and swollen. She was prescribed antibiotics, specifically amoxicillin, which she is currently taking and reports improvement. - Gastroesophageal Reflux Disease (GERD): The patient reports chronic heartburn and takes omeprazole daily to manage symptoms. She has a history of an upper endoscopy but does not recall the results. She experiences difficulty swallowing at times. - Depression and Anxiety: The patient is under psychiatric care and is prescribed venlafaxine, olanzapine, clonazepam, and bupropion. She reports that her depression and anxiety are controlled with this medication regimen. She also sees a therapist weekly. - Preventative Care: The patient has not had a colonoscopy despite a referral in 2020. She had a Pap smear and STD screening, but no recent mammogram, ordered . A referral to OBGYN at [facility] was also ordered for her routine Pap and pelvic exam Plans are in place for a GI referral to perform both upper and lower endoscopies. Orders: Orders MM tomosynthesis screening BI 01/24/25 Rose Shine MD Z12.31 - Encounter for screening mammogram for malignant neoplasm of breast Referrals Gastroenterology Referral Rose Shine MD R12 - Heartburn, Z12.11 - Encounter for screening for malignant neoplasm of colon AIR AND HYDRONIC BALANCING TECHNICIAN Referral Rose Shine MD Z12.4 - Encounter for screening for malig nant neoplasm of cervix Gastroenterology Referral Sav Bowden, [facility]- R12 - Heartburn
[2025-01-24 12:58] VITALS: BP 122/70; PULSE 86; RESP 16; TEMP 36.7; O2SAT 98; BMI 29.8
--- OUTSIDE RECORDS SUMMARY | 2025-01-24 13:01 | XMS_ITS | Clinical Summary ---
Author Organization [facility] ity Address [address] [place] [address] Care Team Providers Care Community Educator Name Role Phone Unavailable Primary Care Provider [...] EST Narrative 06/09/2018 4:39 PM EST EXAMINATION: [phone] - MG 3D Dig Ruthann Screen Bilat w/CA [id number] Exam Date: Jun 09 2018 WORKING DIAGNOSIS: [...] Note Jalil Ruelas MD - 05/30/2019 EXAMINATION: [phone] - MG 3D Dig Ruthann Screen Bilat w/CA [id number] Exam Date: Jun 09 2018 WORKING DIAGNOSIS: [...] for the next mammogram. us Pallavi Wang DIRECTOR CALL CENTER SALES IMG BI PROCEDURES Final R esult * Pap smear (10/31/2017 11:51 AM EDT) Case Results [facility] [address] [place] [address] CYTOPATHOLOGY REPORT Patient Name: EDA ROLLINS : 1970 Location: [facility] Case #: [id number] Procedure Date: 10/31/2017 Received: 10/31/2017 Reported: 11/05/2017 [...]
== END 2025-01-24 13:48 | disposition home or self-care (01) ==
LOC: HO.HMCC 12:06
PROVIDERS: PCP Internal Medicine; Visit Provider Internal Medicine
DX: Z00.01 Encounter for general adult medical examination with abnormal findings (principal); Z12.11 Encounter for screening for malignant neoplasm of colon; F41.9 Anxiety disorder, unspecified; F32.A Depression, unspecified; R12 Heartburn; N39.46 Mixed incontinence; G47.33 Obstructive sleep apnea (adult) (pediatric); E21.3 Hyperparathyroidism, unspecified; Z71.89 Other specified counseling

== ENCOUNTER → 2025-01-24 12:05 | Outpatient (BNVA) | payer OTHER, SELFPAY | PROVIDERS: PCP Internal Medicine; Visit Provider Internal Medicine | DX: Z00.01 Encounter for general adult medical examination with abnormal findings (principal); K21.9 Gastro-esophageal reflux disease without esophagitis; F32.A Depression, unspecified; F41.9 Anxiety disorder, unspecified; R12 Heartburn; N39.46 Mixed incontinence; G47.33 Obstructive sleep apnea (adult) (pediatric); E21.3 Hyperparathyroidism, unspecified | CPT/HCPCS: 96127; 99396 ==

== ENCOUNTER 2025-01-25 10:57 | Outpatient (REF) | payer OTHER, SELFPAY ==
--- OUTSIDE RECORDS SUMMARY | 2025-01-25 12:13 | XMS_ITS | Clinical Summary ---
Author Organization [facility] ity Address [address] [place] [address] Care Team Providers Care Vice President Compliance Name Role Phone Unavailable Primary Care Provider [...] Vaccine ( - 2023-2 5 season) 2024 Depression Screening 07/07/2024 Influenza Vaccine (#1) 2025 HIB Vaccines Aged [...] EST Narrative 06/09/2018 4:39 PM EST EXAMINATION: [phone] - MG 3D Dig Ruthann Screen Bilat w/CA [id number] Exam Date: Jun 09 2018 WORKING DIAGNOSIS: [...] Note Jalil Ruelas MD - 05/30/2019 EXAMINATION: [phone] - MG 3D Dig Ruthann Screen Bilat w/CA [id number] Exam Date: Jun 09 2018 WORKING DIAGNOSIS: [...] date for the next mammogram. Pallavi Wang CLINICAL RESEARCH ASSISTANT IMG BI PROCEDURES Final R esult * Pap smear (10/31/2017 11:51 AM EDT) Case Results [facility] [address] [place] [address] CYTOPATHOLOGY REPORT Patient Name: EDA ROLLINS : 1970 Location: [facility] Case #: [id number] Procedure Date: 10/31/2017 Received: 10/31/2017 Reported: 11/05/2017 [...]
[2025-01-25 13:38] LABS: MANUAL DIFF FLAG NO
[2025-01-25 13:43] LABS: Hematocrit 38.0 % (37.0-47.0); Hemoglobin 12.6 g/dl (12.0-16.0); Imm Gran Abs Auto 0.02 X10*3/uL (0.00-0.03); Imm Gran Pct Auto 0.4 % (0.0-0.4); Lymphocytes Absolute Auto 1.6 X10*3/uL (1.2-4.9); Mean Corpuscular HGB Conc 33.2 g/dl (31.0-35.0); Mean Corpuscular Hemoglobin 28.3 pg (27.0-33.0); Mean Corpuscular Volume 85.2 fL (80.0-98.0); NRBC Abs Auto 0.000 X10*3/uL (0.0-0.012); NRBC Pct Auto 0.0 /100WBC (0.0-0.2); Platelet Count 297 X10*3/uL (160-400); Red Blood Count 4.46 X10*6/uL (4.20-5.50); White Blood Count 5.3 X10*3/uL (4.8-10.8)
[2025-01-25 14:12] LABS: Alanine Aminotransferase 15 U/L (0-31); Albumin Level 4.3 g/dL (3.5-5.0); Alkaline Phosphatase 101 U/L (39-117); Anion Gap 12 (12-20); Aspartate Amino Transferase 18 U/L (5-31); Blood Urea Nitrogen 12 mg/dL (9-16); Calcium 10.1 mg/dL (8.4-10.2); Carbon Dioxide 28 mmol/L (22-29); Chloride 108 mmol/L (96-108); Cholesterol 155 mg/dL (<200); Estimated Glomerular Filt Rate > 60; HDL Cholesterol 44 mg/dL (>40); Potassium 3.8 mmol/L (3.3-5.1); Sodium 144 mmol/L (135-145); Total Protein 7.7 g/dL (6.5-8.0); Triglycerides 45 mg/dL (<150)
--- OUTSIDE RECORDS SUMMARY | 2025-02-04 20:00 | XMS_ITS | Clinical Summary ---
Author Organization Unknown Care Team Providers Care Pickling Solution Maker Name Role Phone ALECIA DELEON, MUKESH LESTER Unavailable Unavaila isael ELLISON RN, TRAE Unavailable Unavailable Payers Payer Name Policy Type Policy Number Effective Date Expira tion Date [facility] [place] [place] [facility] [id number] MEDICAID [facility] [id number] Problems Condition Name Condition Details Condition Category [...] tablet, extended release 2023-07 00:00: 00 Yes [id number] 300 mg DAILY 300 mg DAILY (route: oral) Med Classific ation: Central Nervous System Agents clonazepam 0.5 mg disintegrat ing tablet 2023-07 00:00: 00 Yes [id number] 0.5 mg 2 TIMES DAILY 0.5 mg 2 TIMES DAILY (route: oral) Med Classific ation: Central Nervous System Agents diphenhydra mine 50 mg capsule 2023-07 00:00: 00 09-22 23:59 :00 No [id number] 50 mg BEDTIME 50 mg BEDTIME (route: oral) Med Classific ation: Respirato ry Therapy Agents olanzapine 15 mg tablet 2023-07 00:00: 00 07-28 23:59 :00 No [id number] 15 mg BEDTIME 15 mg BEDTIME (route: oral) Med Classific ation: Central Nervous System Agents omeprazole 40 mg capsule,del ayed release 2023-07 00:00: 00 Yes [id number] 40 mg DAILY 40 mg DAILY (route: oral) Med Classific ation: Gastroint estinal Therapy Agents prazosin 2 mg capsule 2023-07 2 00:00: 00 07-28 23:59 :00 No [id number] 2 mg BEDTIME 2 mg BEDTIME (route: oral) Med Classific ation: Cardiovas cular Therapy Agents venlafaxine ER 225 mg tablet,exte nded release 24 hr 2023-07 00:00: 00 Yes [id number] 225 mg DAILY 225 mg DAILY (route: oral) Med Classific ation: Central Nervous System Agents olanzapine 20 mg tablet 1-20 00:00: 00 Yes [id number] 20 mg BEDTIME 20 mg BEDTIME (route: oral) Med Classific ation: Central Nervous System Agents prazosin 5 mg capsule - 00:00: 00 Yes [id number] 5 mg BEDTIME 5 mg BEDTIME (route: oral) Med Classific ation: Cardiovas cular Therapy Agents bupropion HCl SR 150 mg tablet,12 hr sustained-r elease 2-04 00:00: 00 Yes [id number] 150 mg DAILY 150 mg DAILY (route: oral) Med Classific ation: Central Nervous System Agents diphenhydra mine 50 mg capsule 3-19 00:00: 00 12-28 23:59 :00 No [id number] 2 capsule BEDTIME 2 capsule BEDTIME (route: oral) Med Classific ation: Respirato ry Therapy Agents cholecalcif darlyn (vitamin D3) 50 mcg (2,000 unit) disintegrat ing tablet 12-28 00:00: 00 Yes [id number] 1 tablet DAILY 1 tablet DAILY (route: oral) Med Classific ation: Electroly te Balance-N utritiona l Products diphenhydra mine 50 mg tablet 12-28 00:00: 00 Yes [id number] 50 mg NEEDED 50 mg NEEDED (route: oral) Med Classific ation: Central Nervous System Agents olanzapine 10 mg tablet 24 00:00: 00 Yes [id number] 10 mg DAILY 10 mg DAILY (route: oral) Med Classific ation: Central Nervous System Agents oxybutynin chloride ER 10 mg tablet,exte nded release 24 hr 12-28 00:00: 00 Yes [id number] 10 mg DAILY 10 mg DAILY (route: oral) Med Classific ation: Genitouri nary Therapy solifenacin 10 mg tablet 12-28 00:00: 00 01-14 23:59 :00 No [id number] 10 mg DAILY 10 mg DAILY (route: oral) Med Classific ation: Genitouri nary Therapy Vital Signs Vital Name Observation Time Observation Value Commen ts Temperature 2025-01-19 10:49:00.000 98 [degF] Temperature 2025-01-17 12:06:00.000 98 [degF] Temperature 2025-01-14 22:18:00.000 98 [degF] Temperature 2025-01-10 12:08:00.000 98 [degF] Temperature 2025-01-03 10:11:00.000 98 [degF] Temperature 2024-12-29 01:02:00.000 98 [degF] Temperature 2024-12-08 22:35:00.000 98 [degF] BMI (%) 2024-12-29 01:02:00.000 28 kg/m2 Height 2024-12-29 01:02:00.000 67 [in_us] Pulse 2025-01-19 10:49:00.000 77 /min Pulse 2025-01-17 12:06:00.000 88 /min Pulse 2025-01-14 22:18:00.000 78 /min Pulse 2025-01-10 12:08:00.000 88 /min Pulse 2025-01-03 10:11:00.000 88 /min Pulse 2024-12-29 01:02:00.000 88 /min Pulse 2024-12-08 22:35:00.000 76 /min Respirations 2025-01-19 10:49:00.000 12 /min Respirations 2025-01-17 12:06:00.000 12 /min Respirations 2025-01-14 22:18:00.000 12 /min Respirations 2025-01-10 12:08:00.000 12 /min Respirations 2025-01-03 10:11:00.000 12 /min Respirations 2024-12-29 01:02:00.000 12 /min Respirations 2024-12-08 22:35:00.000 12 /min Weight (lbs) 2024-12-29 01:02:00.000 185 [lb_av] Systolic Blood Pressure 2025-01-19 10:49:00.000 131 mm [Hg] Systolic Blood Pressure 2025-01-17 12:06:00.000 119 mm [Hg] Systolic Blood Pressure 2025-01-14 22:18:00.000 119 mm [Hg] Systolic Blood Pressure 2025-01-10 12:08:00.000 125 mm [Hg] Systolic Blood Pressure 2025-01-03 10:11:00.000 124 mm [Hg] Systolic Blood Pressure 2024-12-29 01:02:00.000 126 mm [Hg] Systolic Blood Pressure 2024-12-08 22:35:00.000 119 mm [Hg] Diastolic Blood Pressure 2025-01-19 10:49:00.000 77 mm [Hg] Diastolic Blood Pressure 2025-01-17 12:06:00.000 [...] AWARENESS FOR SAFETY AND WILL NOTIFY CLINICAL BILLING AND ACCOUNTING STAFF ASSISTANT AND PHYSICIAN/PROVIDER WITH ANY CHANGE IN CONDITION. [code = SKILLED NURSE WILL MAINTAIN SITUATIONAL AWARENESS FOR SAFETY AND WILL NOTIFY CLINICAL BILLING AND ACCOUNTING STAFF ASSISTANT AND PHYSICIAN/PROVIDER WITH ANY CHANGE IN CONDITION.] [...] End Date/Time Encounter Type Admission Type Attending [facility] Care Department Encounter ID Discharge Date Discharge Status Discharge Condition Discharge Reason Percent Goals Met 2024-12-08 00:00:00 2025-02-05 00:00:00 Outpatient RECERTIFIC ATION LOLA ELLISONTAL [facility] [id number] 30.77
== END 2025-01-25 10:58 | disposition home or self-care (01) ==
LOC: HO.HMGCLDS 10:57
PROVIDERS: PCP Internal Medicine; Visit Provider Internal Medicine
DX: N20.0 Calculus of kidney (principal); E21.3 Hyperparathyroidism, unspecified; E55.9 Vitamin D deficiency, unspecified; K21.9 Gastro-esophageal reflux disease without esophagitis; R31.29 Other microscopic hematuria; Z13.220 Encounter for screening for lipoid disorders; Z13.1 Encounter for screening for diabetes mellitus
CPT/HCPCS: 36415; 80053; 80061; 82306; 85025

== ENCOUNTER 2025-03-16 12:22 | Outpatient (REF) | payer OTHER, SELFPAY ==
--- NOTE | ~2025-03-16 | MM_ITS ---
EXAMINATION: MM SCREENING DIGITAL BREAST TOMOSYNTHESIS, BILATERAL CLINICAL INFORMATION: Screening. Asymptomatic. COMPARISON: No prior images are available for comparison after 14 days waiting period. TECHNIQUE: Digital breast tomosynthesis is performed in mediolateral oblique and craniocaudal views along with computer-aided detection (CAD). Synthesized 2D images are generated from the tomosynthesis. Best possible images according technologist's notes. FINDINGS: BREAST COMPOSITION: There are scattered areas of fibroglandular density. BILATERAL BREASTS: No significant masses, suspicious calcifications or other abnormalities are seen in either breast. MM/MM tomosynthesis screening BI IMPRESSION: BILATERAL BREASTS: Negative, no mammographic evidence of malignancy. Normal interval follow-up is recommended in 12 months. ASSESSMENT: BI-RADS: Category 1: Negative RECOMMENDATION: Routine annual mammography screening. FOLLOW-UP: 1 year F/U This examination should not preclude the clinical evaluation of a suspicious palpable abnormality. This patient's information was entered into a reminder system with a target due date for their next mammogram. Electronically signed by: Sherita Hogan MD 03/31/2025 07:10 PM EDT
--- NOTE | ~2025-03-16 | XR_ITS ---
EXAMINATION: XR CHEST CLINICAL INFORMATION: R06.02 - Shortness of breath COMPARISON: September 19, 2022 TECHNIQUE: 2 views of the chest were obtained. FINDINGS: No consolidation pleural effusion or pneumothorax. Cardiac mediastinal silhouette size is normal. Mild multilevel thoracic spondylosis. XR/XR chest 2V IMPRESSION: No acute airspace disease. Electronically signed by: Edmar Jean MD 03/16/2025 01:49 PM EDT
--- OUTSIDE RECORDS SUMMARY | 2025-03-16 15:24 | XMS_ITS | Clinical Summary ---
Author Organization [facility] ity Address [address] [place] [address] Care Team Providers Care Market Development Executive Name Role Phone Unavailable Primary Care Provider [...] Cancer Screening: P ap Smear 10/31/2020 10/31/2017 Depression Screening 07/07/2024 COVID-19 Vaccine (1 - 2023-2 5 season) 2025 Influenza Vaccine (#1) 2025 HIB Vaccines Aged [...] EST Narrative 06/09/2018 4:39 PM EST EXAMINATION: [id number] - MG 3D Dig Ruthann Screen Bilat w/CA [id number] Exam Date: Jun 09 2018 WORKING DIAGNOSIS: [...] Note Jalil Ruelas MD - 05/30/2019 EXAMINATION: [phone] - MG 3D Dig Ruthann Screen Bilat w/CA [id number] Exam Date: Jun 09 2018 WORKING DIAGNOSIS: [...] 09 2018 4:37P Approved Electronically by: JALIL RULEAS MD on Jun 09 2018 4:37P The patient information was entered into a reminder system with a target due date for the next mammogram. Pallavi Wang CHOCOLATIER IMG BI PROCEDURES Final R esult * Pap smear (10/31/2017 11:51 AM EDT) Case Results [facility] [address] [place] [address] CYTOPATHOLOGY REPORT Patient Name: EDA ROLLINS : 1970 Location: [facility] Case #: [id number] Procedure Date: 10/31/2017 Received: 10/31/2017 Reported: 11/05/2017 [...]
== END 2025-03-16 12:23 | disposition home or self-care (01) ==
LOC: HO.MAMMO 12:22
PROVIDERS: PCP Internal Medicine; Referring Provider Physician Assistant; Visit Provider Internal Medicine
DX: R06.02 Shortness of breath (principal); Z79.01 Long term (current) use of anticoagulants; Z79.899 Other long term (current) drug therapy; Z12.31 Encounter for screening mammogram for malignant neoplasm of breast
CPT/HCPCS: 71046; 77063; 77067; 99212

== ENCOUNTER 2025-03-16 13:07 | Outpatient (AMB) | payer OTHER, SELFPAY ==
[2025-03-16 13:16] VITALS: BP 132/78; PULSE 82; RESP 24; TEMP 36.7; O2SAT 100; BMI 29.8
--- NOTE | 2025-03-16 13:16 | AM.OFFWIN_ITS ---
Intake Vital Signs 03/16/25 13:16 Height 5 ft 7 in Weight 190 lb BMI 29.8 BP 132/78 Blood Pressure Location Rt brachial Position Sitting Respiration 24 H Pulse 82 Pulse Source Pulse Oximeter Temp 98.0 F Temp Source Oral Pulse Oximetry (%) 100 Oxygen Delivery Method Room Air Intake Visit Reasons: EP-SOB Intake Note: pt presents with SOB, chest tightness, difficult to catch a deep breath for hours long episodes x2 wks Patient Tobacco Use Status: Former Tobacco user Allergies ibuprofen (IBUPROFEN) Allergy (Intermediate, Verified 03/16/25 13:17) STOMACH UPSET, GI upset Do you need a note to return to daycare/school/sports/work: No HPI HPI Comments History of Present Illness Details History - The patient is a 54-year-old female pr esenting with difficulty in taking deep breaths. - The issue began a little over two week s ago, with no associated pain but a sensation of inadequate breath intake. - The patient has a history of Chronic O bstructive Pulmonary Disease (COPD) diagnosed years ago, but did not follow up due to relocation. - She quit smoking last year and has not discussed COPD with her current physician. - The patient attempted using her boyfri ends albuterol inhaler, which provided no relief. - Adamantly denies feeling anxious, as t he patient is on clonazepam, bupropion, prazosin, and laxetine, and sees a therapist regularly. - The patient experienced right ankle sw elling yesterday, which has since resolved, no other leg swelling reported - Is not sure if she has had an echo and does not recall ever being diagnosed with heart failure, is not on lasix. Physical Exam General: Cooperative, healthy appearing, comfortable, no acute distress and well developed Orientation: Patient oriented x3 Limitations: No limitations Head: Normal to inspection Ears: Hearing grossly normal bilaterally Nose: Normal External nose present Face and sinus: Normal facial exam Mouth: normal, moist oral mucosa Eyes: Appearance normal, both eyes and all related structures Neck: Normal visual inspection and Yes full ROM Respiratory: Normal respiratory effort and able to speak in complete sentences. clear to auscultation bilaterally Cardiac: regular rate and rhythm, normal s1 and s2 Skin: no rashes or lesions noted Neuro: Patient oriented x3 Extremities: moving all extremities normally, no edema bilaterally [facility] Medical History Chronic heartburn Chronic low back pain with right-sided sciatica Cervicalgia Acute respiratory disease Nephrolithiasis Microhematuria Psoriasis MAYKEL (obstructive sleep apnea) Anxiety and depression Former smoker, stopped smoking in distant past Multiple lung nodules on CT Upper back pain Cigarette smoker motivated to quit Somnolence Sciatica neuralgia Lumbago HSV (herpes simplex virus) infection Iron deficiency anemia GERD (gastroesophageal reflux disease) Psoriatic arthritis Vitamin D deficiency Hypercalcemia Hyperparathyroidism Surgical History Hx of myringotomy Hx of tonsillectomy Hx of tubal ligation Family History Father GI disease Mother Type 2 diabetes mellitus Depressed Mental health disorder Paternal Aunt Breast CA Sister Nephrolithiasis Mental health disorder Daughter Substance use disorder Son Substance use disorder Mental health disorder Daughter Mental health disorder Brother Mental health disorder Brother Mental health disorder Brother Mental health disorder Social History Housing: Apartment Patient Tobacco Use Status: Former Tobacco user Cigarette Packs Per Day: 0.5 Cigarettes Per Day: 10 e-Cigarette/Vaping Use: Never Used service: No Current occupational status: unemployed Cognitive needs: No Hearing needs: No Vision needs: Yes Female Reproductive History Menstrual Age of Menarche: 12 Review of Systems Const All systems reviewed & are unremarkable except as noted in HPI and below Physical Exam Vital Signs: Last Vital Signs Temp 98.0 F 03/16/25 13:16 Pulse 82 03/16/25 13:16 Resp 24 H 03/16/25 13:16 BP 132/78 03/16/25 13:16 Pulse Ox 100 03/16/25 13:16 Oxygen Delivery Method Room Air 03/16/25 13:16 BMI result Body Mass Index 29.8 Assessment & Plan Assessment & Plan (1) Shortness of breath: Code(s): R06.02 - Shortness of breath Plan: Plan Patient was informed and verbally consented to the use of an ambient scribe for clinic note documentation during this visit SOB - Not better with albuterol inhaler, no signs of CHF although no prior echo, VSS, lung sounds clear, no leg swelling. - Will obtain a chest x-ray to rule out any underlying pulmonary issues. - Continue current medications including clonazepam, bupropion, prazosin, and venlafaxine. - Regular follow-up with a therapist is advised. - If symptoms get worse, can go to ED, otherwise follow up with PCP. Orders: Orders XR chest 2V Today R06.02 - Shortness of breath Coding Level of Care Code Est Pt Level 4 (39437) Diagnoses Shortness of breath R06.02
== END 2025-03-16 13:50 | disposition home or self-care (01) ==
PROVIDERS: PCP Internal Medicine; Visit Provider Physician Assistant
DX: R06.02 Shortness of breath (principal)

== ENCOUNTER → 2025-03-16 13:40 | Outpatient (BNV) | payer OTHER, SELFPAY | PROVIDERS: PCP Internal Medicine; Referring Provider Physician Assistant; Visit Provider Radiology Diagnostic Radiology | DX: R06.02 Shortness of breath (principal) | CPT/HCPCS: 71046 ==

== ENCOUNTER 2025-03-17 07:56 | Outpatient (AMB) | payer OTHER, SELFPAY ==
--- OUTSIDE RECORDS SUMMARY | 2025-03-17 08:03 | XMS_ITS | Clinical Summary ---
Author Organization [facility] ity Address [address] [place] [address] Care Team Providers Care Clinical Engineering Director Name Role Phone Unavailable Primary Care Provider [...] EST Narrative 06/09/2018 4:39 PM EST EXAMINATION: [phone] - MG 3D Dig Ruthann Screen Bilat w/CA [id number] Exam Date: Jun 09 2018 WORKING DIAGNOSIS: [...] Note Jalil Ruelas MD - 05/30/2019 EXAMINATION: [phone] - MG 3D Dig Ruthann Screen Bilat w/CA [id number] Exam Date: Jun 09 2018 WORKING DIAGNOSIS: [...] date for the next mammogram. Pallavi Wang MANAGER REHAB IMG BI PROCEDURES Final R esult * Pap smear (10/31/2017 11:51 AM EDT) Case Results [facility] [address] [place] [address] CYTOPATHOLOGY REPORT Patient Name: EDA ROLLINS : 1970 Location: [facility] Case #: [id number] Procedure Date: 10/31/2017 Received: 10/31/2017 Reported: 11/05/2017 [...]
[2025-03-17 08:05] VITALS: BP 114/80; PULSE 83; RESP 16; TEMP 36.5; O2SAT 100; BMI 30.7
--- NOTE | 2025-03-17 08:05 | A.OFFPC_ITS ---
Vital Signs 03/17/25 08:05 Height 5 ft 7 in Weight 196 lb BMI 30.7 BP 114/80 Blood Pressure Location Rt brachial Position Sitting Respiration 16 Pulse 83 Pulse Source Pulse Oximeter Temp 97.7 F Temp Source Oral Pulse Oximetry (%) 100 Oxygen Delivery Method Room Air Intake Visit Reasons: f/u walkin anxiety Intake Note: Pt is here today for a f/u walkin anxiety Allergies ibuprofen (IBUPROFEN) Allergy (Intermediate, Verified 03/17/25 08:26) STOMACH UPSET, GI upset Medication List - Last Reconciled 03/17/25 by Rose Shine MD acetaminophen 1,000 mg (2 x 500 mg) PO Q6H PRN bupropion HCl XL 300 mg PO DAILY bupropion HCl XL 150 mg PO DAILY cholecalciferol (vitamin D3) 1,250 mcg PO QWEEK 3 months clonazepam 0.5 - 1 mg PO DAILY PRN diphenhydramine HCl (Banophen) 50 mg PO BEDTIME meloxicam 15 mg PO DAILY PRN olanzapine 15 mg PO BEDTIME omeprazole 40 mg PO DAILY prazosin 5 mg PO BEDTIME solifenacin (Vesicare) 10 mg PO DAILY 90 days tizanidine 4 mg PO BEDTIME PRN venlafaxine ER 150 mg PO DAILY venlafaxine ER 75 mg PO DAILY Tobacco use date assessed: 03/17/25 Dental Screening Dental Screen Date: 01/24/25 HPI f/u walkin anxiety HPI Details 54-year-old lady here today for follow-u p after recent walk-in visit where she was complaining of difficulty taking a deep breath, which has been present now for the last 2 weeks. No accompanying wheezing or lightheadedness or chest pain reported. She is a former cigarette smoker with last year, was diagnosed to have COPD several years ago but did not follow-up with previous physician, was never placed on any inhalers. She tried using her boyfriend's albuterol inhaler which she states did not really help. Has history of Psoriasis, now with a pruritic rash mainly on wrist and feet, previously was being seen by dermatology who is giving her a steroid cream, the name of which she can not recall. [facility] Medical History (Updated 03/17/25 @ 08:43 by Rose Shine MD) Eczema Chronic heartburn Chronic low back pain with right-sided sciatica Cervicalgia Acute respiratory disease Nephrolithiasis Microhematuria Psoriasis MAYKEL (obstructive sleep apnea) Anxiety and depression Former smoker, stopped smoking in distant past Multiple lung nodules on CT Upper back pain Cigarette smoker motivated to quit Somnolence Sciatica neuralgia Lumbago HSV (herpes simplex virus) infection Iron deficiency anemia GERD (gastroesophageal reflux disease) Psoriatic arthritis Vitamin D deficiency Hypercalcemia Hyperparathyroidism Surgical History Hx of myringotomy Hx of tonsillectomy Hx of tubal ligation Family History Father GI disease Mother Type 2 diabetes mellitus Depressed Mental health disorder Paternal Aunt Breast CA Sister Nephrolithiasis Mental health disorder Daughter Substance use disorder Son Substance use disorder Mental health disorder Daughter Mental health disorder Brother Mental health disorder Brother Mental health disorder Brother Mental health disorder Social History Housing: Apartment Patient Tobacco Use Status: Former Tobacco user Cigarette Packs Per Day: 0.5 Cigarettes Per Day: 10 e-Cigarette/Vaping Use: Never Used service: No Current occupational status: unemployed Cognitive needs: No Hearing needs: No Vision needs: Yes Female Reproductive History Menstrual Age of Menarche: 12 Questionnaire PHQ-9 Over the last 2 weeks, how often have you been bothered by any of the following problems? 1. Little interest or pleasure in doing things: not at all 2. Feeling down, depressed, or hopeless: not at all 3. Trouble falling or staying asleep, or sleeping too much: more than half the days 4. Feeling tired or having little energy: several days 5. Poor appetite or overeating: several days 6. Feeling bad about yourself - or that you are a failure or have let yourself or your family down: not at all 7. Trouble concentrating on things, such as reading the newspaper or watching television: several days 8. Moving or speaking so slowly that other people could have noticed. Or the opposite - being so fidgety or restless that you have been moving around a lot more than usual: not at all 9. Thoughts that you would be better off or of hurting yourself in some way: not at all Total score: 5 Depression Screening Interpretation: Positive (sees andr[facility] morales at [facility] and sees therapist once a week ) Depression Screening Done: Yes Source: Developed by Drs. Checo Kwong, Swati Garcia, Cleve Young and colleagues, with an educational jeromy from [email or web address]. Thrive Questionnaire Date Thrive assessed: 01/24/25 I am a: Patient What is your living situation today?: I have a place to live, but I am worried about losing it in the future Within the past 12 months, did the food you bought not last and you didn't have the money to get more?: Often true Within the past 12 months, did you worry whether your food would run out before you got money to buy more?: Often true Do you have trouble paying for medicines?: No Do you have trouble getting transportation to medical appointments?: No Do you have trouble paying your heating and electricity bill?: Yes Do you have trouble taking care of your child, family member or friend?: No Do you have trouble with day-to-day activities such as bathing, preparing meals, shopping, managing finances, etc.?: No Are you currently unemployed and looking for a job?: No Are you interested in more education?: No Currently or been in a relationship where the following occur: No concerns reported THRIVE Score: 4 AUDIT C Alcohol Use Questionnaire (AUDIT-C) 1. How often do you have a drink containing alcohol?: Never Total Score: 0 LYNDSAY-7 AMB Questionnaire LYNDSAY-7 Date LYNDSAY - 7 assessed: 01/24/25 Feeling nervous, anxious, or on edge: 1 = Several days Not being able to stop or control worryin = Several days Worrying too much about different things: 1 = Several days Trouble relaxin = Not at all Being so restless that it is hard to sit still: 0 = Not at all Becoming easily annoyed or irritable: 0 = Not at all Feeling afraid as if something awful might happen: 0 = Not at all Total LYNDSAY-7 score (0-4 normal; 5-9 mild; 10-14 moderate; 15-21 severe): 3 Source: Developed by Swati Gonzalez Kurt Kroenke and colleagues, with an educational jeromy from [email or web address]. Review of Systems Const All systems reviewed & are unremarkable except as noted in HPI and below Musc Details: Low back pain radiating down right buttock, and back of thigh Psych Reports no additional complaints Physical exam (Primary Care) Vital Signs: Last Vital Signs Temp 97.7 F 03/17/25 08:05 Pulse 83 03/17/25 08:05 Resp 16 03/17/25 08:05 BP 114/80 03/17/25 08:05 Pulse Ox 100 03/17/25 08:05 Oxygen Delivery Method Room Air 03/17/25 08:05 BMI result Body Mass Index 30.7 Tobacco/Smoking Status: Tobacco use Status Tobacco use date assessed 03/17/25 03/17/25 08:08 Patient Tobacco Use Status Former Tobacco user 03/17/25 08:08 e-Cigarette/Vaping Use Never Used 03/17/25 08:08 PHQ-9: PHQ-9 Score PHQ-9: Total score 5 03/21/25 02:25 Depression Screening Interpretation: Positive (sees andrés morales at [facility] and sees therapist once a week ) Thrive Assessment: Date of Thrive Assessment Date Thrive assessed 01/24/25 03/17/25 08:08 Currently or been in a relationship where the following occur: No concerns reported Const Nutritional Appearance: overweight Orientation/consciousness: patient oriented x3 [facility] General nose exam: Normal external nose present Mouth: Normal oral and palatal mucosa present, oropharynx normal and moist mucous membranes Neck Neck: Yes full ROM, Yes no lymphadenopathy and Yes supple Resp Other: Tight breath sounds, no wheezing or rales heard Effort & Inspection: normal respiratory effort and able to speak in complete sentences Auscultation: clear to auscultation bilaterally Cardio Rate: regular rate Rhythm: regular rhythm Heart sounds: S1 normal heart sound present and S2 normal heart sound present GI Palpation (GI): Soft to palpation, nontender, no guarding and no masses Auscultation: normal bowel sounds Back/Spine/Pelvis Thoracic/Lumbar Spine: straight leg raise negative bilaterally and paraspinal muscle tenderness on the right in the lower lumbar Skin Other: Grayish scaly patch on ventral aspect of right wrist joint and on medial aspect of both feet Neuro General: patient oriented x3, gait normal, tone normal, moves all extremities, Normal light touch and pain sensation and no focal motor deficits Psych Appearance: grossly normal and well kempt Mental Status: mental status grossly normal Speech and movement: Normal speech and movement present Affect: normal affect Coding Level of Care Code Est Pt Level 4 (75885) Diagnoses Former smoker, stopped smoking in distant past Z87.891 Shortness of breath R06.02 Flexural eczema L20.82 Eczema type: flexural Chronic low back pain with right-sided sciatica M54.41; G89.29 Assessment & Plan Assessment & Plan (1) Former smoker, stopped smoking in distant past: Code(s): Z87.891 - Personal history of nicotine dependence Category: Social Hx Plan: Ordered PFT with methacholine challenge to check for COPD versus asthma. Empirically started on albuterol inhaler 1-2 inhalations every 6 hours as needed for episodes of shortness of breath or wheezing. Started on Symbicort 160-4.5 mcg 1122 inhalations every 12 hours. Rinse mouth after use. Follow-up after PFT done (2) Shortness of breath: Code(s): R06.02 - Shortness of breath Category: Medical Plan: Ordered PFT with methacholine challenge to check for COPD versus asthma. Empirically started on albuterol inhaler 1-2 inhalations every 6 hours as needed for episodes of shortness of breath or wheezing. Started on Symbicort 160-4.5 mcg 1122 inhalations every 12 hours. Rinse mouth after use. Follow-up after PFT done (3) Eczema: Code(s): L30.9 - Dermatitis, unspecified Category: Medical Qualifiers: Eczema type: flexural Qualified Code(s): L20.82 - Flexural eczema Plan: Prescription sent for clobetasol cream 0 point 2 5%, to be applied sparingly to affected areas on wrists and plantar aspect of both feet once or twice a day for no more than 10 days at a time, may combined this with the moisturizing cream. If no improvement will refer to Dermatology (4) Chronic low back pain with right-sided sciatica: Code(s): M54.41 - Lumbago with sciatica, right side; G89.29 - Other chronic pain Category: Medical Plan: Refilled prescription for tizanidine 4 mg per tab to take 1/2-1 tablet once a day as needed for muscle spasm Orders: Orders PFT pulmonary function test 03/17/25 R06.02 - Shortness of breath, Z87.891 - Personal history of nicotine dependence RT pft w methacholine 03/17/25 R06.02 - Shortness of breath, Z87.891 - Personal history of nicotine dependence Medications: New albuterol sulfate 90 mcg/actuation (Ventolin HFA) 2 puffs inhalation Q6H PRN 8.5 grams 2RF shortness of breath or wheezing budesonide-formoterol 160-4.5 mcg/actuation (Symbicort) Gargle after use 2 puffs inhalation Q12H 10.2 grams 3RF clobetasol 0.025% 1 appl topical DAILY 100 grams 0RF 10 days L30.9 - Dermatitis, unspecified Refilled tizanidine 4 mg PO BEDTIME PRN 30 tabs 0RF for muscle spasm
== END 2025-03-17 10:33 | disposition home or self-care (01) ==
LOC: HO.HMCC 07:57
PROVIDERS: PCP Internal Medicine; Visit Provider Internal Medicine
DX: Z87.891 Personal history of nicotine dependence (principal); R06.02 Shortness of breath; L20.82 Flexural eczema; M54.41 Lumbago with sciatica, right side; G89.29 Other chronic pain

== ENCOUNTER → 2025-03-17 07:56 | Outpatient (BNVA) | payer OTHER, SELFPAY | PROVIDERS: PCP Internal Medicine; Visit Provider Internal Medicine | DX: R06.02 Shortness of breath (principal); L20.82 Flexural eczema; M54.41 Lumbago with sciatica, right side; G89.29 Other chronic pain; Z87.891 Personal history of nicotine dependence | CPT/HCPCS: 99212 ==

== ENCOUNTER 2025-05-13 11:27 | Outpatient (REF) | payer OTHER, SELFPAY ==
[2025-05-13 20:42] LABS: Bacterial Vaginosis PCR POSITIVE (Negative); Candida Group PCR NOT DETECTED (Not Detect); Candida glab krusei PCR NOT DETECTED (Not Detect); Trichomonas vaginalis PCR NOT DETECTED (Not Detect)
== END 2025-05-13 11:28 | disposition home or self-care (01) ==
LOC: HO.LAB 11:27
PROVIDERS: PCP Internal Medicine; Visit Provider Physician Assistant
DX: N76.0 Acute vaginitis (principal)
CPT/HCPCS: 81515; 99212

== ENCOUNTER 2025-05-13 11:27 | Outpatient (AMB) | payer OTHER, SELFPAY ==
--- NOTE | 2025-05-13 11:35 | AM.OFFWIN_ITS ---
Intake Vital Signs 05/13/25 11:38 Height 5 ft 7 in Weight 192 lb BMI 30.1 BP 132/82 Blood Pressure Location Rt brachial Position Sitting Respiration 16 Pulse 86 Pulse Source Pulse Oximeter Temp 98.1 F Temp Source Oral Pulse Oximetry (%) 95 Oxygen Delivery Method Room Air Intake Visit Reasons: EP-yeast infection [phone] Intake Note: pt presents with white discharge, external itchiness, denies any foul odor, no urinary tract symptoms x3 days Patient Tobacco Use Status: Former Tobacco user Allergies ibuprofen (IBUPROFEN) Allergy (Intermediate, Verified 05/13/25 11:36) STOMACH UPSET, GI upset Do you need a note to return to daycare/school/sports/work: No HPI HPI Comments History of Present Illness Details This is a 54-year-old female presenting for evaluation of white vaginal discharge and vaginal itching that she has had for the past four days. Patient denies having any fevers, chills, dysuria, urinary frequency or dyspareunia. Patient has not used any [id number] medication for treatment of her discomfort. [facility] Medical History (Updated 05/13/25 @ 12:14 by Dayanara Marroquin PA-C) Eczema Chronic heartburn Chronic low back pain with right-sided sciatica Cervicalgia Acute respiratory disease Nephrolithiasis Microhematuria Psoriasis MAYKEL (obstructive sleep apnea) Anxiety and depression Former smoker, stopped smoking in distant past Multiple lung nodules on CT Upper back pain Cigarette smoker motivated to quit Somnolence Sciatica neuralgia Lumbago HSV (herpes simplex virus) infection Iron deficiency anemia GERD (gastroesophageal reflux disease) Psoriatic arthritis Vitamin D deficiency Hypercalcemia Hyperparathyroidism Surgical History Hx of myringotomy Hx of tonsillectomy Hx of tubal ligation Family History Father GI disease Mother Type 2 diabetes mellitus Depressed Mental health disorder Paternal Aunt Breast CA Sister Nephrolithiasis Mental health disorder Daughter Substance use disorder Son Substance use disorder Mental health disorder Daughter Mental health disorder Brother Mental health disorder Brother Mental health disorder Brother Mental health disorder Social History Housing: Apartment Patient Tobacco Use Status: Former Tobacco user Cigarette Packs Per Day: 0.5 Cigarettes Per Day: 10 e-Cigarette/Vaping Use: Never Used service: No Current occupational status: unemployed Cognitive needs: No Hearing needs: No Vision needs: Yes Female Reproductive History Menstrual Age of Menarche: 12 Review of Systems Const All systems reviewed & are unremarkable except as noted in HPI and below Denies chills and Denies fever(s) Reports genital pruritis, Denies dyspareunia, Denies dysuria, Denies pelvic pain, Denies urinary urgency, Reports vaginal discharge (White) and Reports vaginal pruritus Musc Reports no additional complaints Skin/Breast Reports system reviewed and no additional complaints, except as documented Neuro Denies confusion Psych Denies confusion Physical Exam Vital Signs: Last Vital Signs Temp 98.1 F 05/13/25 11:38 Pulse 86 05/13/25 11:38 Resp 16 05/13/25 11:38 BP 132/82 05/13/25 11:38 Pulse Ox 95 05/13/25 11:38 Oxygen Delivery Method Room Air 05/13/25 11:38 BMI result Body Mass Index 30.1 Const General: cooperative, healthy appearing, comfortable, no acute distress, well developed, alert, awake and Physically active; No confusion Nutritional Appearance: average body habitus Orientation/consciousness: patient oriented x3 and No confusion Limitations: no limitations General: Yes bladder normal to palpation External Female Exam: normal external appearance, erythema, No external swelling, No lesion, No urethral discharge, No lesion and No tender Bimanual exam- vagina & uterus: bladder normal to palpation Skin General skin exam: no rashes or lesions noted Neuro General: patient oriented x3 and No confusion Psych Appearance: grossly normal Mental Status: mental status grossly normal Insight: Good insight present (Psych) Judgement: Good judgement present (Psych) Assessment & Plan Assessment & Plan (1) Vaginitis: Comment: Urinalysis is deferred at this time and a BV panel will be obtained. Code(s): N76.0 - Acute vaginitis Qualifiers: Chronicity: acute Qualified Code(s): N76.0 - Acute vaginitis Plan: No prescription medications were prescribed at this time, patient will await the results of the BV panel. Orders: Orders 2 Bacterial Vaginosis Panel Today N76.0 - Acute vaginitis Coding Level of Care Code Est Pt Level 3 (38610) Diagnoses Acute vaginitis N76.0 Chronicity: acute Time Spent (min) 20
[2025-05-13 11:38] VITALS: BP 132/82; PULSE 86; RESP 16; TEMP 36.7; O2SAT 95; BMI 30.1
--- OUTSIDE RECORDS SUMMARY | 2025-05-13 13:48 | XMS_ITS | Clinical Summary ---
Author Organization [facility] ity Address [address] [place] [address] Care Team Providers Care Director Fundraising Name Role Phone Unavailable Primary Care Provider [...] 10/31/2020 10/31/2017 Depression Screening 07/07/2024 COVID-19 Vaccine ( - 2023-2 5 season) 2025 Influenza Vaccine (#1) 2025 RSV Immunization Adult Patie nts (1 - 1-dose 75+ series) 2045 HIB Vaccines Aged Out No longer eligi [...] EST Narrative 06/09/2018 4:39 PM EST EXAMINATION: [phone] - MG 3D Dig Ruthann Screen Bilat w/CA [id number] Exam Date: Jun 09 2018 WORKING DIAGNOSIS: [...] Note Jalil Ruelas MD - 05/30/2019 EXAMINATION: [id number] - MG 3D Dig Ruthann Screen Bilat w/CA [id number] Exam Date: Jun 09 2018 WORKING DIAGNOSIS: [...] the next mammogram. us Pallavi Wang [employer] IMG BI PROCEDURES Final R esult * Pap smear (10/31/2017 11:51 AM EDT) Case Results [facility] [address] [place] [address] CYTOPATHOLOGY REPORT Patient Name: EDA ROLLINS : 1970 Location: [facility] Case #: [id number] Procedure Date: 10/31/2017 Received: 10/31/2017 Reported: 11/05/2017 13:29 Submitted By: ZOEY MAGUIRE Copy To: Specimens Submitted: THINPREP PAP TEST (SCREENING) Diagnosis: Negative for intraepithelial lesion or malignancy Specimen Adequacy: Satisfactory for evaluation Endocervical/ transformation zone component absent. Gela Stafford CT(ASCP) Document reviewed and electronically signed Clinical History: Date of Last Menstrual Period: 3 months Other Clinical Conditions: Source: Cervical/Endocervi delgado ICD-9: A: V76.2 Ref Codes: A: 142 HISTORICAL TESTING LAB RESULTING AGENCY 10/31/2017 11:5 1 AM EDT Zoey Maguire DO LAB CYTOLOGY ORDERABLES Final R esult HISTORICAL TESTING LAB RESULTING AGENCY from Last 3 Months or Most Recently Relevant to Health Maintenance
== END 2025-05-13 12:14 | disposition home or self-care (01) ==
PROVIDERS: PCP Internal Medicine; Visit Provider Physician Assistant
DX: N76.0 Acute vaginitis (principal)

== ENCOUNTER 2025-05-24 12:45 | Outpatient (REF) | payer OTHER, SELFPAY ==
[2025-05-25 12:07] LABS: Bacterial Vaginosis PCR NEGATIVE (Negative); Candida Group PCR DETECTED (Not Detect); Candida glab krusei PCR NOT DETECTED (Not Detect); Trichomonas vaginalis PCR NOT DETECTED (Not Detect)
[2025-05-25 12:10] LABS: CT PCR Urine NOT DETECTED (Not Detect.); NG PCR Urine NOT DETECTED (Not Detect.)
== END 2025-05-24 12:46 | disposition home or self-care (01) ==
LOC: HO.LAB 12:45
PROVIDERS: Physician Assistant Medical; PCP Internal Medicine
DX: N89.8 Other specified noninflammatory disorders of vagina (principal); Z20.2 Contact with and (suspected) exposure to infections with a predominantly sexual mode of transmission; Z98.51 Tubal ligation status
CPT/HCPCS: 81003; 81515; 87086; 87491; 87591; 99212

== ENCOUNTER 2025-05-24 12:45 | Outpatient (AMB) | payer OTHER, SELFPAY ==
[2025-05-24 12:48] VITALS: BP 120/82; PULSE 69; O2SAT 99; BMI 30.1
--- NOTE | 2025-05-24 12:48 | MHC.OFFWIV ---
Intake Vital Signs 05/24/25 12:48 Height 5 ft 7 in Weight 192 lb BMI 30.1 BP 120/82 Blood Pressure Location Lt brachial Position Sitting Pulse 69 Pulse Source Pulse Oximeter Pulse Oximetry (%) 99 Oxygen Delivery Method Room Air Intake Visit Reasons: EP vaginal itching discharge and pain Intake Note: Patient returns c/o no improvement despite only having 2 days left of Flagyl. Discomfort, itching, discharge is still present Urine presents as brownish. Patient Tobacco Use Status: Former Tobacco user Allergies ibuprofen (IBUPROFEN) Allergy (Intermediate, Verified 05/24/25 12:51) STOMACH UPSET, GI upset HPI HPI Comments History of Present Illness Details History of Present Illness - The patient is a 54-year-old female presenting with symptoms of bacterial vaginosis. - She was seen here on 05/13 for the same and given antibiotics on 05/16, which she started. - Persistent symptoms include odor, itching, burning, and slight discharge despite nearly completing the metronidazole course. - The patient has not engaged in sexual intercourse since starting the medication. - Reports of dark urine and a history of similar symptoms that resolved spontaneously. - She has a vaginal itch and no blood. - She denies fever, chills, back pain, CP, SOB, dysuria or hematuria. Physical Exam General: Cooperative, healthy appearing, comfortable, no acute distress and well developed Orientation: Patient oriented x3 Limitations: No limitations Respiratory: Normal respiratory effort and able to speak in complete sentences. Clear to auscultation bilaterally Cardiovascular: Regular rate and rhythm. Normal S1 and S2 GI: Normal to inspection. Soft to palpation and nontender. No guarding or rebound tenderness noted. : Negative CVA tenderness. Skin: No rashes or lesions noted Patient was informed and verbally consented to the use of an ambient scribe for clinic note documentation during this visit. [facility] Medical History (Updated 05/13/25 @ 12:14 by Dayanara Marroquin PA-C) Eczema Chronic heartburn Chronic low back pain with right-sided sciatica Cervicalgia Acute respiratory disease Nephrolithiasis Microhematuria Psoriasis MAYKEL (obstructive sleep apnea) Anxiety and depression Former smoker, stopped smoking in distant past Multiple lung nodules on CT Upper back pain Cigarette smoker motivated to quit Somnolence Sciatica neuralgia Lumbago HSV (herpes simplex virus) infection Iron deficiency anemia GERD (gastroesophageal reflux disease) Psoriatic arthritis Vitamin D deficiency Hypercalcemia Hyperparathyroidism Surgical History Hx of myringotomy Hx of tonsillectomy Hx of tubal ligation Family History Father GI disease Mother Type 2 diabetes mellitus Depressed Mental health disorder Paternal Aunt Breast CA Sister Nephrolithiasis Mental health disorder Daughter Substance use disorder Son Substance use disorder Mental health disorder Daughter Mental health disorder Brother Mental health disorder Brother Mental health disorder Brother Mental health disorder Social History Housing: Apartment Patient Tobacco Use Status: Former Tobacco user Cigarette Packs Per Day: 0.5 Cigarettes Per Day: 10 e-Cigarette/Vaping Use: Never Used service: No Current occupational status: unemployed Cognitive needs: No Hearing needs: No Vision needs: Yes Female Reproductive History Menstrual Age of Menarche: 12 Review of Systems Const All systems reviewed & are unremarkable except as noted in HPI and below Physical Exam Vital Signs: Last Vital Signs Pulse 69 05/24/25 12:48 BP 120/82 05/24/25 12:48 Pulse Ox 99 05/24/25 12:48 Oxygen Delivery Method Room Air 05/24/25 12:48 BMI result Body Mass Index 30.1 Results AMB Urinalysis, Automated UA Leukoctes 125 Adamaris/uL Last Edit by Edwige Mensah CMA on 05/24/25 13:16 UA Nitrite Negative Last Edit by Edwige Mensah CMA on 05/24/25 13:16 UA Urobilinogen 0.2 mg/dL Last Edit by Edwige Mensah CMA on 05/24/25 13:16 UA Protein 0 mg/dL Last Edit by Edwige Mensah CMA on 05/24/25 13:16 UA pH 6.0 Last Edit by Edwige Mensah CMA on 05/24/25 13:16 UA Blood 0 David/uL Last Edit by Edwige Mensah CMA on 05/24/25 13:16 UA Specific [place] 1.030 Last Edit by Edwige Mensah CMA on 05/24/25 13:16 UA Ketone Negative Last Edit by Edwige Mensah CMA on 05/24/25 13:16 UA Bilirubin 0 mg/dL Last Edit by Edwige Mensah CMA on 05/24/25 13:16 UA Glucose 0 mg/dL Last Edit by Edwige Mensah CMA on 05/24/25 13:16 Results Reviewed Results Reviewed: Laboratory Last Values Urine pH (Auto) 6.0 05/24/25 13:15 Specific [place] (Auto) 1.030 05/24/25 13:15 Urine Protein (Auto) 0 mg/dL 05/24/25 13:15 Glucose (UA)(Auto) 0 mg/dL 05/24/25 13:15 Urine Ketones (Auto) Negative 05/24/25 13:15 Urine Blood (Auto) 0 David/uL 05/24/25 13:15 Urine Nitrite (Auto) Negative 05/24/25 13:15 Urine Bilirubin (Auto) 0 mg/dL 05/24/25 13:15 Urine Urobilinogen (Auto) 0.2 mg/dL 05/24/25 13:15 Leukocyte Esterase (Auto) 125 Adamaris/uL H* 05/24/25 13:15 Assessment & Plan Assessment & Plan (1) Vaginal discharge: Code(s): N89.8 - Other specified noninflammatory disorders of vagina Plan Most likely BV vs STD vs UTI vs yeast UA is 2+ leuko plan - Complete the current course of metronidazole and then start clindamycin. - Conduct a repeat swab to check for changes or persistence of the infection - Send urine culture to confirm infection. - will order gc/chlam - Prescribe antibiotics based on culture sensitivity if positive. - Discussed that her partner may need to be treated - needs to f/u with her OBGYN if her symptoms do not resolve Orders: Orders CT NG by PCR Urine Today N89.8 - Other specified noninflammatory disorders of vagina AMB Urinalysis Automated Today Z13.9 - Encounter for screening, unspecified Urine Culture Today N39.0 - Urinary tract infection, site not specified, N89.8 - Other specified noninflammatory disorders of vagina Bacterial Vaginosis Panel Today N89.8 - Other specified noninflammatory disorders of vagina Medications: New clindamycin HCl 450 mg (3 x 150 mg) PO Q8H 15 caps 0RF Coding Level of Care Code Est Pt Level 3 (16498) Diagnoses Vaginal discharge N89.8
--- OUTSIDE RECORDS SUMMARY | 2025-05-25 04:03 | XMS_ITS | Clinical Summary ---
Author Organization [facility] ity Address [address] [place] [address] Care Team Providers [facility] Recruiting Intern Name Role Phone Unavailable Primary Care Provider [...] EST Narrative 06/09/2018 4:39 PM EST EXAMINATION: [phone] - MG 3D Dig Ruthann Screen Bilat w/CA [id number] Exam Date: Jun 09 2018 WORKING DIAGNOSIS: [...] Note Jalil Ruelas MD - 05/30/2019 EXAMINATION: [phone] - MG 3D Dig Ruthann Screen Bilat w/CA [id number] Exam Date: Jun 09 2018 WORKING DIAGNOSIS: [...] for the next mammogram. 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 [address] CYTOPATHOLOGY REPORT Patient Name: EDA ROLLINS : 1970 Location: [facility] Case #: [id number] Procedure Date: 10/31/2017 Received: 10/31/2017 Reported: 11/05/2017 [...]
== END 2025-05-24 13:44 | disposition home or self-care (01) ==
PROVIDERS: PCP Internal Medicine; Visit Provider Physician Assistant Medical
DX: N89.8 Other specified noninflammatory disorders of vagina (principal); Z13.9 Encounter for screening, unspecified